=== PATIENT | female | born 1935 | race Caucasian/White ===

== ENCOUNTER 2020-07-11 11:30 | Observation (INO) ==
[2020-07-11] MEDS ORDERED: hydrALAZINE HCL 20 MG/ML VIAL IV STA (13:12)
[2020-07-11 13:16] LABS: Basophils # (auto) 0.03 K/uL (0-0.2); Basophils % (auto) 0.3 %; Eosinophils # (auto) 0.43 K/uL (0-0.5); Eosinophils % (auto) 3.9 %; Hematocrit (blood only) 41.2 % (37-47); Hemoglobin 13.5 g/dL (12.0-16.0); Immature Granulocytes # (auto) 0.02 K/uL (0.00-0.02); Immature Granulocytes % (auto) 0.2 %; Lymphocytes # (auto) 2.22 K/uL (1.2-3.4); Lymphocytes % (auto) 20.3 %; Mean Corpuscular Hemoglobin 29.2 pg (25-34); Mean Corpuscular Hgb Conc 32.8 g/dL (32-36); Mean Platelet Volume 10.5 fL (7.4-10.4); Monocytes # (auto) 0.49 K/uL (0.11-0.59); Monocytes % (auto) 4.5 %; Neutrophils # (auto) 7.72 K/uL (1.4-6.5); Neutrophils % (auto) 70.8 %; Platelet Count 250 K/uL (130-400); RDW Standard Deviation 48.7 fL (36.4-46.3); Red Blood Count 4.63 M/uL (4.2-5.4); White Blood Count 10.91 K/uL (4.8-10.8)
--- NOTE | 2020-07-11 13:28 | XRay Report ---
XR chest 1V portable CLINICAL HISTORY: Chest Pain COMPARISON STUDY: No previous studies for comparison. FINDINGS: No pneumothorax. No pleural effusion. Bilateral lungs are slightly hyperinflated with flattening in the right the left hemidiaphragm. Small atelectasis is seen at the right base. Cardiomediastinal silhouette is within normal limits in size. No significant pulmonary vascular congestion.. Aorta is calcified. Osseous structures: Degenerative changes of the spine. IMPRESSION: 1. Hyperinflated bilateral lungs. 2. Minimal atelectasis at the right base. ACT 112: Negative or not required by law. The above report was generated using voice recognition software. It may contain grammatical, syntax o r spelling errors. Electronically signed by: Cherly Mabry DO 07/11/2020 1:26 PM
[2020-07-11 13:30] LABS: Alanine Aminotransferase 16 U/L (12-78); Albumin Level 3.7 gm/dl (3.4-5.0); BUN Creatinine Ratio 16.5 (10-20); Blood Urea Nitrogen 32 mg/dl (7-18); Calcium 9.4 mg/dl (8.5-10.1); Carbon Dioxide 24 mmol/L (21-32); Chloride 110 mmol/L (98-107); Creatinine Clr Calc Pharmacy 21.4 ml/min; Est GFR (African American) 27.8 ml/min; Glucose 127 mg/dl (70-99); Lipase 87 U/L (73-393); Potassium 4.1 mmol/L (3.5-5.1); Sodium 141 mmol/L (136-145)
[2020-07-11 13:35] LABS: Albumin Globulin Ratio 0.9 (0.9-2); Alkaline Phosphatase 70 U/L (45-117); Aspartate Aminotransferase 12 U/L (15-37); Bilirubin,Total 0.7 mg/dl (0.2-1); Globulin 4.1 gm/dl (2.5-4.0); Total Protein 7.8 gm/dl (6.4-8.2); Troponin I < 0.015 ng/ml (0-0.045)
--- NOTE | 2020-07-11 14:17 | CT Scan Report ---
CT SCAN OF THE BRAIN WITHOUT IV CONTRAST CLINICAL HISTORY: Hypertension. Headache. COMPARISON STUDY: No priors. TECHNIQUE: Unenhanced axial CT scan of the brain is performed from the vertex to the skull base. A do se lowering technique was utilized adhering to the principles of ALARA. CT DOSE: 525.26 mGycm FINDINGS: Brain parenchyma: There are age-related involutional changes noting mild subcortical and periventric ular microangiopathic change. There is no hemorrhage, mass effect, or evidence of acute territorial i schemia by CT criteria. Mineralization is noted in the basal ganglia. 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 Gallegos-white matter differentiation is preserved. No extra-axial fluid collection i s seen. Ventricles, sulci, cisterns: Prominent secondary to involutional change. Intracranial vasculature: There is atherosclerotic calcification of the cavernous carotid and vertebr al arteries. Calvarium: Unremarkable. Sinuses and mastoids: The visualized paranasal sinuses are clear. There is a moderate right mastoid e ffusion. The left mastoid air cells are well pneumatized. Orbits: The bony orbits are grossly intact. There are bilateral ocular lens implants. IMPRESSION: There is no hemorrhage, mass effect, or evidence of acute territorial ischemia by CT crit nat. ACT 112: Negative or not required by law. Electronically signed by: Dalton Vasquez M.D. 07/11/2020 2:16 PM
[2020-07-11] MEDS ORDERED: amLODIPine BESYLATE 5 MG TAB PO ONE ×2 (14:44→19:15)
[2020-07-11] MEDS ORDERED: hydrALAZINE HCL 20 MG/ML VIAL IV ONE (15:27)
--- NOTE | 2020-07-11 15:52 | Electrocardiogram Report ---
Test Reason : Blood Pressure : / mmHG Vent. Rate : 070 BPM Atrial Rate : 070 BPM P-R Int : 174 ms QRS Dur : 074 ms QT Int : 416 ms P-R-T Axes : 037 -15 037 degrees QTc Int : 449 ms Sinus rhythm with Premature atrial complexes Septal infarct , age undetermined Abnormal ECG No previous ECGs available Confirmed by Leif Peters ([id number]) on 07/11/2020 3:51:25 PM Referred By: REFERRED SELF Confirmed By:Leif Peters
--- NOTE | 2020-07-11 15:58 | Emergency Department Note ---
History of Present Illness General Chief complaint: Hypertension Source: patient, family (Daughter via phone), EMS and RN notes reviewed Mode of arrival: EMS Limitations: no limitations and other (?memory impairment) History of Present Illness Provider complaint: Hypertension, mild headache, blurry vision, sent by cardiology This patient is an 85-year-old female who presents to the emergency department with complaints of high blood pressure. Patient presented to her [employer], Dr. Rondon's office today for routine appointment. Patient was noted to have markedly elevated blood pressure. She states she drove herself here from [place] and got lost. She called her daughter who was able to get her to the office however the patient states her vision was blurry and she was not able to see the signs. Patient states she developed a headache behind the eyes. Staff at the [employer] office called EMS to direct the patient to the emergency department for treatment of the hypertension. According to the patient's daughter patient's blood pressure is either "in the dangerous level or too low." She attributes this to the stress of driving to the appointment. Home Medications Medication Instructions Recorded Confirmed Type aspirin 81 mg PO DAILY 07/11/20 07/11/20 History bupropion HCl 100 mg PO BID 07/11/20 07/11/20 History carvedilol 12.5 mg PO BID 07/11/20 07/11/20 History olopatadine 1 drp OPB DAILY 07/11/20 07/11/20 History rosuvastatin 20 mg PO HS 07/11/20 07/11/20 History amlodipine 5 mg PO QAM #0 tab 07/12/20 07/11/20 Rx amlodipine [Norvasc] 2.5 mg PO HS #0 tab 07/12/20 07/11/20 Rx hydralazine 10 mg PO TID #90 tab 07/12/20 Rx losartan 50 mg PO BID #0 tab 07/12/20 07/11/20 Rx Allergies Allergy/AdvReac Type Severity Reaction Status Date / Time codeine AdvReac Unknown Unknown Unverified 07/11/20 13:57 latex AdvReac Unknown Unknown Unverified 07/11/20 13:57 Penicillins AdvReac Unknown Unknown Unverified 07/11/20 13:57 Tetanus Vaccines and Toxoid AdvReac Unknown Unknown Unverified 07/11/20 13:57 Past Med/Surg History Medical History Asymptomatic carotid artery stenosis Atrial fibrillation Chronic interstitial lung disease Depression Hyperlipidemia Hypertension Lupus (systemic lupus erythematosus) Memory impairment Sacroiliac dysfunction TIA (transient ischemic attack) Tobacco smoker, 20 cigarettes or fewer per day Surgical History H/O excision of lamina of cervical vertebra for decompression of spinal cord H/O sinus surgery Social History Smoking Status: Current every day smoker Tobacco Type: Cigarettes Cigarettes Per Day: 5-8; Do You Dip or Chew Tobacco: No; Hx Alcohol Use: Yes Hx Substance Use: No Preferred Language: Setswana Communication Ability: Effective Transmission Builder Required: No Beliefs That Will Affect Care: Baptist Baptist Beliefs: [employer]ar[employer] marital status: / Current Living Situation: Alone Current Living Situation Comment: elderly apartment complex current occupational status: retired Other Information That Helps Us Care for You: No Feels Safe at Home: Yes Safety Concerns: Feels Safe At This Time Assistive Devices: None Review of Systems See HPI for pertinent positives & negatives. and A total of 10 systems reviewed and were otherwise negative Physical Exam Vital Signs Vital Signs - 24 hr 07/11/20 11:37 07/11/20 11:38 07/11/20 12:09 Temperature 36.5 C Temperature Source Oral Pulse Rate 69 90 69 Pulse Rate [Left Finger] 90 Pulse Rate from SpO2 Sensor 68 73 Pulse Rhythm Irregular Pulse Rhythm [Left Finger] Regular Pulse Strength Normal Pulse Strength [Left Finger] Normal Respiratory Rate 18 16 19 Respiratory Effort / Characteristics Non-Labored Respiratory Depth Normal Respiratory Pattern Regular Blood Pressure 255/151 H 255/151 H Blood Pressure [Right Arm] 255/151 H Blood Pressure Mean 185 185 Blood Pressure Mean [Right Arm] 185 Blood Pressure Position Sitting Pulse Oximetry 96 99 97 Oxygen Delivery Method Room Air Sepsis Recent Fever Within 48 Hours No Sepsis New/Unexplained Change in Mental Status N/A Sepsis Action Taken by Nursing No Action Required 07/11/20 12:10 07/11/20 12:20 07/11/20 12:30 Temperature Temperature Source Pulse Rate 72 70 73 Pulse Rate [Left Finger] Pulse Rate from SpO2 Sensor 73 66 72 Pulse Rhythm Pulse Rhythm [Left Finger] Pulse Strength Pulse Strength [Left Finger] Respiratory Rate 19 22 17 Respiratory Effort / Characteristics Respiratory Depth Respiratory Pattern Blood Pressure Blood Pressure [Right Arm] Blood Pressure Mean Blood Pressure Mean [Right Arm] Blood Pressure Position Pulse Oximetry 96 95 97 Oxygen Delivery Method Sepsis Recent Fever Within 48 Hours Sepsis New/Unexplained Change in Mental Status Sepsis Action Taken by Nursing 07/11/20 12:40 07/11/20 12:50 07/11/20 12:57 Temperature Temperature Source Pulse Rate 65 68 Pulse Rate [Left Finger] 70 Pulse Rate from SpO2 Sensor 65 Pulse Rhythm Pulse Rhythm [Left Finger] Regular Pulse Strength Pulse Strength [Left Finger] Respiratory Rate 20 20 16 Respiratory Effort / Characteristics Respiratory Depth Normal Respiratory Pattern Blood Pressure Blood Pressure [Right Arm] 228/146 H Blood Pressure Mean Blood Pressure Mean [Right Arm] 173 Blood Pressure Position Pulse Oximetry 98 Oxygen Delivery Method Sepsis Recent Fever Within 48 Hours Sepsis New/Unexplained Change in Mental Status Sepsis Action Taken by Nursing 07/11/20 13:00 07/11/20 13:05 07/11/20 13:10 Temperature Temperature Source Pulse Rate 69 70 70 Pulse Rate [Left Finger] Pulse Rate from SpO2 Sensor Pulse Rhythm Pulse Rhythm [Left Finger] Pulse Strength Pulse Strength [Left Finger] Respiratory Rate 19 16 19 Respiratory Effort / Characteristics Respiratory Depth Respiratory Pattern Blood Pressure Blood Pressure [Right Arm] Blood Pressure Mean Blood Pressure Mean [Right Arm] Blood Pressure Position Pulse Oximetry 98 Oxygen Delivery Method Room Air Sepsis Recent Fever Within 48 Hours Sepsis New/Unexplained Change in Mental Status Sepsis Action Taken by Nursing 07/11/20 13:12 07/11/20 13:25 07/11/20 13:28 Temperature Temperature Source Pulse Rate 67 82 78 Pulse Rate [Left Finger] Pulse Rate from SpO2 Sensor 65 82 79 Pulse Rhythm Pulse Rhythm [Left Finger] Pulse Strength Pulse Strength [Left Finger] Respiratory Rate 20 21 21 Respiratory Effort / Characteristics Respiratory Depth Respiratory Pattern Blood Pressure 221/90 H 226/91 H Blood Pressure [Right Arm] Blood Pressure Mean 133 136 Blood Pressure Mean [Right Arm] Blood Pressure Position Pulse Oximetry 99 97 99 Oxygen Delivery Method Sepsis Recent Fever Within 48 Hours Sepsis New/Unexplained Change in Mental Status Sepsis Action Taken by Nursing 07/11/20 13:30 07/11/20 13:32 07/11/20 13:40 Temperature Temperature Source Pulse Rate 74 77 Pulse Rate [Left Finger] Pulse Rate from SpO2 Sensor 74 77 Pulse Rhythm Pulse Rhythm [Left Finger] Pulse Strength Pulse Strength [Left Finger] Respiratory Rate 19 24 Respiratory Effort / Characteristics Respiratory Depth Respiratory Pattern Blood Pressure 223/79 H Blood Pressure [Right Arm] Blood Pressure Mean 127 Blood Pressure Mean [Right Arm] Blood Pressure Position Pulse Oximetry 99 98 Oxygen Delivery Method Room Air Sepsis Recent Fever Within 48 Hours Sepsis New/Unexplained Change in Mental Status Sepsis Action Taken by Nursing 07/11/20 13:41 07/11/20 13:50 07/11/20 13:51 Temperature Temperature Source Pulse Rate 93 H 72 72 Pulse Rate [Left Finger] Pulse Rate from SpO2 Sensor 79 72 73 Pulse Rhythm Pulse Rhythm [Left Finger] Pulse Strength Pulse Strength [Left Finger] Respiratory Rate 22 20 24 Respiratory Effort / Characteristics Respiratory Depth Respiratory Pattern Blood Pressure 199/82 H 214/76 H Blood Pressure [Right Arm] Blood Pressure Mean 121 122 Blood Pressure Mean [Right Arm] Blood Pressure Position Pulse Oximetry 98 98 98 Oxygen Delivery Method Sepsis Recent Fever Within 48 Hours Sepsis New/Unexplained Change in Mental Status Sepsis Action Taken by Nursing 07/11/20 14:06 07/11/20 14:10 07/11/20 14:11 Temperature Temperature Source Pulse Rate 83 75 77 Pulse Rate [Left Finger] Pulse Rate from SpO2 Sensor 82 75 76 Pulse Rhythm Pulse Rhythm [Left Finger] Pulse Strength Pulse Strength [Left Finger] Respiratory Rate 15 20 20 Respiratory Effort / Characteristics Respiratory Depth Respiratory Pattern Blood Pressure 196/81 H Blood Pressure [Right Arm] Blood Pressure Mean 119 Blood Pressure Mean [Right Arm] Blood Pressure Position Pulse Oximetry 100 100 100 Oxygen Delivery Method Sepsis Recent Fever Within 48 Hours Sepsis New/Unexplained Change in Mental Status Sepsis Action Taken by Nursing 07/11/20 14:20 07/11/20 14:21 07/11/20 14:30 Temperature Temperature Source Pulse Rate 71 71 72 Pulse Rate [Left Finger] Pulse Rate from SpO2 Sensor 71 71 72 Pulse Rhythm Pulse Rhythm [Left Finger] Pulse Strength Pulse Strength [Left Finger] Respiratory Rate 19 20 21 Respiratory Effort / Characteristics Respiratory Depth Respiratory Pattern Blood Pressure 190/73 H 209/72 H Blood Pressure [Right Arm] Blood Pressure Mean 112 117 Blood Pressure Mean [Right Arm] Blood Pressure Position Pulse Oximetry 100 100 98 Oxygen Delivery Method Sepsis Recent Fever Within 48 Hours Sepsis New/Unexplained Change in Mental Status Sepsis Action Taken by Nursing 07/11/20 14:31 07/11/20 14:40 07/11/20 14:41 Temperature Temperature Source Pulse Rate 76 72 71 Pulse Rate [Left Finger] Pulse Rate from SpO2 Sensor 75 71 71 Pulse Rhythm Pulse Rhythm [Left Finger] Pulse Strength Pulse Strength [Left Finger] Respiratory Rate 20 18 18 Respiratory Effort / Characteristics Respiratory Depth Respiratory Pattern Blood Pressure 208/72 H Blood Pressure [Right Arm] Blood Pressure Mean 117 Blood Pressure Mean [Right Arm] Blood Pressure Position Pulse Oximetry 98 98 99 Oxygen Delivery Method Sepsis Recent Fever Within 48 Hours Sepsis New/Unexplained Change in Mental Status Sepsis Action Taken by Nursing 07/11/20 14:50 07/11/20 14:51 07/11/20 15:00 Temperature Temperature Source Pulse Rate 73 90 72 Pulse Rate [Left Finger] Pulse Rate from SpO2 Sensor 70 77 71 Pulse Rhythm Pulse Rhythm [Left Finger] Pulse Strength Pulse Strength [Left Finger] Respiratory Rate 23 20 18 Respiratory Effort / Characteristics Respiratory Depth Respiratory Pattern Blood Pressure 200/75 H 216/75 H Blood Pressure [Right Arm] Blood Pressure Mean 116 122 Blood Pressure Mean [Right Arm] Blood Pressure Position Pulse Oximetry 97 99 98 Oxygen Delivery Method Sepsis Recent Fever Within 48 Hours Sepsis New/Unexplained Change in Mental Status Sepsis Action Taken by Nursing 07/11/20 15:01 Temperature Temperature Source Pulse Rate 76 Pulse Rate [Left Finger] Pulse Rate from SpO2 Sensor 75 Pulse Rhythm Pulse Rhythm [Left Finger] Pulse Strength Pulse Strength [Left Finger] Respiratory Rate 18 Respiratory Effort / Characteristics Respiratory Depth Respiratory Pattern Blood Pressure Blood Pressure [Right Arm] Blood Pressure Mean Blood Pressure Mean [Right Arm] Blood Pressure Position Pulse Oximetry 98 Oxygen Delivery Method Sepsis Recent Fever Within 48 Hours Sepsis New/Unexplained Change in Mental Status Sepsis Action Taken by Nursing Vital signs reviewed. General: Well-appearing 85-year-old female, in no significant distress. HEENT: No scleral icterus/conjunctival injection, PERRLA, neck supple. Atraumatic. No meningeal signs Cardiovascular: Regular rate and rhythm, occasional ectopy, no extra sounds. Pulmonary: Clear to auscultation bilaterally, normal work of breathing. Abdomen: Soft, nontender, nondistended, positive bowel sounds. Musculoskeletal: Atraumatic, no peripheral edema. Neurologic: Patient awake alert and oriented. Answers most questions ap propriately, full strength in all 4 extremities. Cranial nerves 2 through 12 grossly intact. Skin: Warm, dry, no rash Course Administered Medications Discontinued Medications Amlodipine Besylate (Amlodipine Besylate 5 Mg Tab) 5 mg PO NOW ONE Stop: 07/11/20 14:45 Last Admin: 07/11/20 15:07 Dose: 5 mg Documented by: [id number] Amlodipine Besylate (Amlodipine Besylate 5 Mg Tab) 7.5 mg PO DAILY MAR[place]UY Stop: 08/11/20 08:59 Last Admin: 07/12/20 08:08 Dose: 7.5 mg Documented by: [id number] Amlodipine Besylate (Amlodipine Besylate 5 Mg Tab) 2.5 mg PO NOW ONE Stop: 07/11/20 19:16 Last Admin: 07/11/20 20:21 Dose: 2.5 mg Documented by: [id number] Aspirin (Aspirin 81 Mg Ectab) 81 mg PO DAILY [place]UY Stop: 08/11/20 08:59 Last Admin: 07/12/20 08:08 Dose: 81 mg Documented by: [id number] Bupropion HCl (Bupropion Sr 100 Mg Tabcr) 100 mg PO BID [place] Stop: 08/10/20 20:59 Last Admin: 07/12/20 08:08 Dose: 100 mg Documented by: [id number] Admin: 07/11/20 20:23 Dose: 100 mg Documented by: [id number] Carvedilol (Carvedilol 12.5 Mg Tab) 12.5 mg PO BID [place]Y Stop: 08/10/20 20:59 Last Admin: 07/12/20 08:07 Dose: 12.5 mg Documented by: [id number] Admin: 07/11/20 20:23 Dose: 12.5 mg Documented by: [id number] Hydralazine HCl (Hydralazine Hcl 20 Mg/Ml Vial) 10 mg IV NOW STA Stop: 07/11/20 13:13 Last Admin: 07/11/20 13:27 Dose: 10 mg Documented by: [id number] Hydralazine HCl (Hydralazine Hcl 20 Mg/Ml Vial) 5 mg IV NOW ONE Stop: 07/11/20 15:28 Last Admin: 07/11/20 15:38 Dose: 5 mg Documented by: [id number] Hydralazine HCl (Hydralazine 10 Mg Tab) 10 mg PO TID [place]Y Stop: 08/10/20 22:14 Last Admin: 07/12/20 08:07 Dose: 10 mg Documented by: [id number] Admin: 07/11/20 23:29 Dose: 10 mg Documented by: [id number] Hydralazine HCl (Hydralazine 10 Mg Tab) 10 mg PO TID [place]Y Stop: 08/11/20 13:59 Last Admin: 07/12/20 14:13 Dose: 10 mg Documented by: [id number] Losartan Potassium (Losartan Potassium 50 Mg Tab) 100 mg PO DAILY [place]Y Stop: 08/11/20 08:59 Last Admin: 07/12/20 08:08 Dose: 100 mg Documented by: [id number] Miscellaneous (Order Awaiting Action) 1 ea N/A QS [place] Stop: 08/11/20 00:00 Last Admin: 07/12/20 14:15 Dose: Not Given Documented by: [id number] Admin: 07/12/20 09:05 Dose: Not Given Documented by: [id number] Admin: 07/11/20 23:53 Dose: Not Given Documented by: [id number] Rosuvastatin Calcium (Rosuvastatin Calcium 20 Mg Tab) 20 mg PO HS [place] Stop: 08/10/20 20:59 Last Admin: 07/11/20 20:24 Dose: 20 mg Documented by: [id number] Medical Decision Making Differential Diagnosis Hypertensive urgency, medication noncompliance, intracranial hemorrhage, migraine headache, intracranial mass, TIA, renal artery stenosis, renal failure, anxiety. Medical Records Attestation: I reviewed the patient's medical records. Home Medications Current Medication List: was personally reviewed by me Laboratory Data Attestation: I reviewed the patient's lab results. Result diagrams: 07/12/20 06:57 07/12/20 06:57 Lab Results 07/11/20 07/11/20 07/11/20 Range/Units 11:57 11:57 11:57 WBC 10.91 H (4.8-10.8) K/uL RBC 4.63 (4.2-5.4) M/uL Hgb 13.5 (12.0-16.0) g/dL Hct 41.2 (37-47) % MCV 89.0 (80-100) fL MCH 29.2 (25-34) pg MCHC 32.8 (32-36) g/dL RDW Std Deviation 48.7 H (36.4-46.3) fL RDW Coeff of Gabriela 15.0 H (11.5-14.5) % Plt Count 250 (130-400) K/uL MPV 10.5 H (7.4-10.4) fL Immature Gran % (Auto) 0.2 % Neut % (Auto) 70.8 % Lymph % (Auto) 20.3 % [place] % (Auto) 4.5 % Eos % (Auto) 3.9 % Baso % (Auto) 0.3 % Neut # (Auto) 7.72 H (1.4-6.5) K/uL Lymph # (Auto) 2.22 (1.2-3.4) K/uL [place] # (Auto) 0.49 (0.11-0.59) K/uL Eos # (Auto) 0.43 (0-0.5) K/uL Baso # (Auto) 0.03 (0-0.2) K/uL Immature Gran # (Auto) 0.02 (0.00-0.02) K/uL APTT 27.0 (21.0-31.0) Seconds PTT Ratio 1.0 Sodium 141 (136-145) mmol/L Potassium 4.1 (3.5-5.1) mmol/L Chloride 110 H (98-107) mmol/L Carbon Dioxide 24 (21-32) mmol/L Anion Gap 7.0 (3-11) BUN 32 H (7-18) mg/dl Creatinine 1.91 H (0.6-1.2) mg/dl Est Cr Clr Drug Dosing 21.4 ml/min Est GFR ( Amer) 27.8 ml/min Est GFR (Non-Af Amer) 24.0 ml/min BUN/Creatinine Ratio 16.5 (10-20) Glucose 127 H (70-99) mg/dl Calcium 9.4 (8.5-10.1) mg/dl Total Bilirubin 0.7 (0.2-1) mg/dl AST 12 L (15-37) U/L ALT 16 (12-78) U/L Alkaline Phosphatase 70 (45-117) U/L Troponin I < 0.015 (0-0.045) ng/ml Total Protein 7.8 (6.4-8.2) gm/dl Albumin 3.7 (3.4-5.0) gm/dl Globulin 4.1 H (2.5-4.0) gm/dl Albumin/Globulin Ratio 0.9 (0.9-2) Lipase 87 (73-393) U/L Urine Color Urine Appearance (Clear) Urine pH (4.5-7.5) Ur Specific [place] (1.000-1.030) Urine Protein (Negative) Urine Glucose (UA) (Negative) Urine Ketones (Negative) Urine Blood (Negative) Urine Nitrite (Negative) Urine Bilirubin (Negative) Urine Urobilinogen (Negative) Ur Leukocyte Esterase (Negative) Urine WBC (Auto) (0-5) /hpf Urine RBC (Auto) (0-4) /hpf U Hyaline Cast (Auto) (0-5) /lpf U Epithel Cells (Auto) (0-5) /lpf Urine Bacteria (Auto) (Negative) COVID-19 Eval Order SARS-CoV-2 (PCR) (Negative) 07/11/20 07/11/20 07/11/20 Range/Units 15:25 15:25 15:30 WBC (4.8-10.8) K/uL RBC (4.2-5.4) M/uL Hgb (12.0-16.0) g/dL Hct (37-47) % MCV (80-100) fL MCH (25-34) pg MCHC (32-36) g/dL RDW Std Deviation (36.4-46.3) fL RDW Coeff of Gabriela (11.5-14.5) % Plt Count (130-400) K/uL MPV (7.4-10.4) fL Immature Gran % (Auto) % Neut % (Auto) % Lymph % (Auto) % [place] % (Auto) % Eos % (Auto) % Baso % (Auto) % Neut # (Auto) (1.4-6.5) K/uL Lymph # (Auto) (1.2-3.4) K/uL [place] # (Auto) (0.11-0.59) K/uL Eos # (Auto) (0-0.5) K/uL Baso # (Auto) (0-0.2) K/uL Immature Gran # (Auto) (0.00-0.02) K/uL APTT (21.0-31.0) Seconds PTT Ratio Sodium (136-145) mmol/L Potassium (3.5-5.1) mmol/L Chloride (98-107) mmol/L Carbon Dioxide (21-32) mmol/L Anion Gap (3-11) BUN (7-18) mg/dl Creatinine (0.6-1.2) mg/dl Est Cr Clr Drug Dosing ml/min Est GFR ( Amer) ml/min Est GFR (Non-Af Amer) ml/min BUN/Creatinine Ratio (10-20) Glucose (70-99) mg/dl Calcium (8.5-10.1) mg/dl Total Bilirubin (0.2-1) mg/dl AST (15-37) U/L ALT (12-78) U/L Alkaline Phosphatase (45-117) U/L Troponin I (0-0.045) ng/ml Total Protein (6.4-8.2) gm/dl Albumin (3.4-5.0) gm/dl Globulin (2.5-4.0) gm/dl Albumin/Globulin Ratio (0.9-2) Lipase (73-393) U/L Urine Color Yellow Urine Appearance Clear (Clear) Urine pH 5.0 (4.5-7.5) Ur Specific [place] 1.008 (1.000-1.030) Urine Protein 1+ H (Negative) Urine Glucose (UA) Negative (Negative) Urine Ketones Negative (Negative) Urine Blood Trace H (Negative) Urine Nitrite Negative (Negative) Urine Bilirubin Negative (Negative) Urine Urobilinogen Negative (Negative) Ur Leukocyte Esterase Negative (Negative) Urine WBC (Auto) 1-5 (0-5) /hpf Urine RBC (Auto) 0-4 (0-4) /hpf U Hyaline Cast (Auto) 0 (0-5) /lpf U Epithel Cells (Auto) 10-20 H (0-5) /lpf Urine Bacteria (Auto) Negative (Negative) COVID-19 Eval Order Covid19 at [facility] SARS-CoV-2 (PCR) NEGATIVE (Negative) Imaging Data Radiologist's Impression: Chest X-Ray 07/11/20 13:01 XR chest 1V portable CLINICAL HISTORY: Chest Pain COMPARISON STUDY: No previous studies for comparison. FINDINGS: No pneumothorax. No pleural effusion. Bilateral lungs are slightly hyperinflated with flattening in the right the left hemidiaphragm. Small atelectasis is seen at the right base. Cardiomediastinal silhouette is within normal limits in size. No significant pulmonary vascular congestion.. Aorta is calcified. Osseous structures: Degenerative changes of the spine. IMPRESSION: 1. Hyperinflated bilateral lungs. 2. Minimal atelectasis at the right base. ACT 112: Negative or not required by law. The above report was generated using voice recognition software. It may contain grammatical, syntax or spelling errors. Electronically signed by: Cheryl Mabry DO 07/11/2020 1:[address] 07/11/20 13:37 CT SCAN OF THE BRAIN WITHOUT IV CONTRAST CLINICAL HISTORY: Hypertension. Headache. COMPARISON STUDY: No priors. TECHNIQUE: Unenhanced axial CT scan of the brain is performed from the vertex to the skull base. A dose lowering technique was utilized adhering to the principles of ALARA. CT DOSE: 525.26 mGycm FINDINGS: Brain parenchyma: There are age-related involutional changes noting mild subcortical and periventricular microangiopathic change. There is no hemorrhage, mass effect, or evidence of acute territorial ischemia by CT criteria. Mineralization is noted in the basal ganglia. 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 Gallegos-white matter differentiation is preserved. No extra-axial fluid collection is seen. Ventricles, sulci, cisterns: Prominent secondary to involutional change. Intracranial vasculature: There is atherosclerotic calcification of the cavernous carotid and vertebral arteries. Calvarium: Unremarkable. Sinuses and mastoids: The visualized paranasal sinuses are clear. There is a moderate right mastoid effusion. The left mastoid air cells are well pneumatized. Orbits: The bony orbits are grossly intact. There are bilateral ocular lens implants. IMPRESSION: There is no hemorrhage, mass effect, or evidence of acute territorial ischemia by CT criteria. ACT 112: Negative or not required by law. Electronically signed by: Dalton Vasquez M.D. 07/11/2020 2:16 PM ECG Data Attestation: I personally reviewed and interpreted this ECG as follows: Indication: + other (Headache/hypertension) Rate (beats per minute): 70 Rhythm: + sinus rhythm ECG Intervals/blocks: + Normal QT-c ECG ST segments: + Normal ST segments ECG Findings: + Q waves (Septal) and + PACs Comparison ECG Date: no prior available Blood Pressure Blood Pressure Findings: Elevated blood pressure Blood Pressure Disposition: further management by hospitalist MDM Narrative This patient was evaluated and appeared to be in no significant distress. Physical examination is fairly reassuring. Patient has no focal neurologic deficit although the marked hypertension, headache and visual changes certainly concerning. CT scan of the head was performed and revealed no acute ischemic change. Patient was medicated with IV hydralazine 10 mg with minimal improvement. She was then given a second dose of 5 mg. Laboratory work reveals renal insufficiency. I did speak with the patient's daughter who states most of her laboratory work is done through [facility] in [place]. Those records were requested and it appears that the patient's renal insufficiency is chronic. Patient also has a history of smoking, lupus and atrial fibrillation. Her blood pressure has been labile. Given the above, the patient's case was discussed with the hospitalist service will evaluate the patient for further management. Patient was made aware of the plans and agrees. Impression & Plan Hypertension, Memory impairment, Tobacco smoker, 20 cigarettes or fewer per day, Headache, Visual changes Discharge Plan Visit Data Chief Complaint: Hypertension ED Provider: Pari Hernández Discharge Problem: Hypertension, Memory impairment, Tobacco smoker, 20 cigarettes or fewer per day, Headache, Visual changes Patient Disposition: Admitted As Inpatient Discharge Instructions Interventions: ED Discharge Assessment Last Done: 07/11/20 18:11 Discharge Problem: Hypertension Qualifiers: Hypertension type: unspecified Qualified Code(s): I10 - Essential (primary) hypertension Headache Qualifiers: Headache type: unspecified Headache chronicity pattern: acute headache Intractability: not intractable Qualified Code(s): R51.9 - Headache, unspecified
[2020-07-11 16:30] LABS: Appearance Urine Clear (Clear); Bacteria Urine Automated Negative (Negative); Bilirubin Urine Negative (Negative); Blood Urine Trace (Negative); Cast Urine Automated 0 /lpf (0-5); Color Urine Yellow; Glucose Urine UA Negative (Negative); Ketones Urine Negative (Negative); Leukocyte Esterase Urine Negative (Negative); Nitrite Urine Negative (Negative); Protein Urine 1+ (Negative); RBC Urine Automated 0-4 /hpf (0-4); Specific Gravity Urine 1.008 (1.000-1.030); Urobilinogen Urine Negative (Negative)
--- NOTE | 2020-07-11 17:31 | History & Physical Report ---
Date of Service July 11, 2020 Assessment & Plan (1) Hypertension: Patient has accelerated hypertension, essential asymptomatic For now, will give patient her usual nighttime medications which consist of the following: Amlodipine 7.5 mg nightly Carvedilol 12.5 mg p.o. twice daily Losartan 100 mg daily Patient received 5 mg of hydralazine IV along with 5 mg of Norvasc tonight. Patient relates previous history where her blood pressure was too low and her blood pressure medications were decreased. Consider addition of hydrochlorothiazide, patient has chronic kidney dysfunction which is at baseline We will asked Dr. Caicedo to consult for further recommendations regarding management. (2) CKD (chronic kidney disease) stage 4, GFR 15-29 ml/min: Compared to laboratory work from February of this year from [facility], creatinine is 2 Continue medications as noted including losartan 100 mg Consider routine inpatient versus outpatient nephrology consultation if not already obtained (3) Hyperlipidemia: Continue Crestor 20 mg daily (4) Depression: Continue bupropion 100 mg twice a day History of Present Illness Chief Complaint: Hypertension Primary Care Provider: Eden Cummins MD This is an 84-year-old female with past medical history of hypertension with labile blood pressures, hyperlipidemia, and depression that presents today with hypertension. Patient is pleasant and good historian. Patient tells me she has been essentially asymptomatic today. She woke up earlier this morning. She lives in [place] and drove to [place] to see Dr. Clarke for a routine appointment. When she checked in, her blood pressure was taken multiple times by several of the staff there including Dr. Clarke himself. Her blood pressure was extremely elevated and she was told to present to the emergency room for further evaluation. On presentation here, her blood pressure was documented as high as 221/90 although staff tells me systolic had averaged over 250. Patient denies any symptoms such as chest pain, shortness of breath, palpitation, abdominal pain, vertigo, fever or chills. When questioned further, she did note a very mild headache focused over her right eye. She did also note she was having some mild trouble seeing distances usually not an issue for her. In the emergency room, patient was given hydralazine 5 mg IV as well as 5 mg of Norvasc which is one of her regular medications. At time my evaluation her blood pressure was down to 181 systolic. Patient is now being placed in observation for further management of her blood pressure. Allergies Allergy/AdvReac Type Severity Reaction Status Date / Time codeine AdvReac Unknown Unknown Unverified 07/11/20 13:57 latex AdvReac Unknown Unknown Unverified 07/11/20 13:57 Penicillins AdvReac Unknown Unknown Unverified 07/11/20 13:57 Tetanus Vaccines and Toxoid AdvReac Unknown Unknown Unverified 07/11/20 13:57 Home Medications Medication Instructions Recorded Confirmed Type amlodipine 5 mg PO DAILY 07/11/20 07/11/20 History amlodipine [Norvasc] 2.5 mg PO DAILY 07/11/20 07/11/20 History aspirin [Aspir-81] 81 mg PO DAILY 07/11/20 07/11/20 History bupropion HCl 100 mg PO BID 07/11/20 07/11/20 History carvedilol 12.5 mg PO BID 07/11/20 07/11/20 History losartan 100 mg PO DAILY 07/11/20 07/11/20 History olopatadine 1 drp OPB DAILY 07/11/20 07/11/20 History rosuvastatin 20 mg PO HS 07/11/20 07/11/20 History Past Med/Surg History Medical History (Updated 07/11/20 @ 17:28 by Tiago Dial DO) Asymptomatic carotid artery stenosis Atrial fibrillation Chronic interstitial lung disease Depression Hyperlipidemia Hypertension Lupus (systemic lupus erythematosus) Memory impairment Sacroiliac dysfunction TIA (transient ischemic attack) Tobacco smoker, 20 cigarettes or fewer per day Surgical History (Updated 07/11/20 @ 15:55 by Pari Hernández MD) H/O excision of lamina of cervical vertebra for decompression of spinal cord H/O sinus surgery Social History (Updated 07/11/20 @ 15:58 by Pari Hernández MD) Smoking Status: Current every day smoker Tobacco Type: Cigarettes Preferred Language: Maori marital status: / Current Living Situation: Alone Current Living Situation Comment: elderly apartment complex current occupational status: retired Feels Safe at Home: Yes Review of Systems Constitutional: no fever, no chills, no weakness, no weight loss and no weight gain Eyes: as per Subjective / HPI; no blind spots, no diplopia, no eye pain and no photophobia Mild blurry vision Respiratory: no cough, no chest congestion, no dyspnea and no dyspnea on exertion Cardiovascular: no chest pain, no orthopnea, no palpitations, no lightheadedness and no edema Gastrointestinal: no abdominal pain, no nausea, no vomiting, no constipation and no diarrhea/loose stools Genitourinary: no dysuria, no difficulty urinating, no urinary frequency, no urinary hesitancy, no urinary urgency and no flank pain Musculoskeletal: no back pain, no neck pain, no joint pain, no stiffness and no myalgia Integumentary: no rash Neurologic: + headache(s); no gait abnormality, no unsteadiness, no falls and no generalized weakness Physical Exam Constitutional: cooperative; no acute distress Eyes: PERRL, conjunctivae normal, anicteric sclerae Neck: trachea midline, no thyromegaly Respiratory: normal respiratory effort Auscultation: + crackles (Right base); no rales, no rhonchi and no wheezes Cardiovascular: Rate/Rhythm: regular rate and regular rhythm Heart Sounds: normal S1 and normal S2 Gastrointestinal (Abdomen): Inspection/Auscultation: abdomen normal to inspection Percussion/Palpation: abdomen soft; abdomen nontender, no guarding, abdomen not rigid and no hepatosplenomegaly Skin: no rashes, warm and dry Results & Data Results & Data ([facility]) Vital Signs (Past 12 Hours) Vital Signs Temp Pulse Pulse Resp BP BP Pulse Ox 07/11/20 16:51 87 27 H 166/83 H 97 07/11/20 16:50 80 21 96 07/11/20 16:41 72 19 97 07/11/20 16:40 72 18 192/74 H 97 07/11/20 16:31 75 18 98 07/11/20 16:30 77 17 192/84 H 97 07/11/20 16:21 77 32 H 98 07/11/20 16:20 76 18 187/73 H 97 07/11/20 16:11 74 18 98 07/11/20 16:10 74 19 185/71 H 98 07/11/20 16:00 75 20 184/73 H 98 07/11/20 15:50 73 22 177/69 H 98 07/11/20 15:40 75 21 196/71 H 98 07/11/20 15:30 214/100 H 07/11/20 15:21 212/80 H 07/11/20 15:01 76 18 98 07/11/20 15:00 72 18 216/75 H 98 07/11/20 14:51 90 20 99 07/11/20 14:50 73 23 200/75 H 97 07/11/20 14:41 71 18 99 07/11/20 14:40 72 18 208/72 H 98 07/11/20 14:31 76 20 98 07/11/20 14:30 72 21 209/72 H 98 07/11/20 14:21 71 20 100 07/11/20 14:20 71 19 190/73 H 100 07/11/20 14:11 77 20 100 07/11/20 14:10 75 20 196/81 H 100 07/11/20 14:06 83 15 100 07/11/20 13:51 72 24 98 07/11/20 13:50 72 20 214/76 H 98 07/11/20 13:41 93 H 22 199/82 H 98 07/11/20 13:40 77 24 98 07/11/20 13:30 74 19 223/79 H 99 07/11/20 13:28 78 21 226/91 H 99 07/11/20 13:25 82 21 97 07/11/20 13:12 67 20 221/90 H 99 07/11/20 13:10 70 19 07/11/20 13:05 70 16 98 07/11/20 13:00 69 19 07/11/20 12:57 70 16 228/146 H 07/11/20 12:50 68 20 07/11/20 12:40 65 20 98 07/11/20 12:30 73 17 97 07/11/20 12:20 70 22 95 07/11/20 12:10 72 19 96 07/11/20 12:09 69 19 97 07/11/20 11:38 36.5 C 90 90 16 255/151 H 255/151 H 99 07/11/20 11:37 69 18 255/[address] SCAN OF THE BRAIN WITHOUT IV CONTRAST CLINICAL HISTORY: Hypertension. Headache. COMPARISON STUDY: No priors. TECHNIQUE: Unenhanced axial CT scan of the brain is performed from the vertex to the skull base. A dose lowering technique was utilized adhering to the principles of ALARA. CT DOSE: 525.26 mGycm FINDINGS: Brain parenchyma: There are age-related involutional changes noting mild subcortical and periventricular microangiopathic change. There is no hemorrhage, mass effect, or evidence of acute territorial ischemia by CT criteria. Mineralization is noted in the basal ganglia. 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 Gallegos-white matter differentiation is preserved. No extra-axial fluid collection is seen. Ventricles, sulci, cisterns: Prominent secondary to involutional change. Intracranial vasculature: There is atherosclerotic calcification of the cavernous carotid and vertebral arteries. Calvarium: Unremarkable. Sinuses and mastoids: The visualized paranasal sinuses are clear. There is a moderate right mastoid effusion. The left mastoid air cells are well pneumatized. Orbits: The bony orbits are grossly intact. There are bilateral ocular lens implants. IMPRESSION: There is no hemorrhage, mass effect, or evidence of acute territorial ischemia by CT criteria. ---- XR chest 1V portable CLINICAL HISTORY: Chest Pain COMPARISON STUDY: No previous studies for comparison. FINDINGS: No pneumothorax. No pleural effusion. Bilateral lungs are slightly hyperinflated with flattening in the right the left hemidiaphragm. Small atelectasis is seen at the right base. Cardiomediastinal silhouette is within normal limits in size. No significant pulmonary vascular congestion.. Aorta is calcified. Osseous structures: Degenerative changes of the spine. IMPRESSION: 1. Hyperinflated bilateral lungs. 2. Minimal atelectasis at the right base. PG Care Time/CCT Total # of Minutes Spent Total Time Spent with Patient: Total time spent is greater than 50% in coordination of care (as documented) at patient's floor/unit and/or counseling patient: Coding Level of Care Code 80800 OBS Care - Level 3 Diagnoses Hypertension I10 CKD (chronic kidney disease) stage 4, GFR 15-29 ml/min N18.4 Hyperlipidemia E78.5 Depression F32.9
[2020-07-11] MEDS ORDERED: ONDANSETRON INJ 2 MG/ML 2 ML VIAL IV PRN (18:51)
[2020-07-11] MEDS ORDERED: amLODIPine BESYLATE 5 MG TAB PO SCH (18:51)
[2020-07-11] MEDS ORDERED: ACETAMINOPHEN 325 MG TAB PO PRN (18:51)
[2020-07-11] MEDS: carvediloL 12.5 MG TAB PO SCH (20:23)
[2020-07-11] MEDS: buPROPion SR 100 MG TABCR PO SCH (20:23)
[2020-07-11] MEDS ORDERED: ROSUVASTATIN CALCIUM 20 MG TAB PO SCH (21:00)
[2020-07-11] MEDS: hydrALAZINE 10 MG TAB PO SCH (23:29)
[2020-07-12 07:16] LABS: Basophils # (auto) 0.02 K/uL (0-0.2); Basophils % (auto) 0.2 %; Eosinophils # (auto) 0.45 K/uL (0-0.5); Eosinophils % (auto) 4.9 %; Hematocrit (blood only) 36.9 % (37-47); Hemoglobin 12.2 g/dL (12.0-16.0); Immature Granulocytes # (auto) 0.01 K/uL (0.00-0.02); Immature Granulocytes % (auto) 0.1 %; Lymphocytes # (auto) 2.68 K/uL (1.2-3.4); Lymphocytes % (auto) 29.4 %; Mean Corpuscular Hemoglobin 29.1 pg (25-34); Mean Corpuscular Hgb Conc 33.1 g/dL (32-36); Mean Corpuscular Volume 88.1 fL (80-100); Mean Platelet Volume 10.1 fL (7.4-10.4); Monocytes # (auto) 0.54 K/uL (0.11-0.59); Monocytes % (auto) 5.9 %; Neutrophils # (auto) 5.41 K/uL (1.4-6.5); Neutrophils % (auto) 59.5 %; Platelet Count 235 K/uL (130-400); RDW Coefficient of Variation 14.9 % (11.5-14.5); RDW Standard Deviation 48.3 fL (36.4-46.3); Red Blood Count 4.19 M/uL (4.2-5.4); White Blood Count 9.11 K/uL (4.8-10.8)
[2020-07-12 07:32] LABS: BUN Creatinine Ratio 16.8 (10-20); Calcium 9.2 mg/dl (8.5-10.1); Creatinine Clr Calc Pharmacy 16.8 ml/min; Est GFR (African American) 24.4 ml/min; Magnesium 2.4 mg/dl (1.8-2.4); Potassium 4.4 mmol/L (3.5-5.1)
[2020-07-12] MEDS: hydrALAZINE 10 MG TAB PO SCH (08:07)
[2020-07-12] MEDS: carvediloL 12.5 MG TAB PO SCH (08:07)
[2020-07-12] MEDS: buPROPion SR 100 MG TABCR PO SCH (08:08)
[2020-07-12] MEDS ORDERED: amLODIPine BESYLATE 5 MG TAB PO SCH (09:00)
[2020-07-12] MEDS ORDERED: ASPIRIN 81 MG ECTAB PO SCH (09:00)
[2020-07-12] MEDS ORDERED: LOSARTAN POTASSIUM 50 MG TAB PO SCH (09:00)
--- NOTE | 2020-07-12 11:17 | Cardiology Consultation ---
Date of Consultation Vero is feeling much better this morning. She denies any the visual changes she was having yesterday when her blood pressure was greater than 220 mmHg systolic. She denies any chest pain just pressure chest heaviness. She has any shortness of breath. She has any lightheadedness going to the bathroom. She notes in retrospect her blood pressure probably was high for an extended period of time. She denies any headaches double vision or blurry vision this morning. Overall she feels like she is better and in fact she looks a lot better this mo rning. July 12, 2020 History of Present Illness Attending Physician: Benjamin Contreras Allergies Allergy/AdvReac Type Severity Reaction Status Date / Time codeine AdvReac Unknown Unknown Unverified 07/11/20 13:57 latex AdvReac Unknown Unknown Unverified 07/11/20 13:57 Penicillins AdvReac Unknown Unknown Unverified 07/11/20 13:57 Tetanus Vaccines and Toxoid AdvReac Unknown Unknown Unverified 07/11/20 13:57 Home Medications Medication Instructions Recorded Confirmed Type amlodipine 5 mg PO DAILY 07/11/20 07/11/20 History amlodipine [Norvasc] 2.5 mg PO DAILY 07/11/20 07/11/20 History aspirin [Aspir-81] 81 mg PO DAILY 07/11/20 07/11/20 History bupropion HCl 100 mg PO BID 07/11/20 07/11/20 History carvedilol 12.5 mg PO BID 07/11/20 07/11/20 History losartan 100 mg PO DAILY 07/11/20 07/11/20 History olopatadine 1 drp OPB DAILY 07/11/20 07/11/20 History rosuvastatin 20 mg PO HS 07/11/20 07/11/20 History Patient History Medical History Asymptomatic carotid artery stenosis Atrial fibrillation Chronic interstitial lung disease Depression Hyperlipidemia Hypertension Lupus (systemic lupus erythematosus) Memory impairment Sacroiliac dysfunction TIA (transient ischemic attack) Tobacco smoker, 20 cigarettes or fewer per day Surgical History H/O excision of lamina of cervical vertebra for decompression of spinal cord H/O sinus surgery Social History Smoking Status: Current every day smoker Tobacco Type: Cigarettes Cigarettes Per Day: 5-8; Do You Dip or Chew Tobacco: No; Hx Alcohol Use: Yes Hx Substance Use: No Preferred Language: Austrian Communication Ability: Effective Dust Collector Treater Required: No Beliefs That Will Affect Care: Buddhism Buddhism Beliefs: Scientologist marital status: / Current Living Situation: Alone Current Living Situation Comment: elderly apartment complex current occupational status: retired Other Information That Helps Us Care for You: No Feels Safe at Home: Yes Safety Concerns: Feels Safe At This Time Assistive Devices: None Results & Data ([facility]) Vital Signs (Past 12 Hours) Vital Signs Temp Pulse Pulse Resp BP Pulse Ox 07/12/20 09:46 81 07/12/20 07:20 36.6 C 76 18 178/52 H 95 07/12/20 03:39 37.2 C 66 18 138/64 95 She is awake alert and oriented x3. She is in no acute distress HEENT 2+ carotid upstrokes no evidence of carotid bruits lungs: Globally decreased breath sounds no rales rhonchi or wheezing Abdomen: Soft nontender senna positive bowel sounds Heart: Regular rate and rhythm no appreciable murmurs or rubs Extremities: No clubbing cyanosis or edema 1. Accelerated hypertension 2. Normal biventricular size and function by echo 11/03/2018 with an EF in the range of 55 to 60% 3. Longstanding tobacco abuse 4. History of TIAs 5. Chronic kidney disease with baseline creatinine of 2 6. Paroxysmal atrial fibrillation 7. Negative nuclear stress test May 2016 8. Less than 50% right carotid stenosis and a 50 to 69% left carotid stenosis I reviewed all of her laboratory studies and inpatient records. Her blood pressure has improved slightly with hydralazine added to her medical regimen. Her visual changes have resolved completely at this point. I would increase her hydralazine to 25 mg 3 times daily. She can be discharged home on the rest of her medical regimen I will arrange for follow-up in the office in approximately 2 weeks time. I did discuss if she has any orthostatic symptoms to let us know. She may need higher doses of hydralazine in the future. There is no room to change her losartan to a higher dose of valsartan given her renal dysfunction. Clinically she is not having any heart failure symptoms anginal symptoms TIA or strokelike symptoms.
[2020-07-12] MEDS ORDERED: hydrALAZINE 10 MG TAB PO SCH (14:00)
[2020-07-12] MEDS ORDERED: hydrALAZINE HCL 25 MG TAB PO SCH (14:00)
--- NOTE | 2020-07-12 14:00 | Ultrasound Report ---
RIGHT LOWER EXTREMITY VENOUS DOPPLER CLINICAL HISTORY: RLE > size than LLE; eval DVT COMPARISON STUDY: No previous studies for comparison. TECHNIQUE: Sonography of the deep venous system of the right lower extremity was performed. Compress ion and augmentation were evaluated. FINDINGS: The right common femoral, superficial femoral and popliteal veins were compressible. Augme ntation was normal. Flow was shown within the deep calf vessels. IMPRESSION: No evidence of deep venous thrombus within the right lower extremity. ACT 112: Negative or not required by law. Electronically signed by: Donn Santiago M.D. 07/12/2020 1:59 PM
--- NOTE | 2020-07-12 14:01 | Ultrasound Report ---
LEFT UPPER EXTREMITY VENOUS DOPPLER ULTRASOUND CLINICAL HISTORY: intermittent swelling of LUE; eval DVT COMPARISON STUDY: No previous studies for comparison. FINDINGS: The left internal jugular, subclavian, axillary, brachial, basilic, radial and ulnar veins are patent. No deep venous thrombus is identified within the left upper extremity. IMPRESSION: No deep venous thrombus within the left upper extremity. ACT 112: Negative or not required by law. Electronically signed by: Donn Santiago M.D. 07/12/2020 2:00 PM
--- NOTE | 2020-07-12 15:00 | Discharge Summary ---
Date of Service date of admission - July 11, 2020 date of discharge - July 12, 2020 Admission HPI Per Admitting Provider This is an 84-year-old female with past medical history of hypertension with labile blood pressures, hyperlipidemia, and depression that presents today with hypertension. Patient is pleasant and good historian. Patient tells me she has been essentially asymptomatic today. She woke up earlier this morning. She lives in [place] and drove to [place] to see Dr. Rondon for a routine appointment. When she checked in, her blood pressure was taken multiple times by several of the staff there including Dr. Rondon himself. Her blood pressure was extremely elevated and she was told to present to the emergency room for further evaluation. On presentation here, her blood pressure was documented as high as 221/90 although staff tells me systolic had averaged over 250. Patient denies any symptoms such as chest pain, shortness of breath, palpitation, abdominal pain, vertigo, fever or chills. When questioned further, she did note a very mild headache focused over her right eye. She did also note she was having some mild trouble seeing distances usually not an issue for her. In the emergency room, patient was given hydralazine 5 mg IV as well as 5 mg of Norvasc which is one of her regular medications. At time my evaluation her blood pressure was down to 181 systolic. Patient is now being placed in observation for further management of her blood pressure. Principal Diagnosis Hypertensive Urgency/Accelerated Hypertension Discharge Exam Constitutional + thin; no acute distress and no altered mental status ENMT external ear and nose normal, oropharynx normal Respiratory normal respiratory effort, lungs clear to auscultation Cardiovascular Rate/Rhythm: regular rate and regular rhythm Heart Sounds: normal S1 and normal S2; no murmur Vessels: posterior tibial pulses present and dorsalis pedis pulses present; no JVD Extremities: no edema Gastrointestinal (Abdomen) normal bowel sounds, soft, nontender, no hepatosplenomegaly Musculoskeletal right leg - especially the right calf - is larger than the left leg; patient reports it is chronic. left arm - minimal left hand edema. Psychiatric A+Ox3, euthymic affect Discharge Data Allergies Allergy/AdvReac Type Severity Reaction Status Date / Time codeine AdvReac Unknown Unknown Unverified 07/11/20 13:57 latex AdvReac Unknown Unknown Unverified 07/11/20 13:57 Penicillins AdvReac Unknown Unknown Unverified 07/11/20 13:57 Tetanus Vaccines and Toxoid AdvReac Unknown Unknown Unverified 07/11/20 13:57 Consultations [facility] - Andre Rondon DO Ordered Studies Chest X-Ray 07/11/20 13:01 XR chest 1V portable CLINICAL HISTORY: Chest Pain COMPARISON STUDY: No previous studies for comparison. FINDINGS: No pneumothorax. No pleural effusion. Bilateral lungs are slightly hyperinflated with flattening in the right the left hemidiaphragm. Small atelectasis is seen at the right base. Cardiomediastinal silhouette is within normal limits in size. No significant pulmonary vascular congestion.. Aorta is calcified. Osseous structures: Degenerative changes of the spine. IMPRESSION: 1. Hyperinflated bilateral lungs. 2. Minimal atelectasis at the right base. ACT 112: Negative or not required by law. The above report was generated using voice recognition software. It may contain grammatical, syntax or spelling errors. Electronically signed by: Cheryl Mabry DO 07/11/2020 1:[address] 07/11/20 13:37 CT SCAN OF THE BRAIN WITHOUT IV CONTRAST CLINICAL HISTORY: Hypertension. Headache. COMPARISON STUDY: No priors. TECHNIQUE: Unenhanced axial CT scan of the brain is performed from the vertex to the skull base. A dose lowering technique was utilized adhering to the principles of ALARA. CT DOSE: 525.26 mGycm FINDINGS: Brain parenchyma: There are age-related involutional changes noting mild subcortical and periventricular microangiopathic change. There is no hemorrhage, mass effect, or evidence of acute territorial ischemia by CT criteria. Mineralization is noted in the basal ganglia. 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 Gallegos-white matter differentiation is preserved. No extra-axial fluid collection is seen. Ventricles, sulci, cisterns: Prominent secondary to involutional change. Intracranial vasculature: There is atherosclerotic calcification of the cavernous carotid and vertebral arteries. Calvarium: Unremarkable. Sinuses and mastoids: The visualized paranasal sinuses are clear. There is a moderate right mastoid effusion. The left mastoid air cells are well pneumatized. Orbits: The bony orbits are grossly intact. There are bilateral ocular lens implants. IMPRESSION: There is no hemorrhage, mass effect, or evidence of acute territorial ischemia by CT criteria. ACT 112: Negative or not required by law. Electronically signed by: Dalton Vasquez M.D. 07/11/2020 2:16 PM Extremity Venous Study 07/12/20 12:55 LEFT UPPER EXTREMITY VENOUS DOPPLER ULTRASOUND CLINICAL HISTORY: intermittent swelling of LUE; eval DVT COMPARISON STUDY: No previous studies for comparison. FINDINGS: The left internal jugular, subclavian, axillary, brachial, basilic, radial and ulnar veins are patent. No deep venous thrombus is identified within the left upper extremity. IMPRESSION: No deep venous thrombus within the left upper extremity. ACT 112: Negative or not required by law. Electronically signed by: Donn Santiago M.D. 07/12/2020 2:00 PM Venous Doppler Study 07/12/20 12:55 RIGHT LOWER EXTREMITY VENOUS DOPPLER CLINICAL HISTORY: RLE > size than LLE; eval DVT COMPARISON STUDY: No previous studies for comparison. TECHNIQUE: Sonography of the deep venous system of the right lower extremity was performed. Compression and augmentation were evaluated. FINDINGS: The right common femoral, superficial femoral and popliteal veins were compressible. Augmentation was normal. Flow was shown within the deep calf vessels. IMPRESSION: No evidence of deep venous thrombus within the right lower extremity. ACT 112: Negative or not required by law. Electronically signed by: Donn Santiago M.D. 07/12/2020 1:59 PM Hospital Course (1) Hypertensive urgency: Patient's presenting systolic BP was about 250. She had a minimal amount of visual change and headache at the time of ER presentation. She received several doses of IV hydralazine in the ER with gradual improvement in her blood pressure. Following such she was admitted by the hospitalist team. At time of admission her outpatient regimen of BP medications was simply resumed, and hydralazine 10mg TID was added. By the morning of 07/12/20 her BPs were markedly improved -- readings were nearly all <150. Headache and visual changes resolved. She never had acute CHF. She never had chest pain. She was seen in consult by Dr Andre Rondon, [facility]. He advised ongoing use of the hydralazine in addition to her usual medications. He will see her in the cardiology clinic in [place] in about 2 weeks post- discharge. She was asked to check her BPs twice daily at home and keep a log of these for her PCP & adoption agent. If she continues with [id number] blood pressure consider renal artery dopplers to rule out renal artery stenosis, renin & aldosterone levels, etc. (2) Accelerated hypertension: See above (3) Hypertension: At discharge I recommended split-dosing of her BP medications to try to attain smoother 24-hour control of her blood pressures. She will take her medications as follows -- * Amlodipine 5mg every morning, and 2.5mg nightly * Carvedilol 12.5mg twice daily * Losartan 50mg twice daily * Hydralazine 10mg TID She will f/u with her PCP within 1 week of discharge, and Dr Rondon in about 2 weeks post-discharge. (4) CKD (chronic kidney disease) stage 4, GFR 15-29 ml/min: Baseline creatinine is about 2. Creatinine ranged 1.9 to 2.1 while here. (5) Hyperlipidemia: Continue Crestor 20 mg daily (6) Depression: Continue bupropion 100 mg twice a day (7) Asymptomatic carotid artery stenosis: 50-69% left ICA stenosis Needs ongoing surveillance of this Continue statin Continue asa 81mg daily Needs better BP control Smoking cessation if at all possible (8) Tobacco smoker, 20 cigarettes or fewer per day: Smoking cessation encouraged (9) Chronic interstitial lung disease: (10) Paroxysmal A-fib: No PAF during her hospitalization was seen on telemetry. She does NOT take chronic anticoagulation. Total Time Total Time Spent Total Time Spent (In Minutes): 30 Total Time Includes: Examination of the Patient, Discharge Planning, Medication Reconciliation and Communication With Other Providers Discharge Plan Discharge Items Patient Disposition: Home - Self-Care Reason For Visit: ACCELERATED HYPERTENSION Discharge Diagnosis: Severely elevated blood pressure / hypertension -- improved Activity: As commented below Activity Comment: light activities today, then resume normal activities tomorrow Driving/Machine Use: Resume 1 day after discharge Non-emergency contact: Primary Care Provider Call non-emergency contact if: you have any medication questions and your symptoms worsen Follow-up/Referrals: Eden Cummins MD [Primary Care Provider] - (see Dr Cummins within 5 days for your blood pressure ) Diet: Heart Healthy Addtl Attending Provider Instructions: Ms Ptaterson, You were treated for severely elevated blood pressure during your short stay at [facility]. The blood pressures improved with simply restarting your normal home medications and adding a low-dose of a medication called hydralazine. The hydralazine dose is 10mg three times daily. Most of your blood pressures today have been normal and well-controlled. You were seen by Dr Andre Rondon from [facility] who also agreed with the hydralazine. Finally, your ultrasounds of your right leg and left arm did NOT show a DVT blood clot. Recommendations - 1. start hydralazine 10mg three times daily for your blood pressure, first dose tonight. 2. starting Tuesday, 07/13, please take your other blood pressure medications as below -- * losartan 100mg tablet -- take 1/2 tablet (50mg) twice daily * amlodipine 5mg every morning * amlodipine 2.5mg every evening * carvedilol 12.5mg twice a day 3. check your blood pressure at home twice daily and write those numbers down in a notebook for your family doctor. 4. if the swelling of your left arm continues please speak to your family doctor about this. You may need a CAT scan of the lungs and perhaps other tests. 5. see your family doctor within 5 days. Return to [facility] or any other hospital if - * you have chest pains * you are short of breath * you have severely elevated blood pressures (top number consistently greater than 190) * any other concerns Take good care! -Dr Contreras Pending Studies at Discharge: No Stand-Alone Forms: [facility], Smoking Cessation Medications and DC Order Prescriptions: New hydralazine 10 mg Tablet 10 mg PO TID Qty: 90 RF: 2 Continued carvedilol 12.5 mg tablet 12.5 mg PO BID RF: 0 aspirin 81 mg Tablet,Delayed Release (Dr/Ec) 81 mg PO DAILY RF: 0 bupropion HCl 100 mg tablet sustained-release 12 hr 100 mg PO BID RF: 0 rosuvastatin 20 mg tablet 20 mg PO HS RF: 0 olopatadine 0.2 % drops 1 drp OPB DAILY RF: 0 Changed amlodipine [Norvasc] 2.5 mg tablet 2.5 mg PO HS Qty: 0 RF: 0 amlodipine 5 mg tablet 5 mg PO QAM Qty: 0 RF: 0 losartan 100 mg tablet 50 mg PO BID Qty: 0 RF: 0 Discharge Orders: Discharge Order (Routine); Ordered 07/12/20 Ordered By: Benjamin Contreras Admission Data Admit Date/Time: 07/11/20 17:32 Attending Provider: Benjamin Contreras Admit Provider: Tiago Dial Primary Care Provider: Eden Cummins Other Providers: Tiago Dial ; Andre Rondon Other Interventions: Discharge Summary Assessment (RN) Last Done: 07/12/20 15:23 Coding Level of Care Code 05814 OBS Care - Discharge Diagnoses Hypertensive urgency I16.0 Accelerated hypertension I10 Hypertension I10 CKD (chronic kidney disease) stage 4, GFR 15-29 ml/min N18.4 Hyperlipidemia E78.5 Depression F32.9 Asymptomatic carotid artery stenosis I65.29 Tobacco smoker, 20 cigarettes or fewer per day F17.200 Chronic interstitial lung disease J84.9 Paroxysmal A-fib I48.0
== END 2020-07-12 17:57 | disposition home or self-care (01) ==
LOC: 2S 11:30 → ED 11:30 → SUATTDRO 17:32 → 2S 18:11

== ENCOUNTER 2024-03-16 13:21 | Inpatient (IN) ==
[2024-03-16 15:17] LABS: Basophils # (auto) 0.03 K/uL (0.00-0.20); Basophils % (auto) 0.4 %; Eosinophils # (auto) 0.18 K/uL (0.00-0.50); Eosinophils % (auto) 2.2 %; Hematocrit (blood only) 43.8 % (37.0-47.0); Hemoglobin 14.3 g/dl (12.0-16.0); Immature Granulocytes # (auto) 0.03 K/uL (0.01-0.20); Immature Granulocytes % (auto) 0.4 %; Lymphocytes # (auto) 1.67 K/uL (1.20-3.40); Lymphocytes % (auto) 20.1 %; Mean Corpuscular Hemoglobin 28.8 pg (25.0-34.0); Mean Corpuscular Hgb Conc 32.6 g/dL (32.0-36.0); Mean Corpuscular Volume 88.1 fL (80.0-100.0); Mean Platelet Volume 10.1 fL (9.4-12.4); Monocytes # (auto) 0.41 K/uL (0.11-0.59); Monocytes % (auto) 4.9 %; Neutrophils # (auto) 5.99 K/uL (1.40-6.50); Platelet Count 305 K/uL (130-400); RDW Coefficient of Variation 14.9 % (11.5-14.5); RDW Standard Deviation 48.3 fL (36.4-46.3); Red Blood Count 4.97 M/uL (4.20-5.40); White Blood Count 8.31 K/ul (4.8-10.8)
[2024-03-16 15:26] LABS: Alanine Aminotransferase 16 U/L (7-52); Albumin Globulin Ratio 1.1 (0.9-2); Albumin Level 3.7 gm/dl (3.4-5.0); Alkaline Phosphatase 56 U/L (34-104); Anion Gap 6 (3-11); Aspartate Aminotransferase 19 U/L (13-39); BUN Creatinine Ratio 11.7 (10-20); Bilirubin,Total 0.7 mg/dl (0.2-1.0); Blood Urea Nitrogen 28 mg/dl (6-23); Calcium 9.4 mg/dl (8.6-10.3); Carbon Dioxide 27 mmol/L (21-32); Chloride 105 mmol/L (98-107); Globulin 3.3 gm/dl (2.5-4.0); Glucose 150 mg/dl (70-99(Fasting)); Potassium 4.6 mmol/L (3.5-5.1); Sodium 138 mmol/L (136-145)
[2024-03-16 15:32] LABS: Troponin I High Sensitivity 6.3 pg/ml (0-14)
[2024-03-16 15:39] LABS: INR 1.1 (0.9-1.1); Partial Thromboplastin Time 26 Seconds (21-31); Prothrombin Time 11.4 Seconds (9.0-12.0)
[2024-03-16 16:01] LABS: Adenovirus PCR Not Detected (NotDetected); Bordetella parapertussis PCR Not Detected (NotDetected); Bordetella pertussis PCR Not Detected (NotDetected); Chlamydia pneumoniae PCR Not Detected (NotDetected); Coronavirus 229E PCR Not Detected (NotDetected); Coronavirus CoV-2 (COVID19)PCR Not Detected (NotDetected); Coronavirus HKU1 PCR Not Detected (NotDetected); Coronavirus NL63 PCR Not Detected (NotDetected); Coronavirus OC43PCR Not Detected (NotDetected); Human Metapneumovirus PCR Not Detected (NotDetected); Influenza A PCR Not Detected (NotDetected); Influenza B PCR Not Detected (NotDetected); Mycoplasma pneumoniae PCR Not Detected (NotDetected); Parainfluenza Virus 1 PCR Not Detected (NotDetected); Parainfluenza Virus 2 PCR Not Detected (NotDetected); Parainfluenza Virus 3 PCR Not Detected (NotDetected); Parainfluenza Virus 4 PCR Not Detected (NotDetected); Respiratory Syncytial VirusPCR Not Detected (NotDetected); Rhinovirus/Enterovirus PCR Not Detected (NotDetected)
--- NOTE | 2024-03-16 16:05 | Emergency Department Note ---
Impression & Plan Hypoxia, Acute exacerbation of chronic obstructive pulmonary disease, JAVED (dyspnea on exertion), Bilateral pleural effusion, Paige's cyst ED Provider Note NAME: DIEGO DE LEÓN AGE: 88 SEX: F : 1935 ARRIVES VIA: Walk-In INFORMANT: Patient, son ED PROVIDER(S): Skip Arora MD CHIEF COMPLAINT: Shortness of breath, outpatient referral MEDICAL DECISION MAKING: Patient presents to concern for shortness of breath. IV was established and blood work is obtained. Patient with a normal white count hemoglobin and platelet count patient's kidney function with creatinine 2.39. Function is chronic and baseline. BNP is not elevated troponin not elevated. BioFire negative. Patient's chest x-ray does show right-sided pleural effusion. Patient was ordered DuoNeb treatment methylprednisolone as well as IV Lasix 20 mg. As the patient did have exertional hypoxia I did speak with the on-call hospital service Dr. Navarro and the patient was admitted to the medicine service. DVT ultrasound did not show any evidence of DVT. Likely Paige's cyst noted. After discussion with the hospitalist they had requested CT of the chest noncontrast which is ordered and pending at the time of admission Discussion w/ other healthcare providers: Dr. Navarro inpatient medicine service Prior /Outside records reviewed: I reviewed part of a nephrology visit from Dr. Carpenter from February 17 known history of CKD stage IV hypertension PVD. Also history of longstanding continued tobacco use Differential diagnosis: Reactive airway disease, pneumonia, pneumothorax, COPD, CHF, ACS, pulmonary embolism, musculoskeletal, GERD as well as other pathologies were considered. Diagnostics, as interpreted by me: ECG: Likely sinus, rate of 75, normal intervals, normal axis no obvious ST elevations. Cardiac monitoring: An order was placed for continuous cardiac monitoring. The monitor shows a rate of 77 with sinus rhythm. Patient was placed on pulse oximetry Medical decision rules: None Imaging studies: I informally interpreted the patient's chest x-ray does show right-sided pleural effusion which appears worse from comparison chest x-ray from last month with formal report to follow. HPI: Patient presents as a referral from her outpatient providers office due to concerns for possible CHF or blood clots as the patient has had worsening shortness of breath and was noted to be hypoxic in the clinic with exertional hypoxia to 87%. The patient is a former smoker last moving October. The patient states that she does have a chronic cough with some occasional productive sputum but states that is primarily clear. Patient states that she does have some postnasal drainage and feels as though it is in her chest. Patient states that the shortness of breath is gotten worse over the last month. Patient denies any chest pains. The patient denies any nausea or vomiting. The patient reports that she does have a remote history of a pericardial effusion. Patient also states that she has had some worsening right greater than left lower extremity swelling which seem to be more apparent today but thought it was secondary to having her legs hanging down. Patient denies any prior history of DVT or PE. No known sick contacts or recent travel. Patient denies any falls or trauma. Patient does have significant shortness of breath with exertion which is gotten progressively worse. Mild orthopnea. PAST MEDICAL HISTORY: See Below PAST SURGICAL HISTORY: See Below SOCIAL HISTORY: See Below HOME MEDICATIONS: See Below ALLERGIES: See Below VITALS: See Below PHYSICAL EXAMINATION: GENERAL: NAD, non-toxic. EYE EXAM: Normal conjunctiva. PERRL, no anisocoria and EOM's grossly intact w/o pain. OROPHARYNX: Moist mucus membranes, grossly normal dentition. NECK: Trachea midline, no stridor. LUNGS: Decreased breath sounds right base with associated bibasilar crackles. Normal chest wall mechanics. HEART: NSR, no MRG. ABDOMEN: Abdomen soft, non-tender, no masses, no rebound or guarding. BACK: No CVA TTP. SKIN: No rashes and no bruising. UPPER EXTREMITIES: Upper extremities are grossly normal. LOWER EXTREMITIES: Grossly normal, right greater than left lower extremity edema without calf pain. No significant erythema or calor. NEURO EXAM: A&O x3, cranial nerves II-XII grossly intact, normal speech, moves all 4 extremities. Past Med/Surg History Problem List (Updated 03/17/24 @ 00:04 by Skip Arora MD) Paige's cyst (Acute) Bilateral pleural effusion (Acute) JAVED (dyspnea on exertion) (Acute) Acute exacerbation of chronic obstructive pulmonary disease (Acute) Hypoxia (Acute) Edema of right lower extremity Pleural effusion Vitamin D deficiency Chronic kidney disease, stage 4 (severe) Peripheral vascular disease Accelerated hypertension Hypertensive urgency Paroxysmal A-fib Hypertension (Acute) Headache (Acute) Visual changes (Acute) Asymptomatic carotid artery stenosis Sacroiliac dysfunction Tobacco smoker, 20 cigarettes or fewer per day (Acute) Chronic interstitial lung disease Atrial fibrillation Microscopic hematuria Memory impairment (Acute) Lupus (systemic lupus erythematosus) Medical History CKD (chronic kidney disease) stage 4, GFR 15-29 ml/min Depression TIA (transient ischemic attack) Hyperlipidemia Hypertension Surgical History H/O sinus surgery H/O excision of lamina of cervical vertebra for decompression of spinal cord Social History Smoking Status: Former smoker Tobacco Type: Cigarettes Cigarettes Per Day: 5-8; Do You Dip or Chew Tobacco: No; Hx Alcohol Use: No Hx Substance Use: No Preferred Language: Turkmen Communication Ability: Effective Founder President And Ceo Required: No Beliefs That Will Affect Care: None marital status: / Current Living Situation: Alone Current Living Situation Comment: elderly apartment complex current occupational status: retired Other Information That Helps Us Care for You: No Feels Safe at Home: Yes Safety Concerns: Feels Safe At This Time Assistive Devices: Glasses Allergies Allergies Allergy/AdvReac Type Severity Reaction Status Date / Time hydralazine Allergy Verified 03/16/24 17:53 codeine AdvReac Unknown Unknown Unverified 03/16/24 17:53 latex AdvReac Unknown Unknown Unverified 03/16/24 17:53 Penicillins AdvReac Unknown Unknown Unverified 03/16/24 17:53 Tetanus Vaccines and Toxoid AdvReac Unknown Unknown Unverified 03/16/24 17:53 Home Meds Home Medications Medication Instructions Recorded Confirmed bupropion HCl 100 mg tablet,12 hr 100 mg PO BID 07/11/20 03/16/24 sustained-release rosuvastatin 20 mg tablet 20 mg PO HS 07/11/20 03/16/24 losartan 50 mg tablet 50 mg PO BID 11/20/20 03/16/24 psyllium [Metamucil (sugar)] PO DAILY 11/20/20 08/22/23 tramadol 50 mg tablet 50 mg PO DAILY PRN Pain 07/21/21 03/16/24 carvedilol 12.5 mg tablet 25 mg PO BID 01/25/22 03/16/24 aflibercept [Eylea HD] intravitreal Q5W 02/09/23 08/22/23 aspirin 81 mg tablet,delayed 81 mg PO BID 08/22/23 03/16/24 release famotidine 20 mg tablet 20 mg PO DAILY 08/22/23 03/16/24 Results & Data (ED) Vital Signs Vital Signs - 24 hr 03/16/24 13:35 03/16/24 13:40 03/16/24 15:52 Temperature 36.1 C L Temperature Source Temporal Artery Scan Pulse Rate 83 Pulse Rate [Apical] 74 Respiratory Rate 18 19 Respiratory Effort / Characteristics Non-Labored Spontaneous Non-Labored Spontaneous Respiratory Depth Normal Normal Respiratory Pattern Regular Blood Pressure 117/77 Blood Pressure [Right Arm] 186/77 H Blood Pressure Mean 90 Blood Pressure Mean [Right Arm] 113 Blood Pressure Position [Right Arm] Semi-fowlers Pulse Oximetry 96 96 98 Oxygen Delivery Method Room Air Room Air Room Air Oxygen Flow Rate 0 Sepsis Recent Fever Within 48 Hours No Sepsis New/Unexplained Change in Mental Status N/A Sepsis Action Taken by Nursing No Action Required 03/16/24 15:52 03/16/24 15:52 03/16/24 17:00 Temperature Temperature Source Pulse Rate 74 Pulse Rate [Apical] 68 Respiratory Rate 19 20 Respiratory Effort / Characteristics Non-Labored Spontaneous Respiratory Depth Normal Respiratory Pattern Blood Pressure Blood Pressure [Right Arm] 172/70 H Blood Pressure Mean Blood Pressure Mean [Right Arm] 104 Blood Pressure Position [Right Arm] Semi-fowlers Pulse Oximetry 98 98 100 Oxygen Delivery Method Room Air Room Air Room Air Oxygen Flow Rate Sepsis Recent Fever Within 48 Hours Sepsis New/Unexplained Change in Mental Status Sepsis Action Taken by Shelter Medications Current Medication List: was personally reviewed by me Laboratory Data Attestation: I reviewed the patient's lab results. 03/16/24 14:53 03/16/24 14:53 Lab Results 03/16/24 Range/Units 14:53 WBC 8.31 (4.8-10.8) K/ul RBC 4.97 (4.20-5.40) M/uL Hgb 14.3 (12.0-16.0) g/dl Hct 43.8 (37.0-47.0) % MCV 88.1 (80.0-100.0) fL MCH 28.8 (25.0-34.0) pg MCHC 32.6 (32.0-36.0) g/dL RDW Std Deviation 48.3 H (36.4-46.3) fL RDW Coeff of Gabriela 14.9 H (11.5-14.5) % Plt Count 305 (130-400) K/uL MPV 10.1 (9.4-12.4) fL Immature Gran % (Auto) 0.4 % Neut % (Auto) 72.0 % Lymph % (Auto) 20.1 % Rooks % (Auto) 4.9 % Eos % (Auto) 2.2 % Baso % (Auto) 0.4 % Neut # (Auto) 5.99 (1.40-6.50) K/uL Lymph # (Auto) 1.67 (1.20-3.40) K/uL Rooks # (Auto) 0.41 (0.11-0.59) K/uL Eos # (Auto) 0.18 (0.00-0.50) K/uL Baso # (Auto) 0.03 (0.00-0.20) K/uL Immature Gran # (Auto) 0.03 (0.01-0.20) K/uL PT 11.4 (9.0-12.0) Seconds INR 1.1 (0.9-1.1) APTT 26 (21-31) Seconds PTT Ratio 1.0 Sodium 138 (136-145) mmol/L Potassium 4.6 (3.5-5.1) mmol/L Chloride 105 (98-107) mmol/L Carbon Dioxide 27 (21-32) mmol/L Anion Gap 6 (3-11) BUN 28 H (6-23) mg/dl Creatinine 2.39 H (0.6-1.2) mg/dl Est Cr Clr Drug Dosing Not Reportable eGFR 19.29 BUN/Creatinine Ratio 11.7 (10-20) Glucose 150 H (70-99(Fasting)) mg/dl Calcium 9.4 (8.6-10.3) mg/dl Total Bilirubin 0.7 (0.2-1.0) mg/dl AST 19 (13-39) U/L ALT 16 (7-52) U/L Alkaline Phosphatase 56 (34-104) U/L Troponin I High Sens 6.3 (0-14) pg/ml B-Natriuretic Peptide 90 (0-100) pg/ml Total Protein 7.0 (6.0-8.3) gm/dl Albumin 3.7 (3.4-5.0) gm/dl Globulin 3.3 (2.5-4.0) gm/dl Albumin/Globulin Ratio 1.1 (0.9-2) Adenovirus (PCR) Not Detected (NotDetected) B. pertussis DNA (PCR) Not Detected (NotDetected) B.parapertussis DNA PCR Not Detected (NotDetected) C. pneumoniae DNA (PCR) Not Detected (NotDetected) Coronavirus OC43 (PCR) Not Detected (NotDetected) Coronavirus HKU1 (PCR) Not Detected (NotDetected) Coronavirus 229E (PCR) Not Detected (NotDetected) SARS-CoV-2 (PCR) Not Detected (NotDetected) Coronavirus NL63 (PCR) Not Detected (NotDetected) Human Metapneumovir PCR Not Detected (NotDetected) Influenza Type A (PCR) Not Detected (NotDetected) Influenza Type B (PCR) Not Detected (NotDetected) M. pneumoniae (PCR) Not Detected (NotDetected) Parainfluenza 1 (PCR) Not Detected (NotDetected) Parainfluenza 2 (PCR) Not Detected (NotDetected) Parainfluenza 3 (PCR) Not Detected (NotDetected) Parainfluenza 4 (PCR) Not Detected (NotDetected) RSV (PCR) Not Detected (NotDetected) Entero/Rhino (PCR) Not Detected (NotDetected) Administered Medications Aspirin (Aspirin 81 Mg Ectab) 81 mg PO BID [facility] Stop: 04/15/24 21:20 Last Admin: 03/16/24 21:59 Dose: 81 mg Documented By: CINTIA Bupropion HCl (Bupropion Sr 100 Mg Tabcr) 100 mg PO BID [facility] Stop: 04/15/24 21:20 Last Admin: 03/16/24 21:59 Dose: 100 mg Documented By: CINTIA Carvedilol (Carvedilol 25 Mg Tab) 25 mg PO BID [facility] Stop: 04/15/24 21:20 Last Admin: 03/16/24 21:59 Dose: 25 mg Documented By: CINTIA Losartan Potassium (Losartan Potassium 50 Mg Tab) 50 mg PO BID [facility] Stop: 04/15/24 21:20 Last Admin: 03/16/24 21:59 Dose: 50 mg Documented By: CINTIA Rosuvastatin Calcium (Rosuvastatin Calcium 20 Mg Tab) 20 mg PO HS [facility] Stop: 04/15/24 21:20 Last Admin: 03/16/24 21:59 Dose: 20 mg Documented By: CINTIA Discontinued Medications Albuterol (Albut/Ipratrop 3mg/0.5mg Neb 3 Ml Vial) 3 ml NEB NOW STA; Protocol Stop: 03/16/24 16:23 Last Admin: 03/16/24 16:50 Dose: 3 ml Documented By: MMF Furosemide (Furosemide Inj 20 Mg/2 Ml Vial) 20 mg IV ONE ONE Stop: 03/16/24 16:23 Last Admin: 03/16/24 16:50 Dose: 20 mg Documented By: MMF Methylprednisolone (Methylprednisolone 125 Mg/2 Ml Vial) 125 mg IV NOW STA Stop: 03/16/24 16:23 Last Admin: 03/16/24 16:50 Dose: 125 mg Documented By: MMF Imaging Data Radiologist's Impression: Chest X-Ray 03/16/24 13:40 XR chest 1V not portable CLINICAL HISTORY: Chest pain, nonspecific COMPARISON STUDY: 02/10/2024 FINDINGS: There is stable cardiomegaly without pulmonary vascular congestion. There are stable bilateral pleural effusions and associated lung base consolidation, right greater than left. No pneumothorax. IMPRESSION: Stable bilateral pleural effusions and associated lung base consolidation. ACT 112: Negative or not required by law. Electronically signed by: Ward Ellison M.D. 03/16/2024 4:06 PM Venous Doppler Study 03/16/24 16:22 Examination: Doppler venous ultrasound of the lower extremity Comparison: None Technique: Grayscale evaluation with compression, spectral flow, and color Doppler assessment of the deep venous system of the leg, from the groin to the knee, as well as the lower leg Findings: The external iliac, common femoral, femoral, popliteal, peroneal, anterior and posterior tibial veins demonstrate normal compressibility and blood flow. Impression: No evidence for DVT of the right lower extremity. Anechoic fluid collection at the popliteal fossa measuring 5.4 x 1.0 x 2.7 cm compatible with a Bakers cyst. Electronically signed by Vincent Amaro 03-16-2024 6:[address] 03/16/24 16:55 CT chest without contrast History: Shortness of breath Comparison: None Technique: Helical CT imaging of the chest performed without IV contrast Dose reduction techniques were achieved by using automatic exposure control and/or adjustment of mA and/or kV according to patient size and/or use of iterative reconstruction technique. Findings: No focal consolidation. Bibasilar compressive atelectasis. Moderate to large bilateral pleural effusion. No pneumothorax. Heart size is normal. The thoracic aorta is normal in size. Heavy calcifications of the thoracic aortic arch and descending aorta. Heavy coronary calcifications. The pulmonary artery is normal in size. No significant pericardial effusion. No suspicious lymphadenopathy in the chest. The central airway is clear. Limited visualized upper abdomen. No acute bony abnormalities. Impression: Moderate to large bilateral pleural effusions, associated with subjacent compressive atelectasis. Electronically signed by Vincent Amaro 03-16-2024 6:28 PM Discharge Plan Visit Data Chief Complaint: Shortness of Breath/Dyspnea Stated Complaint: SOB ED Provider: Skip Arora Discharge Problem: Hypoxia, Acute exacerbation of chronic obstructive pulmonary disease, JAVED (dyspnea on exertion), Bilateral pleural effusion, Paige's cyst Patient Disposition: Admitted As Inpatient Discharge Instructions Interventions: ED Discharge Assessment Last Done: 03/16/24 20:42 Discharge Problem: Paige's cyst Qualifiers: Laterality: right Qualified Code(s): M71.21 - Synovial cyst of popliteal space [Grecia], right knee
--- NOTE | 2024-03-16 16:07 | XRay Report ---
XR chest 1V not portable CLINICAL HISTORY: Chest pain, nonspecific COMPARISON STUDY: 02/10/2024 FINDINGS: There is stable cardiomegaly without pulmonary vascular congestion. There are stable bilate ral pleural effusions and associated lung base consolidation, right greater than left. No pneumothora x. IMPRESSION: Stable bilateral pleural effusions and associated lung base consolidation. ACT 112: Negative or not required by law. Electronically signed by: Ward Ellison M.D. 03/16/2024 4:06 PM
[2024-03-16] MEDS: ALBUT/IPRATROP 3MG/0.5MG NEB 3 ML VIAL NEB STA (16:50)
[2024-03-16] MEDS: FUROSEMIDE INJ 20 MG/2 ML VIAL IV ONE (16:50)
[2024-03-16] MEDS: methylPREDNISolone 125 MG/2 ML VIAL IV STA (16:50)
--- NOTE | 2024-03-16 17:06 | History & Physical Report ---
Date of Service March 16, 2024 Assessment & Plan (1) Pleural effusion: (2) Edema of right lower extremity: Plan Vero is an 88-year-old female with PMH of lupus, tobacco use, TIAs, paroxysmal atrial fibrillation, HTN, and CKD stage IV. She presented on 03/16 at the behest of her PCP for progressive worsening of SOB/dyspnea. Patient believes that her symptoms originally started in December. She came to the ED on February 09, and had a workup done, but it was unremarkable. Since that time, her SOB with exertion has worsened, and she does occasionally feel SOB at rest. She also endorses wheezing, productive cough (clear sputum production), and orthopnea. #Pleural effusions BioFire negative No leukocytosis; afebrile CXR revealed bilateral pleural effusions and associated lung base consolidation Chest CT Noncon ordered, pending Patient does have extensive tobacco use history; former tobacco cigarette smoker but quit in October 2023 If concern for malignancy/exudative effusion, will consult pulmonology #RLE edema Edema in the lower extremities bilaterally, but R>L RLE Doppler without evidence of acute DVT While BNP is WNL on arrival, CHF remains within the differential Pending chest CT Noncon results, would consider echocardiogram/Lasix as next step Strict I&O monitoring for now Daily weights Chronic stable conditions: #HTN-carvedilol, losartan #HLDrosuvastatin #GERDfamotidine Disposition: Admit to MedSurg telemetry Full code Heart healthy diet VTE PPx: Teds; continue aspirin BID History of Present Illness Chief Complaint: SOB/dyspnea Primary Care Provider: Eden Cummins MD Vero is an 88-year-old female with PMH of lupus, tobacco use, TIAs, paroxysmal atrial fibrillation, HTN, and CKD stage IV. She presented on 03/16 at the behest of her PCP for progressive worsening of SOB/dyspnea. Patient believes that her symptoms originally started in December. She came to the ED on February 09, and had a workup done, but it was unremarkable. Since that time, her SOB with exertion has worsened, and she does occasionally feel SOB at rest. She also endorses wheezing, productive cough (clear sputum production), and orthopnea. Patient sleeps in the recliner. Patient lives by herself, and ambulates with a walker at baseline. No sick contacts. She manages her own medicine at home. She reports she took her regular morning medicine today, and her only recent change is that she was taken off of amlodipine recently. No recent change in diet. She reports that she watches her salt intake at home. Additionally, her right leg is increasingly swollen today, but she thinks it might have been from the way she was sitting. No prior history of DVT/PE. She does not have a prior history of heart failure, and is not currently on diuretics. Patient reports that her SpO2 has been dropping to 87% with activity. Patient is a former tobacco cigarette smoker, but quit in October 2023. She denies any recent alcohol use. Patient is hypertensive at 172/70 at time of admission; vitals otherwise stable. ED course: DuoNeb 3 mL Solu-Medrol 125 mg IV Furosemide 20 mg IV ROS: Patient endorses lightheadedness when walking, progressive SOB at rest and with exertion, productive cough (clear sputum production), orthopnea, intermittent wheezing, conversational dyspnea, BELTRAN, "stitch" under the right breast, Patient denies fever, chills, night-sweats, syncope, recent falls, chest pain, chest palpitations, pleuritic CP, hemoptysis, or abdominal pain. Allergies Allergy/AdvReac Type Severity Reaction Status Date / Time hydralazine Allergy Verified 03/16/24 17:53 codeine AdvReac Unknown Unknown Unverified 03/16/24 17:53 latex AdvReac Unknown Unknown Unverified 03/16/24 17:53 Penicillins AdvReac Unknown Unknown Unverified 03/16/24 17:53 Tetanus Vaccines and Toxoid AdvReac Unknown Unknown Unverified 03/16/24 17:53 Home Medications Medication Instructions Recorded Confirmed Type bupropion HCl 100 mg tablet,12 hr 100 mg PO BID 07/11/20 03/16/24 History sustained-release rosuvastatin 20 mg tablet 20 mg PO HS 07/11/20 03/16/24 History losartan 50 mg tablet 50 mg PO BID 11/20/20 03/16/24 History psyllium [Metamucil (sugar)] PO DAILY 11/20/20 08/22/23 History tramadol 50 mg tablet 50 mg PO DAILY PRN Pain 07/21/21 03/16/24 History carvedilol 12.5 mg tablet 25 mg PO BID 01/25/22 03/16/24 History aflibercept [Eylea HD] intravitreal Q5W 02/09/23 08/22/23 History aspirin 81 mg tablet,delayed 81 mg PO BID 08/22/23 03/16/24 History release famotidine 20 mg tablet 20 mg PO DAILY 08/22/23 03/16/24 History Past Med/Surg History Problem List (Updated 03/16/24 @ 19:21 by Armani Kaye PA-C) Edema of right lower extremity Pleural effusion Vitamin D deficiency Chronic kidney disease, stage 4 (severe) Peripheral vascular disease Accelerated hypertension Hypertensive urgency Paroxysmal A-fib Hypertension (Acute) Headache (Acute) Visual changes (Acute) Asymptomatic carotid artery stenosis Sacroiliac dysfunction Tobacco smoker, 20 cigarettes or fewer per day (Acute) Chronic interstitial lung disease Atrial fibrillation Microscopic hematuria Memory impairment (Acute) Lupus (systemic lupus erythematosus) Medical History CKD (chronic kidney disease) stage 4, GFR 15-29 ml/min Depression TIA (transient ischemic attack) Hyperlipidemia Hypertension Surgical History H/O sinus surgery H/O excision of lamina of cervical vertebra for decompression of spinal cord Social History Smoking Status: Former smoker Tobacco Type: Cigarettes Cigarettes Per Day: 5-8; Do You Dip or Chew Tobacco: No; Hx Alcohol Use: Yes Hx Substance Use: No Preferred Language: Slovenian Communication Ability: Effective Automatic Buffer Required: No Beliefs That Will Affect Care: Protestant Protestant Beliefs: Amish marital status: / Current Living Situation: Alone Current Living Situation Comment: elderly apartment complex current occupational status: retired Feels Safe at Home: Yes Assistive Devices: None Review of Systems Review of Systems: See HPI above Physical Exam Physical Exam: General: no acute distress; pleasant affect; purple hair; son-in-law (Johnny) at bedside; non-toxic; frail appearing; cooperative; SpO2 100% on RA HEENT: normocephalic, atraumatic; no scleral icterus; PERRLA; vision and hearing grossly intact Neck: supple; negative JVD; trachea midline Skin: warm, dry without signs of tenting; no cyanosis; no rashes, bruising, lesions, or erythema noted CV: chest wall NTP; RRR; S1/S2 normal; no murmurs/rubs/gallops; pulses intact and symmetric at radial, DP, and PT Lungs: no acute respiratory distress, but patient may exhibit mild co nversational dyspnea; occasional wet/hacking cough with deep breaths; symmetrical chest wall expansion; mild expiratory wheeze auscultated in lower lung borden bilaterally ABD: Soft, NTP; BS present; no rebound/guarding; no distention MSK: no tics or fasciculations; +1 pitting edema in the lower EXTR bilaterally, and patient's right lower extremity is much swollen around the ankle when compared to the left Neuro: A&Ox3; normal mood and affect; fluent speech; no focal deficits; sensation grossly intact and symmetric in the LEs b/l Results & Data Results & Data Vital Signs (Past 12 Hours) Vital Signs Temp Pulse Pulse Resp BP BP Pulse Ox 03/16/24 17:00 68 20 172/70 H 100 03/16/24 15:52 74 19 98 03/16/24 15:52 98 03/16/24 15:52 74 19 186/77 H 98 03/16/24 13:40 96 03/16/24 13:35 36.1 C L 83 18 117/77 96 O2 Del Method O2 Flow Rate 03/16/24 17:00 Room Air 03/16/24 15:52 Room Air 03/16/24 15:52 Room Air 03/16/24 15:52 Room Air 03/16/24 13:40 Room Air 0 03/16/24 13:35 Room Air Laboratory Results Abnormal lab results 03/16/24 Range/Units 14:53 RDW Std Deviation 48.3 H (36.4-46.3) fL RDW Coeff of Gabriela 14.9 H (11.5-14.5) % BUN 28 H (6-23) mg/dl Creatinine 2.39 H (0.6-1.2) mg/dl Glucose 150 H (70-99(Fasting)) mg/dl Diagnostic Findings Chest X-Ray 03/16/24 13:40 XR chest 1V not portable CLINICAL HISTORY: Chest pain, nonspecific COMPARISON STUDY: 02/10/2024 FINDINGS: There is stable cardiomegaly without pulmonary vascular congestion. There are stable bilateral pleural effusions and associated lung base consolidation, right greater than left. No pneumothorax. IMPRESSION: Stable bilateral pleural effusions and associated lung base consolidation. ACT 112: Negative or not required by law. Electronically signed by: Ward Ellison M.D. 03/16/2024 4:06 PM Code Status & VTE Plan Code Status Full code VTE Prophylaxis Plan VTE Prophylaxis will be ordered: Yes Supervising Physician Co-Signing Physician Notes Patient seen and examined, chart reviewed, case discussed with Armani Kaye PA-C and I agree with the assessment and plan as above except as otherwise noted Labs and images reviewed 88-year-old female presents to the ER with progressive dyspnea on exertion. She has a prior history of ILD and tobacco use. Patient was a former smoker for many decades between quarter pack and a pack per day. Does have some R>L leg swelling. CTA is limited by renal dysfunction. She is not tachycardic or hypoxic. Chest x-ray does show evidence of bilateral right greater than left effusion. There is not associated pulmonary vascular congestion or pulmonary edema and BNP is not elevated. BioFire is negative and there is no leukocytosis. Patient is afebrile. Right greater than left pleural effusions ? Malignant. Extensive tobacco history, significant effusion without pulmonary edema/vascular congestion or elevated BNP. CT Noncon pending Will follow with pulmonary for possible diagnostic/therapeutic right thoracentesis DDx includes CHF although she does not have a history of this, does not have JVD, worsening pulmonary edema. No significant left-sided edema but does have new right sided leg edema that just began today/yesterday. Her shortness of breath has preceded this by 2 months. If when she was present tribute increased risk of VTE, venous Doppler pending Will defer diuresis at this time Until above assessment is complete, and then if further evaluation is suggestive more of a diastolic CHF picture will resume Lasix at that time. Agree with above PG Care Time/CCT Total # of Minutes Spent Total Time Spent with Patient: Total time spent is greater than 50% in coordination of care (as documented) at patient's floor/unit and/or counseling patient: Coding [place] [address] INT INP/OBS CARE 3/75MIN Patient Type Established History Comprehensive Exam Comprehensive Medical Decision Making High Complexity Diagnoses Pleural effusion J90 Edema of right lower extremity R60.0
--- NOTE | 2024-03-16 18:28 | CT Scan Report ---
CT chest without contrast History: Shortness of breath Comparison: None Technique: Helical CT imaging of the chest performed without IV contrast Dose reduction techniques were achieved by using automatic exposure control and/or adjustment of mA and/or kV according to patient size and/or use of iterative reconstruction technique. Findings: No focal consolidation. Bibasilar compressive atelectasis. Moderate to large bilateral pleural effusion. No pneumothorax. Heart size is normal. The thoracic aorta is normal in size. Heavy calcifications of the thoracic aortic arch and descending aorta. Heavy coronary calcifications. The pulmonary artery is normal in size. No significant pericardial effusion. No suspicious lymphadenopathy in the chest. The central airway is clear. Limited visualized upper abdomen. No acute bony abnormalities. Impression: Moderate to large bilateral pleural effusions, associated with subjacent compressive atelectasis. Electronically signed by Vincent Amaro 03-16-2024 6:28 PM
--- NOTE | 2024-03-16 18:50 | Ultrasound Report ---
Examination: Doppler venous ultrasound of the lower extremity Comparison: None Technique: Grayscale evaluation with compression, spectral flow, and color Doppler assessment of the deep venous system of the leg, from the groin to the knee, as well as the lower leg Findings: The external iliac, common femoral, femoral, popliteal, peroneal, anterior and posterior tibial veins demonstrate normal compressibility and blood flow. Impression: No evidence for DVT of the right lower extremity. Anechoic fluid collection at the popliteal fossa measuring 5.4 x 1.0 x 2.7 cm compatible with a Bakers cyst. Electronically signed by Vincent Amaro 03-16-2024 6:50 PM
[2024-03-16] MEDS ORDERED: ONDANSETRON INJ 2 MG/ML 2 ML VIAL IV PRN (21:21)
[2024-03-16] MEDS ORDERED: traMADol HCL 50 MG TABLET PO PRN (21:21)
[2024-03-16] MEDS: ASPIRIN 81 MG ECTAB PO SCH (21:59)
[2024-03-16] MEDS: ROSUVASTATIN CALCIUM 20 MG TAB PO SCH (21:59)
[2024-03-16] MEDS: LOSARTAN POTASSIUM 50 MG TAB PO SCH (21:59)
[2024-03-16] MEDS: carvediloL 25 MG TAB PO SCH (21:59)
[2024-03-16] MEDS: buPROPion SR 100 MG TABCR PO SCH (21:59)
--- OUTSIDE RECORDS SUMMARY | 2024-03-16 23:15 | External Medical Summary | Continuity of Care Document ---
Author Name Unknown Organization [facility] [address] [facility] Address [address] [place], [place] [id number] Care Team Providers Care Malt Loader Name Role Phone Talita Cummins Pacheco Primary Care Physician [phone] Encounter [facility] DMITRYPEARLR [id number] Date(s): 03/08/24 - 03/08/24 [facility] [address] [place] [address] [phone] Encounter Diagnosis Bilateral carotid artery stenosis(Discharge Diagnosis) - 03/08/24 Renal artery stenosis(Discharge Diagnosis) - 03/08/24 Discharge Disposition: Home or Self Care Attending Physician: MD Koch Eugene J Allergies, Adverse Reactions, Alerts Substance Criticality Severity Reaction Reaction Severity Status codeine Active hydrALAZINE lupus like syndrome Active tetanus toxoid unknown Activ e Latex Active PCN (penicillin) Act meghana Assessment and Plan Extracted from: Title:Clinical Document Author:KIA Jewell Lynn Date:03/08/24 [facility] OUTPATIENT NOTE Name: DIEGO PATTERSON Patient Number: [id number] : 1935 Date of Service: 03/08/2024 Chief Complaint: _Follow-up for carotid stenosis HPI: _Mrs. Patterson is an elderly female who presents to Dr. Koch's vascular surgery clinic today for a 6-month follow-up visit regarding her history of carotid stenosis. As you may remember, patient is followed regularly for her carotid stenosis as well as renal artery stenosis. Patient states that she has been lightheaded recently having some low blood pressures at home. She denies any symptoms of cerebrovascular insufficiency otherwise, including amaurosis, unilateral extremity weakness numbness or tingling, difficulty speaking or swallowing, facial droop, sudden onset confusion. She states that her renal function has worsened slightly over the last year or so, but she has not been advised that she will require dialysis anytime soon. Her carotid ultrasound performed prior to today's appointment continues to demonstrate 70% stenosis of the left ICA, and no significant stenosis in the right ICA. She also has no significant stenosis in her subclavian arteries and antegrade flow in her vertebrals. Current Home Meds: (Last Updated 03/08 10:53) acetaminophen (Tylenol Arthritis Extended Release) 650 mg PO bid amLODIPine (amLODIPine 2.5 mg oral tablet) 1 tab PO Daily aspirin (aspirin 81 mg oral delayed release tablet) 81 mg PO Daily buPROPion (buPROPion 100 mg oral tablet) 150 mg PO bid carvedilol (carvedilol 25 mg oral tablet) 25 mg PO bid famotidine (Pepcid 20 mg oral tablet) 20 mg PO bid losartan (losartan 50 mg oral tablet) 50 mg PO bid psyllium (Metamucil 3.4 g/5.2 g oral powder for reconstitution) rosuvastatin (rosuvastatin 20 mg oral tablet) TAKE ONE TABLET BY MOUTH AT BEDTIME traMADol 50 mg PO q4h Allergies and Sensitivities: hydrALAZINE(lupus like syndrome) tetanus toxoid(unknown) Latex codeine PCN (penicillin) Past Medical History: Problems: Bilateral carotid artery stenosis Carotid artery stenosis GERD with apnea Renal artery occlusion CKD (chronic kidney disease), stage IV HTN (hypertension) Renal artery stenosis Tobacco user OBJECTIVE Vitals: Last Updated 03/08/24 10:58 Date Temp BP Location Pulse RR SpO2 Pain 03/08/24 86/48 Right Arm 03/08/24 90/50 Left Arm 70 96 0 08/24/23 150/62 Right Arm Vital Signs are the last 3 documented. No Orthostatic Data Available Height and Weight: Last Updated 08/24/23 08:40 Date BMI Wt(kg) Wt(lb) Method Ht(cm) (ft-in) Method 08/24/23 52 114 Standing Scale 01/19/23 52 114 Standing Scale 05/28/22 54.1 119 Standing Scale Heights and Weights are the last 3 documented. Physical Exam Constitutional: In general patient is a frail elderly female in no distress. She is alert and oriented for deficits. Her carotids do not demonstrate a bruit. Her heart is regular, lungs are decreased throughout but clear. Radial and brachial pulses are +3. The remainder of her exam was deferred by the patient she did not wish to move to the examining table. ASSESSMENT: _ PLAN: _ 1 ) _carotid stenosis Patient is followed regularly for carotid stenosis, and remains asymptomatic. We will have her return here in another 6 months for reevaluation with a new carotid ultrasound prior to that office visit. 2 ) _renal artery stenosis Patient does have a known right renal artery occlusion and left renal artery stenosis, with a mild decline of her renal function, but also with well- controlled blood pressures. At this point we have no plans for renal artery intervention, we will continue to monitor this with a renal artery ultrasound when she returns here in 6 months. Patient is agreeable this plan. She will call any other questions. She will also follow-up with her primary care physician regarding her blood pressure medications. Thank you for letting us participate in the care of this patient. I have personally spent_24__ minutes performing [id number] and lso-[id number]-xp-face activities on this date of service.Time does not include separately reported services. Activities Include: _x_ review of the medical record _x_ obtaining a history _x_ physical exam/evaluation __ review labs _x_ review radiology reports _x_ counseling/educating patient/family/caregiver __ discussion/referral to other healthcare professional _x_ documenting care in the medical record __ independent interpretation of results _x_ communication of results to patient/family/caregiver _x_ coordination of care Medications amLODIPine 2.5 mg oral tablet Start: 03/06/24 2:40:00 PM EST, 1 tab, PO, Daily, Disp# 90 tab, Refills: 3, [facility]: [id number] Start Date: 03/06/24 Status: Ordered aspirin 81 mg oral delayed release tablet Start: 03/07/19 5:07:00 PM EST, 1 tab, PO, Daily, Disp# 90 tab, Refills: 3, other Start Date: 03/07/19 Status: Ordered buPROPion 100 mg oral tablet Start: 12/28/18 10:31:00 AM EST, 150 mg =, PO, bid Start Date: 12/28/18 Status: Ordered carvedilol 25 mg oral tablet Start: 02/12/22 5:05:00 PM EST, 1 tab, PO, bid, Disp# 180 tab, Refills: 3, [id number] Start Date: 02/12/22 Status: Ordered losartan 50 mg oral tablet Start: 02/27/24 10:23:00 AM EST, 1 tab, PO, bid, Disp# 180 tab, Refills: 3, [id number] Start Date: 02/27/24 Status: Ordered Metamucil 3.4 g/5.2 g oral powder for reconstitution Start: 07/16/21 12:53:00 PM EDT Start Date: 07/16/21 Status: Ordered Pepcid 20 mg oral tablet Start: 04/14/23 9:52:00 AM EST, 1 tab, PO, bid, Disp# 180 tab, Refills: 3, [id number] Start Date: 04/14/23 Status: Ordered rosuvastatin 20 mg oral tablet Start: 10/27/23 8:56:00 AM EDT, See Instructions, Disp# 90 tab, Refills: 3, TAKE ONE TABLET BY MOUTHAT BEDTIME, [facility]: [id number] Start Date: 10/27/23 Status: Ordered traMADol Start: 07/16/21 12:54:00 PM EDT, 50 mg =, PO, q4h Start Date: 07/16/21 Status: Ordered Tylenol Arthritis Extended Release Start: 01/19/23 3:22:00 PM EST, 650 mg =, PO, bid Start Date: 01/19/23 Status: Ordered Mental Status 03/08/24 Barriers to Learning one year None evide nt Mandatory Health Literacy Documentation Yes Health Literacy Communication Barriers N ever Primary Language Syriac Problem List Condition Confirmation Course Effective Dates Status Health St atus Informant Bilateral carotid artery stenosis Confirmed Active Carotid artery stenosis Confirmed Active CKD (chronic kidney disease), stage IV Confirmed Active GERD with apnea Confirmed Active HTN (hypertension) Confirmed Active Renal artery occlusion Confirmed Active Renal artery stenosis Confirmed Active Tobacco user Confirmed Active Diagnosis Diagnosis Type Effective Dates Health Status Cl inical Service Informant Renal artery stenosis Discharge Diagnosis 03/08/24 Bilateral carotid artery stenosis Discharge Diagnosis 03/08/24 Procedures Procedure Date Related Diagnosis Body Site Status CE - Cataract extraction Completed D&C - Dilatation and curettage 1 Completed FESS - Functional endoscopic sinus surgery Completed Fusion of lumbar spine Co mpleted Left inguinal hernia Comp leted Tonsillectomy Completed 1multiple Vital Signs Most recent to oldest [Reference Range]: 1 2 Heart Rate 70 bpm (03/08/24 10:57 AM) Blood Pressure 86/48mmHg (03/08/24 10:58 AM) 90/50mmHg (03/08/24 10:57 AM) Cuff Pulse Pressure 38 mmHg (03/08/24 10:58 AM) 40 mmHg (03/08/24 10:57 AM) BP Location # 1 Right Arm (03/08/24 10:58 AM) Left Arm (03/08/24 10:57 AM) Social History Social History Type Response Tobacco Current every day sm oker, Cigarettes Smoking Status Never smoked cigaret poornima Sex Female Sex Representation Female (finding) [facility] Outpt Note * KIA Jewell, Mague: PERFORM Event Display: [facility] Outpt Note Authored Date: [id number] [facility] OUTPATIENT NOTE Name: DIEGO PATTERSON Patient Number: [id number] : 1935 Date of Service: 03/08/2024 Chief Complaint: _Follow-up for carotid stenosis HPI: _Mrs. Patterson is an elderly female who presents to Dr. Koch's vascular surgery clinic today fora 6-month follow-up visit regarding her history of carotid stenosis. As you may remember, patient is followed regularly for her carotid stenosis as well as renal artery stenosis. Patient states that she has been lightheaded recently having some low blood pressures at home. She denies any symptoms of cerebrovascular insufficiency otherwise, including amaurosis, unilateral extremity weakness numbness or tingling, difficulty speaking or swallowing, facial droop, sudden onset confusion. She states that her renal function has worsened slightly over the last year or so, but she has not been advisedthat she will require dialysis anytime soon. Her carotid ultrasound performed prior to today's appointment continues to demonstrate 70% stenosisof the left ICA, and no significant stenosis in the right ICA. She also has no significant stenosisin her subclavian arteries and antegrade flow in her vertebrals. Current Home Meds: (Last Updated 03/08 10:53) acetaminophen (Tylenol Arthritis Extended Release) 650 mg PO bid amLODIPine (amLODIPine 2.5 mg oral tablet) 1 tab PO Daily aspirin (aspirin 81 mg oral delayed release tablet) 81 mg PO Daily buPROPion (buPROPion 100 mg oral tablet) 150 mg PO bid carvedilol (carvedilol 25 mg oral tablet) 25 mg PO bid famotidine (Pepcid 20 mg oral tablet) 20 mg PO bid losartan (losartan 50 mg oral tablet) 50 mg PO bid psyllium (Metamucil 3.4 g/5.2 g oral powder for reconstitution) rosuvastatin (rosuvastatin 20 mg oral tablet) TAKE ONE TABLET BY MOUTH AT BEDTIME traMADol 50 mg PO q4h Allergies and Sensitivities: hydrALAZINE(lupus like syndrome) tetanus toxoid(unknown) Latex codeine PCN (penicillin) Past Medical History: Problems: Bilateral carotid artery stenosis Carotid artery stenosis GERD with apnea Renal artery occlusion CKD (chronic kidney disease), stage IV HTN (hypertension) Renal artery stenosis Tobacco user OBJECTIVE Vitals: Last Updated 03/08/24 10:58 Date Temp BP Location Pulse RR SpO2 Pain 03/08/24 86/48 Right Arm 03/08/24 90/50 Left Arm 70 96 0 08/24/23 150/62 Right Arm Vital Signs are the last 3 documented. No Orthostatic Data Available Height and Weight: Last Updated 08/24/23 08:40 Date BMI Wt(kg) Wt(lb) Method Ht(cm) (ft-in) Method 08/24/23 52 114 Standing Scale 01/19/23 52 114 Standing Scale 05/28/22 54.1 119 Standing Scale Heights and Weights are the last 3 documented. Physical Exam Constitutional: In general patient is a frail elderly female in no distress. She is alert and oriented for deficits. Her carotids do not demonstrate a bruit. Her heart is regular, lungs are decreasedthroughout but clear. Radial and brachial pulses are +3. The remainder of her exam was deferred by the patient she did not wish to move to the examining table. ASSESSMENT: _ PLAN: _ 1 ) _carotid stenosis Patient is followed regularly for carotid stenosis, and remains asymptomatic. We will have her return here in another 6 months for reevaluation with a new carotid ultrasound prior to that office visit. 2 ) _renal artery stenosis Patient does have a known right renal artery occlusion and left renal artery stenosis, with a mild decline of her renal function, but also with well- controlled blood pressures. At this point we have no plans for renal artery intervention, we will continue to monitor this with a renal artery ultrasound when she returns here in 6 months. Patient is agreeable this plan. She will call any other questions. She will also follow-up with her primary care physician regarding her blood pressure medications. Thank you for letting us participate in the care of this patient. I have personally spent_24__ minutes performing [id number] and fbz-kueo-ac-face activities on this date of service.Time does not include separately reported services. Activities Include: _x_ review of the medical record _x_ obtaining a history _x_ physical exam/evaluation __ review labs _x_ review radiology reports _x_ counseling/educating patient/family/caregiver __ discussion/referral to other healthcare professional _x_ documenting care in the medical record __ independent interpretation of results _x_ communication of results to patient/family/caregiver _x_ coordination of care Electronic Signature on File CC: Talita Cummins MD [address] [place] [address] * CC: Johnny Carpenter MD [facility] [address] [place] [id number] * CC: Andre Rondon DO [address] [place] [id number] Electronically Reviewed/Signed by: Mague Jewell PA-C Author Signature Dt/Tm:03/08/2024 11:36 AM [facility] [place] [address] [place] Patient Care team information Care Team Personnel Name: MD Cummins Tracy A Position: Referring Member Role: Primary Care Provider [address]: [address] [place] [address] [place] Name: KIA Jewell Lynn Position: Physician Choke Reamer Exempt - Vasc Surg Member Role: Lifetime Relationship Address: [address] [place] [id number] [place] Care Team Related Persons Name: TALITA CROWDER Name: ADALID CUEVAS
--- OUTSIDE RECORDS SUMMARY | 2024-03-16 23:15 | External Medical Summary | Continuity of Care Document ---
Author Name Unknown Organization [place] [address] [facility] Address [address] [place], [place] [id number] Care Team Providers Care Notch Grinder Name Role Phone Eden Cummins Primary Care Physician [phone] [id number] Date[facility]s): 03/08/24 - 03/08/[address], [address] [place] [address] [phone] Discharge Disposition: Home or Self Care Attending Physician: KIA Jewell Lynn Referring Physician: KIA Jewell Lynn Allergies, Adverse Reactions, Alerts Substance Criticality Severity Reaction Reaction Severity Status codeine Active hydrALAZINE lupus like syndrome Active PCN (penicillin) Act meghana tetanus toxoid unknown Activ e Latex Active Medications amLODIPine 2.5 mg oral tablet Start: [...] bid, Disp# 180 tab, Refills: 3, Pharmacy: [id number] Start Date: 02/12/22 Status: Ordered losartan 50 [...] 3, [id number] Start Date: 04/14/23 Status: Ordered rosuvastatin [...] PO, bid Start Date: 01/19/23 Status: Ordered Problem List Condition Confirmation Course Effective Dates Status Health St atus Informant Bilateral carotid artery stenosis Confirmed Active Carotid artery stenosis Confirmed Active CKD (chronic kidney disease), stage IV Confirmed Active GERD with apnea Confirmed Active HTN (hypertension) Confirmed Active Renal artery occlusion Confirmed Active Renal artery stenosis Confirmed Active Tobacco user Confirmed Active Procedures Procedure Date Related Diagnosis Body Site Status CE - Cataract extraction Completed D&C - Dilatation and curettage 1 Completed FESS - Functional endoscopic sinus surgery Completed Fusion of lumbar spine Co mpleted Left inguinal hernia Comp leted Tonsillectomy Completed 1multiple Results Radiology Reports * Exam Date Time Procedure Performing Provider Status 03/08/24 10:39 AM VL Carotid Duplex Bilateral Alfredo Gonsalves; Final Notes: (VL Carotid Duplex Bilateral) Reason For Exam: ryan VL Carotid Duplex Bilateral [facility] FINAL REPORT Name: DIEGO DE LEÓN : 1935 Visit: [id number] Date: 08 Mar 2024 TYPE OF TEST: Cerebrovascular Duplex REASON FOR TEST Known carotid stenosis INTERPRETATION/FINDINGS Duplex imaging performed of the bilateral extracranial arteries: 1. No hemodynamically significant stenosis in the right internal carotid artery. 2. 70-79% stenosis in the left internal carotid artery. 3. >50% stenosis of the proximal right external carotid artery. 4. No significant stenosis in the left external carotid artery. 5. Antegrade flow in the bilateral vertebral arteries. 6. No significant stenosis in the bilateral proximal subclavian arteries. Plaque Morphology: 1. Complex, calcified plaque in the bilateral carotid bulb/proximal internal carotid arteries. Compared to the previous study performed 08/24/2023, there is no change. IMPRESSION/COMMENTS I have personally reviewed the data relevant to the interpretation of this study. TECHNOLOGIST: Doris AVILA, [facility], [facility] PHYSICIAN: Lon Koch M.D. Signed: 03/08/2024 11:05 AM Final Dictated by:MD Koch Eugene J Dictated DT/TM:03/08/2024 11:06 Signed by:MD Koch Eugene J Signed (Electronic Signature):03/08/2024 11:05 Transcribed by:EJS Social History Social History Type Response Tobacco Current every day sm oker, Cigarettes Smoking Status Never smoked cigaret poornima Sex Female Sex Representation Female (finding) Patient Care team information Care Team Personnel Name: MD Cummins Tracy A Position: Referring Member Role: Primary Care Provider [address]: [address] [place] [id number] [place] Name: KIA Jewell Lynn Position: Physician Internet Ecommerce Specialist Exempt - Vasc Surg Member Role: Lifetime Relationship Address: [address] [place] [id number] Care Team Related Persons Name: EDEN CROWDER Name: ADALID CUEVAS
[2024-03-17 06:46] LABS: Hematocrit (blood only) 37.5 % (37.0-47.0); Hemoglobin 12.5 g/dl (12.0-16.0); Immature Granulocytes # (auto) 0.02 K/uL (0.01-0.20); Immature Granulocytes % (auto) 0.3 %; Lymphocytes # (auto) 1.06 K/uL (1.20-3.40); Lymphocytes % (auto) 16.9 %; Mean Corpuscular Hemoglobin 28.5 pg (25.0-34.0); Mean Corpuscular Hgb Conc 33.3 g/dL (32.0-36.0); Mean Corpuscular Volume 85.4 fL (80.0-100.0); Mean Platelet Volume 10.1 fL (9.4-12.4); Monocytes # (auto) 0.03 K/uL (0.11-0.59); Monocytes % (auto) 0.5 %; Neutrophils # (auto) 5.17 K/uL (1.40-6.50); Neutrophils % (auto) 82.3 %; Platelet Count 252 K/uL (130-400); RDW Coefficient of Variation 14.7 % (11.5-14.5); RDW Standard Deviation 45.9 fL (36.4-46.3); Red Blood Count 4.39 M/uL (4.20-5.40); White Blood Count 6.28 K/ul (4.8-10.8)
[2024-03-17 07:00] LABS: BUN Creatinine Ratio 13.7 (10-20); Calcium 9.5 mg/dl (8.6-10.3); Creatinine Clr Calc Pharmacy 13.5 ml/min; Potassium 4.7 mmol/L (3.5-5.1)
[2024-03-17] MEDS: FAMOTIDINE 20 MG TAB PO SCH (07:52)
--- NOTE | 2024-03-17 08:24 | Pulmonary Consultation ---
Date of Consultation March 17, 2024 Assessment & Plan (1) Bilateral pleural effusion: (2) JAVED (dyspnea on exertion): (3) Atrial fibrillation: (4) Lupus (systemic lupus erythematosus): (5) Tobacco smoker, 20 cigarettes or fewer per day: Plan CT chest 03/16/2024 personally reviewed: Bilateral apical pleural scarring Paraseptal emphysema appreciated bilaterally Large right and moderate left-sided pleural effusion Compressive atelectasis of the right middle as well as right lower lobe No significant mediastinal lymphadenopathy -- Shortness of breath Likely secondary to bilateral pleural effusion Patient also with underlying CKD BNP 90 Respiratory BioFire negative for everything on 03/16/2024 -- Ex-smoker Approximately [id number] smoking history Quit October 2023 --Paroxysmal A-fib Not on any anticoagulation --History of melanoma and daughter Plan: For thoracentesis later today Please note the above document was generated using voice recognition software. It may contain grammatical, syntax or spelling errors.Any formal questions or concerns about the content, text or information contained within the body of this dictation should be directly addressed to the provider for clarification. History of Present Illness Attending Physician: Joel Navarro MD History of Present Illness 88-year-old female admitted to the hospital for shortness of breath Past medical history: Lupus, A-fib, hypertension, CKD stage IV Pulmonary consulted for pleural effusion At the time of examination patient was resting comfortably on the bed. She was not in any respiratory distress She was saturating 96 to 97% on room air. She stated that she had been diagnosed with pneumonia on the right side in November. On asking whether she got antibiotics she denied getting any antibiotics. It would be unusual if she was diagnosed with pneumonia and not getting antibiotics. Has been complaining of worsening shortness of breath which has been going on for a while. It is usually bad when she is exerting or laying down flat No cough, no hemoptysis Denies any nausea vomiting No headache, no blurry vision No fever or chills Has gained weight in the recent past No dysuria or diarrhea Social history: Approximately 40 pack smoking history quit in October 2023. Used to work as a rn case mgr Used to have parakeet as well as cockatiel for approximately 6 years long time ago. No history of lung cancer in the family Allergies Allergy/AdvReac Type Severity Reaction Status Date / Time hydralazine Allergy Verified 03/16/24 17:53 codeine AdvReac Unknown Unknown Unverified 03/16/24 17:53 latex AdvReac Unknown Unknown Unverified 03/16/24 17:53 Penicillins AdvReac Unknown Unknown Unverified 03/16/24 17:53 Tetanus Vaccines and Toxoid AdvReac Unknown Unknown Unverified 03/16/24 17:53 Home Medications Medication Instructions Recorded Confirmed Type bupropion HCl 100 mg tablet,12 hr 100 mg PO BID 07/11/20 03/16/24 History sustained-release rosuvastatin 20 mg tablet 20 mg PO HS 07/11/20 03/16/24 History losartan 50 mg tablet 50 mg PO BID 11/20/20 03/16/24 History psyllium [Metamucil (sugar)] PO DAILY 11/20/20 08/22/23 History tramadol 50 mg tablet 50 mg PO DAILY PRN Pain 07/21/21 03/16/24 History carvedilol 12.5 mg tablet 25 mg PO BID 01/25/22 03/16/24 History aflibercept [Eylea HD] intravitreal Q5W 02/09/23 08/22/23 History aspirin 81 mg tablet,delayed 81 mg PO BID 08/22/23 03/16/24 History release famotidine 20 mg tablet 20 mg PO DAILY 08/22/23 03/16/24 History Patient History Medical History CKD (chronic kidney disease) stage 4, GFR 15-29 ml/min Depression TIA (transient ischemic attack) Hyperlipidemia Hypertension Surgical History H/O sinus surgery H/O excision of lamina of cervical vertebra for decompression of spinal cord Social History Smoking Status: Former smoker Tobacco Type: Cigarettes Cigarettes Per Day: 5-8; Do You Dip or Chew Tobacco: No; Hx Alcohol Use: No Hx Substance Use: No Preferred Language: Urdu Communication Ability: Effective Pony Rougher Required: No Beliefs That Will Affect Care: None marital status: / Current Living Situation: Alone Current Living Situation Comment: elderly apartment complex current occupational status: retired Other Information That Helps Us Care for You: No Feels Safe at Home: Yes Safety Concerns: Feels Safe At This Time Assistive Devices: Glasses Review of Systems 2 Review of Systems: All systems reviewed & are unremarkable except as noted in HPI & below Physical Exam 2 Physical Exam: Constitutional: No acute distress HEENT: EOMI, PERRLA Respiratory system: Decreased air entry bilaterally, more decreased on the right, no wheeze, no rhonchi, positive crackles bilateral lower lobe CVS: S1-S2 positive, no murmurs or gallops Abdomen: Soft, nontender, nondistended, positive bowel sounds x4 Extremities: +2 pulses bilaterally radialis/ dorsalis pedis, no cyanosis, +1 pitting edema bilateral lower extremity, anasarca Neuro: Awake alert oriented x3 Psych: Normal mood and affect G/U: No Weathers Skin: no rashes, warm and dry Lymphatic: no cervical or axillary lymphadenopathy Results & Data Results & Data Vital Signs (Past 12 Hours) Vital Signs Temp Pulse Pulse Pulse Resp BP BP 03/17/24 07:50 36.7 C 78 18 151/75 H 03/17/24 07:16 77 03/17/24 03:23 36.5 C 80 18 131/69 03/16/24 23:30 36.5 C 82 18 157/73 H 03/16/24 21:57 85 03/16/24 21:24 03/16/24 21:24 36.5 C 80 18 175/68 H 03/16/24 20:35 36.6 C 78 20 173/94 H Pulse Ox O2 Del Method 03/17/24 07:50 93 Room Air 03/17/24 07:16 03/17/24 03:23 93 Room Air 03/16/24 23:30 95 Room Air 03/16/24 21:57 03/16/24 21:24 Room Air 03/16/24 21:24 95 Room Air 03/16/24 20:35 94 Room Air Laboratory Results 03/17/24 06:20 03/17/24 06:20 PG Care Time/CCT Total # of Minutes Spent Total Time Spent with Patient: Total time spent is greater than 50% in coordination of care (as documented) at patient's floor/unit and/or counseling patient: C[place] [address] INT INP/OBS CARE 75MIN Patient Type Established Diagnoses Bilateral pleural effusion J90 JAVED (dyspnea on exertion) R06.09 Atrial fibrillation I48.91 Lupus (systemic lupus erythematosus) M32.9 Tobacco smoker, 20 cigarettes or fewer per day F17.200
[2024-03-17 12:42] LABS: Albumin Level 3.2 gm/dl (3.4-5.0); Bilirubin,Total 0.6 mg/dl (0.2-1.0); Total Protein 5.9 gm/dl (6.0-8.3)
--- NOTE | 2024-03-17 12:46 | Procedure Note ---
Procedure Note Date of Service March 17, 2024 Procedure: Diagnostic therapeutic ultrasound-guided catheter thoracentesis Trouble Locator Test Desk: Dr. Emma Levi Indication: Right pleural effusion Consent: Signed by patient and verified with timeout prior to procedure Anesthesia: 1% lidocaine without epinephrine local. Procedure: Consent was verified and timeout performed. Appropriate imaging studies were reviewed prior to the procedure. Patient was placed in a seated position and limited thoracic ultrasound was performed of the right chest. See separate imaging. Appropriate site above the diaphragm for thoracentesis was selected. The skin was prepped and draped in normal sterile fashion. Lidocaine was used for local analgesia. Fluid was aspirated via the finder needle. A small skin poli was made with the scalpel and the catheter over the needle apparatus was advanced over the rib into the pleural space. Using the syringe one-way valve system, a total of 1400 mL's of milky fluid was removed. Procedure was terminated due to chest tightness. The catheter was removed and observed to be intact. A sterile dressing was applied. Post procedure chest x-ray was ordered. Fluid was sent for labs, culture and cytology. Complications: None Blood loss: None [facility] Procedure Codes (Charges) Pulmonary/Thoracic Procedure 1: Pulmonary and Thoracic: 55444 Thoracentesis w imaging Coding CPT Codes Pulmonary/Thoracic - Pulmonary and Thoracic: 63932 Thoracentesis w imaging ([id number]) Additional Codes Date of Service ([facility].SURGERY)
--- NOTE | 2024-03-17 12:47 | XCELERA ---
[id number] \\[id number]___[id number].pdf
--- NOTE | 2024-03-17 12:47 | Procedure Note ---
Procedure Note Date of Service March 17, 2024 Bedside Ultrasound: Lung: Right:-Clear hypoechoic moderate to large right-sided pleural effusion with atelectasis of the lung Left:-Clear hypoechoic small left-sided pleural effusion with atelectasis of the lung Heart: Good EF, mild pericardial effusion Please note the above document was generated using voice recognition software. It may contain grammatical, syntax or spelling errors.Any formal questions or concerns about the content, text or information contained within the body of this dictation should be directly addressed to the provider for clarification. [facility] [place] Procedure Codes (Charges) Pulmonary/Thoracic Procedure 1: Pulmonary and Thoracic: 81573 US, Chest, real time with imaging documentation Coding CPT Codes Pulmonary/Thoracic - Pulmonary and Thoracic: 71373 US, Chest, real time with imaging documentation ([id number]) Additional Codes Date of Service ([facility].SURGERY)
--- NOTE | 2024-03-17 13:28 | XRay Report ---
EXAM: Radiograph of the Chest 1 View INDICATION: Postthoracentesis. TECHNIQUE: Frontal view of the chest. COMPARISON: 03/16/2024 FINDINGS: Lungs and pleural spaces: Significant decreased right pleural effusion with small basilar component. Stable small left pleural effusion. No pneumothorax. Improved aeration right lung base. Stable left basilar airspace consolidation and pulmonary edema. Heart: Shape and configuration within normal limits allowing for technique. Mediastinum: Normal contour. Bones/joints: No fracture, erosion or dislocation. Soft tissues: No abnormality noted. No radiopaque foreign body noted. Upper abdomen: No abnormality noted. IMPRESSION: 1. Significant decreased right pleural effusion with small basilar component. Stable small left pleural effusion. No pneumothorax. 2. Improved aeration right lung base. Stable left basilar airspace consolidation and pulmonary edema. ACT 112: Negative or not required by law. Electronically signed by Letitia Collins 03-17-2024 13:28 PM
[2024-03-17 14:07] LABS: Appearance Pleural Fluid Cloudy; Color Pleural Fluid Pale Yellow; RBC Pleural Fluid Auto < 2000 /uL; Source Pleural Fluid Right Lung; WBC Pleural Fluid Auto 150 /uL
[2024-03-17 14:08] LABS: Total Protein Pleural Fluid 3.3 gm/dl
[2024-03-17 14:23] LABS: Lymphocytes, Fluid 48 %; Mono,Macrophage,Mesothelial 46 %; Neutrophils, Fluid 6 %
--- NOTE | 2024-03-17 16:34 | Hospitalist Progress Note ---
Date of Service March 17, 2024 Assessment & Plan (1) Pleural effusion: (2) Edema of right lower extremity: Plan Vero is an 88-year-old female with PMH of lupus, tobacco use, TIAs, paroxysmal atrial fibrillation, HTN, and CKD stage IV. She presented on 03/16 at the behest of her PCP for progressive worsening of SOB/dyspnea. Patient believes that her symptoms originally started in December. She came to the ED on February 09, and had a workup done, but it was unremarkable. Since that time, her SOB with exertion has worsened, and she does occasionally feel SOB at rest. She also endorses wheezing, productive cough (clear sputum production), and orthopnea. Exertional Dyspnea, R>L Pleural Effusions. - BIofire negative Has had some right greater than left leg swelling, orthopnea, shortness of breath all consistent with CHF however BNP is normal and is relatively minimal pulmonary edema component. Chronic effusions for which pulm has been consulted for diagnostic/therapeutic thoracentesis - CXR R>L pleural effusions, relatively minimal 1+ bilateral DEDRA CTchest: No focal consolidation. Compressive atelectasis. Moderate to large bilateral pleural effusion. No pneumothorax. No suspicious lymphadenopathy. No focal lesions are seen. - S/p thoracentesis with lung reexpansion and clinical improvement in breathing. Cloudy/yellow fluid. Pleural fluid protein/serum protein ratio borderline. LDH serum 139 pleural LDH 61 suggestive of transudative effusion. - Right lower extremity edema, Relatively minimal left-sided edema. Doppler without evidence of DVT - TTE 03/17/2024: Hyperdynamic. EF 70%. Grade 1 diastolic dysfunction. Small noncircumferential pericardial effusion without hemodynamic compromise. - Suspect some chronic diastolic CHF, although currently compensated and without pulm edema. ECHO hyperdynamic, acute diuresis deferred. Will observe overnight for stability, renal monitoring, and following lung reexpansion. PT/OT is pending. Clinically greatly improved following thoro. Pleural fluid path pending Prior PNA - Treated w/ z pack in November - No ongoing infectious symptoms. Afebrile. No leukocytosis. Pericardial effusion Anterior, small, without hemodynamic compromise Lyme pending No chest pain, no evidence of pericarditis/myocarditis Chronic stable conditions: #HTN-carvedilol. Losartan held for slightly above normal renal function #HLDrosuvastatin #GERDfamotidine Disposition:M/T Full code Heart healthy diet VTE PPx: Teds; continue aspirin BID Admission and Anticipated Discharge Date Admission Date: March 16, 2024 Subjective Seen at the bedside Feels similar to yesterday maybe a little better. Anxious about her thoracentesis. No other concerns today No fevers, chills, sweats. Occasional dry cough Addendum: - Seen post thoracentesis. Feels greatly improved. Some cough initially, no wimproved. Was able to walk to the bathroom and back with good exercise tolerance and much less/no dyspnea. Physical Exam Physical Exam: General: A&Ox3. NAD. Cooperative. HEENT: Atraumatic, normocephalic. Vision/hearing intact Pulm: Diminished, R>L, coarse in the bases. Symmetrical chest rise. No increased work of breathing. No respiratory distress. Cardiac: RRR, -mrg. Radial pulses intact and symmetrical. Abdominal: Nontender, nondistended, soft. BS present. Ext: Moving all extremities equally. RLE 1+ edema, minimal L ankle edema Results & Data Results & Data Vital Signs (Past 12 Hours) Vital Signs Temp Pulse Pulse Resp BP Pulse Ox Pulse Ox 03/17/24 16:16 36.6 C 74 18 127/67 95 03/17/24 14:11 81 03/17/24 12:05 97 03/17/24 11:32 37 C 84 18 132/66 94 03/17/24 10:25 03/17/24 07:50 36.7 C 78 18 151/75 H 93 03/17/24 07:16 77 O2 Del Method O2 Del Method 03/17/24 16:16 Room Air 03/17/24 14:11 03/17/24 12:05 Room Air 03/17/24 11:32 Room Air 03/17/24 10:25 Room Air 03/17/24 07:50 Room Air 03/17/24 07:16 PG Care Time/CCT Total # of Minutes Spent Total Time Spent with Patient: Total time spent is greater than 50% in coordination of care (as documented) at patient's floor/unit and/or counseling patient: Coding Level of Care Code 81861 SUB INP/OBS CARE 3/50MIN Diagnoses Pleural effusion J90 Edema of right lower extremity R60.0
[2024-03-17] MEDS: POLYETHYLENE (MIRALAX) 17 GM PACK PO PRN (20:42)
[2024-03-18 06:29] LABS: Basophils # (auto) 0.01 K/uL (0.00-0.20); Basophils % (auto) 0.1 %; Hematocrit (blood only) 33.8 % (37.0-47.0); Hemoglobin 11.4 g/dl (12.0-16.0); Immature Granulocytes # (auto) 0.05 K/uL (0.01-0.20); Immature Granulocytes % (auto) 0.4 %; Lymphocytes # (auto) 0.95 K/uL (1.20-3.40); Lymphocytes % (auto) 6.9 %; Mean Corpuscular Hemoglobin 28.6 pg (25.0-34.0); Mean Corpuscular Hgb Conc 33.7 g/dL (32.0-36.0); Mean Corpuscular Volume 84.9 fL (80.0-100.0); Mean Platelet Volume 10.2 fL (9.4-12.4); Monocytes # (auto) 0.45 K/uL (0.11-0.59); Monocytes % (auto) 3.3 %; Neutrophils # (auto) 12.32 K/uL (1.40-6.50); Neutrophils % (auto) 89.3 %; Platelet Count 250 K/uL (130-400); RDW Coefficient of Variation 14.8 % (11.5-14.5); RDW Standard Deviation 46.4 fL (36.4-46.3); Red Blood Count 3.98 M/uL (4.20-5.40); White Blood Count 13.78 K/ul (4.8-10.8)
[2024-03-18 06:49] LABS: Creatinine Clr Calc Pharmacy 12.9 ml/min; Potassium 4.5 mmol/L (3.5-5.1)
[2024-03-18] MEDS: CHOLECALCIFEROL 125 MCG (5,000 UNITS) TAB PO SCH (08:49)
--- NOTE | 2024-03-18 12:01 | Pulmonology Progress Note ---
Date of Service March 18, 2024 Assessment & Plan (1) Bilateral pleural effusion: (2) JAVED (dyspnea on exertion): (3) Atrial fibrillation: (4) Lupus (systemic lupus erythematosus): (5) Tobacco smoker, 20 cigarettes or fewer per day: Plan CT chest 03/16/2024 personally reviewed: Bilateral apical pleural scarring Paraseptal emphysema appreciated bilaterally Large right and moderate left-sided pleural effusion Compressive atelectasis of the right middle as well as right lower lobe No significant mediastinal lymphadenopathy 2D echo 03/17/2024: EF greater than 70%, grade 1 diastolic dysfunction, RVSP 30-40 mmHg, circumferential pericardial effusion -- Shortness of breath Likely secondary to bilateral pleural effusion Patient also with underlying CKD BNP 90 Respiratory BioFire negative for everything on 03/16/2024 S/p right-sided thoracentesis 03/17/2024, 1400 mL of cloudy/milky fluid removed, exudative looking at the protein, lymphocytic with 48% lymphocytes Follow-up cholesterol Pleural fluid: LDH 61, protein 3.3, pH 7.5 Serum: LDH 179, protein 5.9 -- Ex-smoker Approximately 42-[id number]-[id number] smoking history Quit October 2023 --Paroxysmal A-fib Not on any anticoagulation --History of melanoma and daughter Plan: Chylothorax is a possibility in patient although patient denies any history of trauma or surgery to the chest. Given the pH of 7.5, probability of infectious etiology/empyema is very low. Follow-up cholesterol and cytology Patient does have CKD but given that she still has left-sided pleural effusion, judicious diuresis as tolerated would be recommended Case was discussed with primary team Please note the above document was generated using voice recognition software. It may contain grammatical, syntax or spelling errors.Any formal questions or concerns about the content, text or information contained within the body of this dictation should be directly addressed to the provider for clarification. Admission and Anticipated Discharge Date Admission Date: March 16, 2024 Subjective Patient seen and examined at bedside. No acute distress, no adverse events overnight She was saturating 96-97% on room air Still complains of mild chest discomfort when she takes deep breath then. No nausea vomiting Breathing is significantly improved after thoracentesis Has been afebrile Review of Systems 2 Review of Systems: All systems reviewed & are unremarkable except as noted in Subjective Physical Exam 2 Physical Exam: Constitutional: No acute distress HEENT: EOMI, PERRLA Respiratory system: Decreased air entry on the left lower side, no wheeze, no rhonchi, positive crackles bilateral lower lobe CVS: S1-S2 positive, no murmurs or gallops Abdomen: Soft, nontender, nondistended, positive bowel sounds x4 Extremities: +2 pulses bilaterally radialis/ dorsalis pedis, no cyanosis, +1 pitting edema bilateral lower extremity, anasarca Neuro: Awake alert oriented x3 Psych: Normal mood and affect G/U: No Weathers Skin: no rashes, warm and dry Lymphatic: no cervical or axillary lymphadenopathy Results & Data Results & Data Vital Signs (Past 12 Hours) Vital Signs Temp Pulse Pulse Resp BP Pulse Ox O2 Del Method 03/18/24 07:55 Room Air 03/18/24 07:33 37.0 C 64 16 132/65 93 Room Air 03/18/24 07:21 70 03/18/24 03:56 37 C 67 16 123/63 94 Room Air Laboratory Results 03/18/24 05:57 03/18/24 05:57 PG Care Time/CCT Total # of Minutes Spent Total Time Spent with Patient: Total time spent is greater than 50% in coordination of care (as documented) at patient's floor/unit and/or counseling patient: Coding Level of Care Code 79276 SUB INP/OBS CARE 2/35MIN Diagnoses Bilateral pleural effusion J90 JAVED (dyspnea on exertion) R06.09 Atrial fibrillation I48.91 Lupus (systemic lupus erythematosus) M32.9 Tobacco smoker, 20 cigarettes or fewer per day F17.200
--- NOTE | 2024-03-18 12:51 | XRay Report ---
EXAM: Radiograph of the Chest 1 View INDICATION: Reassess pulmonary disease. TECHNIQUE: Frontal view of the chest. COMPARISON: 03/17/2024 FINDINGS: Lungs and pleural spaces: There is increased airspace consolidation in the right lung base and small right pleural effusion. There is stable confluent consolidation in the left lung base and small left pleural effusion. No pneumothorax. Heart: Stable cardiac shadow. Mediastinum: Normal contour. Bones/joints: No fracture, erosion or dislocation. Soft tissues: No abnormality noted. No radiopaque foreign body noted. Vasculature: Stable diffusely calcified aorta. Upper abdomen: No abnormality noted. IMPRESSION: 1. Increased right basilar pneumonia and small right pleural effusion. 2. Stable dense consolidation left base and small left pleural effusion. Consider mucous plugging. ACT 112: Negative or not required by law. Electronically signed by Letitia Collins 03-18-2024 12:51 PM
--- NOTE | 2024-03-18 14:07 | Electrocardiogram Report ---
Test Reason : Blood Pressure : */* mmHG Vent. Rate : 73 BPM Atrial Rate : 258 BPM P-R Int : * ms QRS Dur : 68 ms QT Int : 394 ms P-R-T Axes : * -30 42 degrees QTcB Int : 434 ms Poor data quality, interpretation may be adversely affected Probable Sinus rhythm Left anterior fascicular block Low voltage QRS Possible Old Septal infarct (cited on or before 11-Jul-2020) Abnormal ECG When compared with ECG of 10-Feb-2024 11:52, Criteria for Inferior infarct are no longer Present Borderline Criteria for Septal infarct now present Confirmed by Miguel Angel Britton ([id number]) on 03/18/2024 2:07:20 PM Referred By: REFERRED SELF Confirmed By: Miguel Angel Britton
--- NOTE | 2024-03-18 14:21 | Hospitalist Progress Note ---
Date of Service March 18, 2024 Assessment & Plan (1) Pleural effusion: (2) Edema of right lower extremity: Plan Vero is an 88-year-old female with PMH of lupus, tobacco use, TIAs, paroxysmal atrial fibrillation, HTN, and CKD stage IV. She presented on 03/16 at the behest of her PCP for progressive worsening of SOB/dyspnea. Patient believes that her symptoms originally started in December. She came to the ED on February 09, and had a workup done, but it was unremarkable. Since that time, her SOB with exertion has worsened, and she does occasionally feel SOB at rest. She also endorses wheezing, productive cough (clear sputum production), and orthopnea. Exertional Dyspnea, R>L Pleural Effusions. - BIofire negative Has had some right greater than left leg swelling, orthopnea, shortness of breath all consistent with CHF however BNP is normal and is relatively minimal pulmonary edema component. Chronic effusions for which pulm has been consulted for diagnostic/therapeutic thoracentesis - CXR R>L pleural effusions, relatively minimal 1+ bilateral DEDRA CTchest: No focal consolidation. Compressive atelectasis. Moderate to large bilateral pleural effusion. No pneumothorax. No suspicious lymphadenopathy. No focal lesions are seen. - S/p thoracentesis with lung reexpansion and clinical improvement in breathing. Cloudy/yellow fluid. Pleural fluid protein/serum protein ratio suggestive of exudative effusion. LDH does not meet Light's criteria. Analysis pending. ? Chylothorax versus malignant exudative - Right lower extremity edema, Relatively minimal left-sided edema. Doppler without evidence of DVT - TTE 03/17/2024: Hyperdynamic. EF 70%. Grade 1 diastolic dysfunction. Small noncircumferential pericardial effusion without hemodynamic compromise. - Remain w/ concern for maligancy, cytology pending. Suspect some chronic diastolic CHF, although currently compensated and without pulm edema. ECHO hyperdynamic.While she does have some total body fluid overload she was not with significant pulmonary edema or JVD and w/ concern for orthostasis. Defer lasix today, mcc --> PO lasix 20mg 3 times weekly p.o., hold this if orthostasis worsens or creatinine jumps. Pleural fluid path pending - Stable for d/c. PT/OT rec rehab. Placement pending. CM consulted. Prior PNA - Treated w/ z pack in November - No ongoing infectious symptoms. Afebrile. No leukocytosis. Pericardial effusion Anterior, small, without hemodynamic compromise Lyme negative No chest pain, no evidence of pericarditis/myocarditis Chronic stable conditions: #HTN-carvedilol. Losartan held for orthostasis and renal dysfunction #HLDrosuvastatin #GERDfamotidine Disposition:M/T Full code Heart healthy diet VTE PPx: Teds; continue aspirin BID Admission and Anticipated Discharge Date Admission Date: March 16, 2024 Subjective Seen at bedside. Feels better, coughing yesterday after her tach has somewhat i mproved although has occasionally bringing up a little bit of thick sputum. No chest pain chest pressure. She is able to ambulate to the bathroom back today with improved breathing and much better than prior, although she notes she still does have a little lingering cough and shortness of breath. Physical Exam Physical Exam: General: A&Ox3. NAD. Cooperative. HEENT: Atraumatic, normocephalic. Pulm: Diminished with basilar crackles but without wheezes Cardiac: RRR, -mrg. Radial pulses intact and symmetrical. Abdominal: Nontender, nondistended, soft. BS present. Extremities: Bilateral pitting edema Results & Data Results & Data Vital Signs (Past 12 Hours) Vital Signs Temp Pulse Pulse Resp BP Pulse Ox Pulse Ox 03/18/24 13:55 65 03/18/24 12:05 97 03/18/24 07:55 03/18/24 07:33 37.0 C 64 16 132/65 93 03/18/24 07:21 70 03/18/24 03:56 37 C 67 16 123/63 94 O2 Del Method O2 Del Method 03/18/24 13:55 03/18/24 12:05 Room Air 03/18/24 07:55 Room Air 03/18/24 07:33 Room Air 03/18/24 07:21 03/18/24 03:56 Room Air PG Care Time/CCT Total # of Minutes Spent Total Time Spent with Patient: Total time spent is greater than 50% in coordination of care (as documented) at patient's floor/unit and/or counseling patient: Coding Level of Care Code 11359 SUB INP/OBS CARE 3/50MIN Diagnoses Pleural effusion J90 Edema of right lower extremity R60.0
[2024-03-18] MEDS ORDERED: cefTRIAXone SODIUM 2,000 MG/50 ML BAG IV SCH (19:00)
[2024-03-18] MEDS: levoFLOXacin 750 MG TAB PO ONE (20:35)
[2024-03-18] MEDS: DOXYCYCLINE HYCLATE 100 MG in DEXTROSE 5% MINI-B 100 ML IV SCH (20:41)
[2024-03-18] MEDS: LOSARTAN POTASSIUM 25 MG TAB PO SCH (22:02)
[2024-03-19 07:42] LABS: Basophils # (auto) 0.01 K/uL (0.00-0.20); Basophils % (auto) 0.1 %; Eosinophils # (auto) 0.01 K/uL (0.00-0.50); Eosinophils % (auto) 0.1 %; Hematocrit (blood only) 36.8 % (37.0-47.0); Hemoglobin 11.8 g/dl (12.0-16.0); Immature Granulocytes # (auto) 0.07 K/uL (0.01-0.20); Immature Granulocytes % (auto) 0.6 %; Lymphocytes # (auto) 1.42 K/uL (1.20-3.40); Lymphocytes % (auto) 11.3 %; Mean Corpuscular Hemoglobin 27.8 pg (25.0-34.0); Mean Corpuscular Hgb Conc 32.1 g/dL (32.0-36.0); Mean Corpuscular Volume 86.6 fL (80.0-100.0); Mean Platelet Volume 9.7 fL (9.4-12.4); Monocytes # (auto) 0.79 K/uL (0.11-0.59); Monocytes % (auto) 6.3 %; Neutrophils # (auto) 10.29 K/uL (1.40-6.50); Neutrophils % (auto) 81.6 %; Platelet Count 254 K/uL (130-400); RDW Coefficient of Variation 15.1 % (11.5-14.5); Red Blood Count 4.25 M/uL (4.20-5.40); White Blood Count 12.59 K/ul (4.8-10.8)
[2024-03-19 08:05] LABS: Calcium 9.4 mg/dl (8.6-10.3); Creatinine Clr Calc Pharmacy 12.7 ml/min; Potassium 4.3 mmol/L (3.5-5.1)
--- NOTE | 2024-03-19 09:25 | Electrocardiogram Report ---
Test Reason : Blood Pressure : */* mmHG Vent. 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
--- NOTE | 2024-03-19 09:29 | Electrocardiogram Report ---
Test Reason : Blood Pressure : */* mmHG Vent. Rate : 59 BPM Atrial Rate : 59 BPM P-R Int : 154 ms QRS Dur : 84 ms QT Int : 420 ms P-R-T Axes : 35 -10 40 degrees QTcB Int : 415 ms Sinus bradycardia Low voltage QRS Old Anteroseptal infarct (cited on or before 11-Jul-2020) Abnormal ECG When compared with ECG of 17-Mar-2024 16:35, Borderline Criteria for Inferior infarct no longer present Otherwise no significant change Confirmed by Miguel Angel Britton ([id number]) on 03/19/2024 9:29:36 AM Referred By: REFERRED SELF Confirmed By: Miguel Angel Britton
--- NOTE | 2024-03-19 09:29 | Electrocardiogram Report ---
Test Reason : Blood Pressure : */* mmHG Vent. Rate : 73 BPM Atrial Rate : 258 BPM P-R Int : * ms QRS Dur : 68 ms QT Int : 394 ms P-R-T Axes : * -30 42 degrees QTcB Int : 434 ms Poor data quality, interpretation may be adversely affected Probable Sinus rhythm Left axis deviation Low voltage QRS Possible Old Inferior infarct Old Anteroseptal infarct (cited on or before 11-Jul-2020) Abnormal ECG When compared with ECG of 16-Mar-2024 14:51, No significant change Confirmed by Miguel Angel Britton ([id number]) on 03/19/2024 9:28:53 AM Referred By: REFERRED SELF Confirmed By: Miguel Angel Britton
--- NOTE | 2024-03-19 14:01 | Hospitalist Progress Note ---
Date of Service March 19, 2024 Assessment & Plan (1) Pleural effusion: (2) Edema of right lower extremity: Plan Vero is an 88-year-old female with PMH of lupus, tobacco use, TIAs, paroxysmal atrial fibrillation, HTN, and CKD stage IV. She presented on 03/16 at the behest of her PCP for progressive worsening of SOB/dyspnea. Patient believes that her symptoms originally started in December. She came to the ED on February 09, and had a workup done, but it was unremarkable. Since that time, her SOB with exertion has worsened, and she does occasionally feel SOB at rest. She also endorses wheezing, productive cough (clear sputum production), and orthopnea. Exertional Dyspnea, R>L Pleural Effusions. - BIofire negative Has had some right greater than left leg swelling, orthopnea, shortness of breath all consistent with CHF however BNP is normal and is relatively minimal pulmonary edema component. Chronic effusions for which pulm has been consulted for diagnostic/therapeutic thoracentesis - CXR R>L pleural effusions, relatively minimal 1+ bilateral DEDRA CTchest: No focal consolidation. Compressive atelectasis. Moderate to large bilateral pleural effusion. No pneumothorax. No suspicious lymphadenopathy. No focal lesions are seen. - S/p thoracentesis with lung reexpansion and clinical improvement in breathing. Cloudy/yellow fluid. Pleural fluid protein/serum protein ratio suggestive of exudative effusion. LDH does not meet Light's criteria. Analysis pending. ? Chylothorax versus malignant exudative - Right lower extremity edema, Relatively minimal left-sided edema. Doppler without evidence of DVT - TTE 03/17/2024: Hyperdynamic. EF 70%. Grade 1 diastolic dysfunction. Small noncircumferential pericardial effusion without hemodynamic compromise. - Remain w/ concern for maligancy, cytology pending. Suspect some chronic diastolic CHF, although currently compensated and without pulm edema. ECHO hyperdynamic.While she does have some total body fluid overload she was not with significant pulmonary edema or JVD and w/ concern for orthostasis. Defer lasix today, chcf --> PO lasix 20mg 3 times weekly p.o., hold this if orthostasis worsens or creatinine jumps. Pleural fluid path pending - Stable for d/c. PT/OT rec rehab. Placement pending. CM consulted. PNA - No hypoxia - Repeat XR with evidence of increasing R basilar PNA - +Leukocytosis on 03/18. No fevers. Cough post thora - Last treated with a Z pack for PNA in November - leukocytosis and XR findings --> started tx with Levo. She has an anaphylactic allergy to penicillin based abx including throat swelling. MRSA nare is negative. Pericardial effusion Anterior, small, without hemodynamic compromise Lyme negative No chest pain, no evidence of pericarditis/myocarditis Chronic stable conditions: #HTN-carvedilol. Losartan held for orthostasis and renal dysfunction #HLDrosuvastatin #GERDfamotidine Disposition:M/T Full code Heart healthy diet VTE PPx: Teds; continue aspirin BID Admission and Anticipated Discharge Date Admission Date: March 16, 2024 Subjective Seen at bedside. No acute complaints No fever Breathing remains improved. Some dry cough No events overnight, no complaints 99% on RA Physical Exam Physical Exam: General: A&Ox3. NAD. Cooperative. HEENT: Atraumatic, normocephalic. Pulm: Diminished with basilar crackles but without wheezes Cardiac: RRR, -mrg. Radial pulses intact and symmetrical. Abdominal: Nontender, nondistended, soft. BS present. Extremities: Bilateral pitting edema Results & Data Results & Data Vital Signs (Past 12 Hours) Vital Signs Temp Pulse Pulse Resp BP BP Pulse Ox 03/19/24 12:32 36.4 C L 66 16 144/71 H 99 03/19/24 11:24 36.3 C L 69 16 157/70 H 97 03/19/24 08:55 03/19/24 07:15 36.3 C L 68 14 170/79 H 96 03/19/24 05:50 62 03/19/24 03:05 36.4 C L 63 16 157/71 H 95 Pulse Ox O2 Del Method O2 Del Method 03/19/24 12:32 Room Air 03/19/24 11:24 Room Air 03/19/24 08:55 95 Room Air 03/19/24 07:15 Room Air 03/19/24 05:50 03/19/24 03:05 Room Air PG Care Time/CCT Total # of Minutes Spent Total Time Spent with Patient: Total time spent is greater than 50% in coordination of care (as documented) at patient's floor/unit and/or counseling patient: Coding Level of Care Code 61120 SUB INP/OBS CARE MIN Diagnoses Pleural effusion J90 Edema of right lower extremity R60.0
[2024-03-19] MEDS ORDERED: FUROSEMIDE 20 MG TAB PO SCH (16:21)
[2024-03-20 05:57] LABS: Basophils # (auto) 0.02 K/uL (0.00-0.20); Basophils % (auto) 0.2 %; Eosinophils # (auto) 0.13 K/uL (0.00-0.50); Eosinophils % (auto) 1.3 %; Hematocrit (blood only) 34.8 % (37.0-47.0); Hemoglobin 11.4 g/dl (12.0-16.0); Immature Granulocytes # (auto) 0.06 K/uL (0.01-0.20); Immature Granulocytes % (auto) 0.6 %; Lymphocytes % (auto) 20.3 %; Mean Corpuscular Hemoglobin 28.1 pg (25.0-34.0); Mean Corpuscular Hgb Conc 32.8 g/dL (32.0-36.0); Mean Corpuscular Volume 85.9 fL (80.0-100.0); Mean Platelet Volume 9.9 fL (9.4-12.4); Monocytes # (auto) 0.76 K/uL (0.11-0.59); Monocytes % (auto) 7.7 %; Neutrophils # (auto) 6.86 K/uL (1.40-6.50); Neutrophils % (auto) 69.9 %; Platelet Count 223 K/uL (130-400); RDW Coefficient of Variation 15.1 % (11.5-14.5); RDW Standard Deviation 48.4 fL (36.4-46.3); Red Blood Count 4.05 M/uL (4.20-5.40); White Blood Count 9.83 K/ul (4.8-10.8)
[2024-03-20 06:08] LABS: BUN Creatinine Ratio 15.5 (10-20); Calcium 8.2 mg/dl (8.6-10.3); Creatinine Clr Calc Pharmacy 11.5 ml/min; Potassium 4.2 mmol/L (3.5-5.1)
[2024-03-20] MEDS: levoFLOXacin 500 MG TAB PO SCH (18:32)
--- NOTE | 2024-03-20 20:35 | Hospitalist Progress Note ---
Date of Service March 20, 2024 Assessment & Plan (1) Pleural effusion: (2) Edema of right lower extremity: Plan Vero is an 88-year-old female with PMH of lupus, tobacco use, TIAs, paroxysmal atrial fibrillation, HTN, and CKD stage IV. She presented on 03/16 at the behest of her PCP for progressive worsening of SOB/dyspnea. Patient believes that her symptoms originally started in December. She came to the ED on February 09, and had a workup done, but it was unremarkable. Since that time, her SOB with exertion has worsened, and she does occasionally feel SOB at rest. She also endorses wheezing, productive cough (clear sputum production), and orthopnea. Exertional Dyspnea, R>L Pleural Effusions. - BIofire negative Has had some right greater than left leg swelling, orthopnea, shortness of breath all consistent with CHF however BNP is normal and is relatively minimal pulmonary edema component. Chronic effusions for which pulm has been consulted for diagnostic/therapeutic thoracentesis - CXR R>L pleural effusions, relatively minimal 1+ bilateral DEDRA CTchest: No focal consolidation. Compressive atelectasis. Moderate to large bilateral pleural effusion. No pneumothorax. No suspicious lymphadenopathy. No focal lesions are seen. - S/p thoracentesis with lung reexpansion and clinical improvement in breathing. Cloudy/yellow fluid. Pleural fluid protein/serum protein ratio suggestive of exudative effusion. LDH does not meet Light's criteria. Analysis pending. ? Chylothorax versus malignant exudative - Right lower extremity edema, Relatively minimal left-sided edema. Doppler without evidence of DVT - TTE 03/17/2024: Hyperdynamic. EF 70%. Grade 1 diastolic dysfunction. Small noncircumferential pericardial effusion without hemodynamic compromise. - Remain w/ concern for maligancy, cytology pending. Suspect some chronic diastolic CHF, although currently compensated and without pulm edema. ECHO hyperdynamic.While she does have some total body fluid overload she was not with significant pulmonary edema or JVD and w/ concern for orthostasis. Defer lasix today, usp --> PO lasix 20mg 3 times weekly p.o., hold this if orthostasis worsens or creatinine jumps. Pleural fluid path pending - Stable for d/c. PT/OT rec rehab. Placement pending. CM consulted. PNA - No hypoxia - Repeat XR with evidence of increasing R basilar PNA - +Leukocytosis on 03/18. No fevers. Cough post thora - Last treated with a Z pack for PNA in November - leukocytosis and XR findings --> started tx with Levo. She has an anaphylactic allergy to penicillin based abx including throat swelling. MRSA nare is negative. Pericardial effusion Anterior, small, without hemodynamic compromise Lyme negative No chest pain, no evidence of pericarditis/myocarditis Chronic stable conditions: #HTN-carvedilol. Losartan held for orthostasis and renal dysfunction #HLDrosuvastatin #GERDfamotidine Disposition:M/T Full code Heart healthy diet VTE PPx: Teds; continue aspirin BID Admission and Anticipated Discharge Date Admission Date: March 16, 2024 Subjective "I am ok now. I don't have any complaints." Review of Systems Review of Systems: Negative for antecedent/coincident fevers, chills, diaphoresis, cough, wheeze, sore throat, hemoptysis, chest pains, palpitations, pleurisy, nausea, vomiting, diarrhea, abdominal pain, pelvic pain, hematemesis, hematochezia, melena, hematuria, dysuria, frequency, urgency, headaches, dizziness, lightheadedness, visual changes, hearing changes, weakness, falls, syncope, trauma, travel history, sick contacts, or food/drug ingestions novel or new. All other review of systems are reported as negative by the patient on 03/20/2024. Physical Exam Constitutional: General: comfortable, coherent, cooperative. Wide awake and alert. Not confused, lethargic, or obtunded. Patient speaks in complete, fluent, and articulate sentences without pause, interruption, cough, or wheeze. HEENT: NC/AT. EOMI, PERRL. No nystagmus, gaze paresis, anisocoria, miosis, mydriasis, hyphema, chemosis, scleral icterus, conjunctivitis, or pterygium. No otorrhea, no rhinorrhea. No pharyngeal discharge or erythema. Neck: Supple, no stridor, bruit, goiter, or hepatojugular reflux. Jugular venous pressure is estimated to be 8 cm above the sternal angle of Eulogio, which is typically 5 cm above the level of the right atrium. Hence, there is no jugular venous distention noted on discharge exam 03/20/2024. Lymphatics: No pre-post auricular, anterior/posterior cervical, supraclavicula r/infraclavicular, axillary, epitrochlear, or inguinal adenopathy. Chest: Symmetric rise and fall with respirations. Non-tender to palpation. Heart: RRR, S1 and S2 noted. No S3 or S4 summation gallop noted. No tripartite friction rub. Grade II/ early systolic murmur @ LLSB without radiation to the carotids, axilla, or back, and which remains invariant in regards to the respiratory cycle. Lungs: Clear to auscultation and percussion. No audible expiratory wheeze, egophony, pectoriloquy, increase in tactile fremitus, or flatness/dullness to percussion at the bases. Abdomen: Soft, non-tender, non-distended. No rebound, guarding, Corrales's sign, or organomegaly. Bowel sounds auscultated in all 4 quadrants. Extremities: No clubbing, cyanosis, or edema. 2+ pedal pulses bilaterally. Skin: No decubitus ulcer, exanthem, or enanthem. Neurology: Alert and oriented in regards to person, place, time, and situation. DTR+ and symmetric. 5/5 motor strength in all 4 extremities, both proximally and distally. No myoclonus, tremors, or tics. Urology: No melissa catheter. No urethral discharge. Psychiatry: Appropriate affect. Smiles occasionally. No homicidal/suicidal ideation. Results & Data Results & Data Vital Signs (Past 12 Hours) Vital Signs Temp Pulse Pulse Resp BP Pulse Ox Pulse Ox 03/20/24 19:46 36.6 C 70 18 127/69 97 03/20/24 14:38 36.3 C L 65 18 138/68 96 03/20/24 13:34 58 L 03/20/24 12:42 97 03/20/24 11:10 36.0 C L 68 18 129/60 96 03/20/24 09:57 03/20/24 09:56 96 O2 Del Method O2 Del Method 03/20/24 19:46 Room Air 03/20/24 14:38 Room Air 03/20/24 13:34 03/20/24 12:42 03/20/24 11:10 Room Air 03/20/24 09:57 Room Air 03/20/24 09:56 Room Air PG Care Time/CCT Total # of Minutes Spent Total Time Spent with Patient: Total time spent is greater than 50% in coordination of care (as documented) at patient's floor/unit and/or counseling patient: Coding Level of Care Code 73104 SUB INP/OBS CARE 2/35MIN Diagnoses Pleural effusion J90 Edema of right lower extremity R60.0
--- NOTE | 2024-03-21 20:18 | Hospitalist Progress Note ---
Date of Service March 21, 2024 Assessment & Plan (1) Pleural effusion: (2) Edema of right lower extremity: Plan Vero is an 88-year-old female with PMH of lupus, tobacco use, TIAs, paroxysmal atrial fibrillation, HTN, and CKD stage IV. She presented on 03/16 at the behest of her PCP for progressive worsening of SOB/dyspnea. Patient believes that her symptoms originally started in December. She came to the ED on February 09, and had a workup done, but it was unremarkable. Since that time, her SOB with exertion has worsened, and she does occasionally feel SOB at rest. She also endorses wheezing, productive cough (clear sputum production), and orthopnea. Exertional Dyspnea, R>L Pleural Effusions. - BIofire negative Has had some right greater than left leg swelling, orthopnea, shortness of breath all consistent with CHF however BNP is normal and is relatively minimal pulmonary edema component. Chronic effusions for which pulm has been consulted for diagnostic/therapeutic thoracentesis - CXR R>L pleural effusions, relatively minimal 1+ bilateral DEDRA CTchest: No focal consolidation. Compressive atelectasis. Moderate to large bilateral pleural effusion. No pneumothorax. No suspicious lymphadenopathy. No focal lesions are seen. - S/p thoracentesis with lung reexpansion and clinical improvement in breathing. Cloudy/yellow fluid. Pleural fluid protein/serum protein ratio suggestive of exudative effusion. LDH does not meet Light's criteria. Analysis pending. ? Chylothorax versus malignant exudative - Right lower extremity edema, Relatively minimal left-sided edema. Doppler without evidence of DVT - TTE 03/17/2024: Hyperdynamic. EF 70%. Grade 1 diastolic dysfunction. Small noncircumferential pericardial effusion without hemodynamic compromise. - Remain w/ concern for maligancy, cytology pending. Suspect some chronic diastolic CHF, although currently compensated and without pulm edema. ECHO hyperdynamic.While she does have some total body fluid overload she was not with significant pulmonary edema or JVD and w/ concern for orthostasis. Defer lasix today, assisted --> PO lasix 20mg 3 times weekly p.o., hold this if orthostasis worsens or creatinine jumps. Pleural fluid path pending - Stable for d/c. PT/OT rec rehab. Placement pending. CM consulted. PNA - No hypoxia - Repeat XR with evidence of increasing R basilar PNA - +Leukocytosis on 03/18. No fevers. Cough post thora - Last treated with a Z pack for PNA in November - leukocytosis and XR findings --> started tx with Levo. She has an anaphylactic allergy to penicillin based abx including throat swelling. MRSA nare is negative. Pericardial effusion Anterior, small, without hemodynamic compromise Lyme negative No chest pain, no evidence of pericarditis/myocarditis Chronic stable conditions: #HTN-carvedilol. Losartan held for orthostasis and renal dysfunction #HLDrosuvastatin #GERDfamotidine Disposition:M/T Full code Heart healthy diet VTE PPx: Teds; continue aspirin BID Admission and Anticipated Discharge Date Admission Date: March 16, 2024 Subjective "I am ok now. I don't have any complaints." Review of Systems Constitutional: Negative for antecedent/coincident fevers, chills, diaphoresis, cough, wheeze, sore throat, hemoptysis, chest pains, palpitations, pleurisy, nausea, vomiting, diarrhea, abdominal pain, pelvic pain, hematemesis, hematochezia, melena, hematuria, dysuria, frequency, urgency, headaches, dizziness, lightheadedness, visual changes, hearing changes, weakness, falls, syncope, trauma, travel history, sick contacts, or food/drug ingestions novel or new. All other review of systems are reported as negative by the patient on 03/21/2024. Physical Exam Constitutional: General: comfortable, coherent, cooperative. Wide awake and alert. Not confused, lethargic, or obtunded. Patient speaks in complete, fluent, and articulate sentences without pause, interruption, cough, or wheeze. HEENT: NC/AT. EOMI, PERRL. No nystagmus, gaze paresis, anisocoria, miosis, mydriasis, hyphema, chemosis, scleral icterus, conjunctivitis, or pterygium. No otorrhea, no rhinorrhea. No pharyngeal discharge or erythema. Neck: Supple, no stridor, bruit, goiter, or hepatojugular reflux. Jugular venous pressure is estimated to be 8 cm above the sternal angle of Eulogio, which is typically 5 cm above the level of the right atrium. Hence, there is no jugular venous distention noted on discharge exam 03/21/2024. Lymphatics: No pre-post auricular, anterior/posterior cervical, supraclavicular/infraclavicular, axillary, epitrochlear, or inguinal adenopathy. Chest: Symmetric rise and fall with respirations. Non-tender to palpation. Heart: RRR, S1 and S2 noted. No S3 or S4 summation gallop noted. No tripartite friction rub. Grade II/ early systolic murmur @ LLSB without radiation to the carotids, axilla, or back, and which remains invariant in regards to the respiratory cycle. Lungs: Clear to auscultation and percussion. No audible expiratory wheeze, egophony, pectoriloquy, increase in tactile fremitus, or flatness/dullness to percussion at the bases. Abdomen: Soft, non-tender, non-distended. No rebound, guarding, Corrales's sign, or organomegaly. Bowel sounds auscultated in all 4 quadrants. Extremities: No clubbing, cyanosis, or edema. 2+ pedal pulses bilaterally. Skin: No decubitus ulcer, exanthem, or enanthem. Neurology: Alert and oriented in regards to person, place, time, and situation. DTR+ and symmetric. 5/5 motor strength in all 4 extremities, both proximally and distally. No myoclonus, tremors, or tics. Urology: No melissa catheter. No urethral discharge. Psychiatry: Appropriate affect. Smiles occasionally. No homicidal/suicidal ideation. Results & Data Results & Data Vital Signs (Past 12 Hours) Vital Signs Temp Pulse Pulse Resp BP Pulse Ox O2 Del Method 03/21/24 20:12 36.7 C 72 18 146/71 H 97 Room Air 03/21/24 15:35 36.3 C L 71 20 146/72 H 96 Room Air 03/21/24 14:45 69 03/21/24 11:38 36.5 C 76 20 105/58 L 97 Room Air 03/21/24 08:26 36.6 C 66 18 146/77 H 96 Room Air PG Care Time/CCT Total # of Minutes Spent Total Time Spent with Patient: Total time spent is greater than 50% in coordination of care (as documented) at patient's floor/unit and/or counseling patient: Coding Level of Care Code 24429 SUB INP/OBS CARE 235MIN Diagnoses Pleural effusion J90 Edema of right lower extremity R60.0
[2024-03-22 09:15] LABS: Basophils # (auto) 0.01 K/uL (0.00-0.20); Basophils % (auto) 0.1 %; Eosinophils # (auto) 0.31 K/uL (0.00-0.50); Eosinophils % (auto) 3.6 %; Hematocrit (blood only) 35.8 % (37.0-47.0); Hemoglobin 11.6 g/dl (12.0-16.0); Immature Granulocytes # (auto) 0.04 K/uL (0.01-0.20); Immature Granulocytes % (auto) 0.5 %; Lymphocytes # (auto) 2.05 K/uL (1.20-3.40); Lymphocytes % (auto) 23.7 %; Mean Corpuscular Hemoglobin 28.5 pg (25.0-34.0); Mean Corpuscular Hgb Conc 32.4 g/dL (32.0-36.0); Mean Platelet Volume 9.8 fL (9.4-12.4); Monocytes # (auto) 0.63 K/uL (0.11-0.59); Monocytes % (auto) 7.3 %; Neutrophils # (auto) 5.62 K/uL (1.40-6.50); Neutrophils % (auto) 64.8 %; Platelet Count 219 K/uL (130-400); RDW Coefficient of Variation 15.6 % (11.5-14.5); RDW Standard Deviation 51.1 fL (36.4-46.3); Red Blood Count 4.07 M/uL (4.20-5.40); White Blood Count 8.66 K/ul (4.8-10.8)
[2024-03-22 09:21] LABS: BUN Creatinine Ratio 16.4 (10-20); Calcium 8.6 mg/dl (8.6-10.3); Creatinine Clr Calc Pharmacy 12.2 ml/min; Potassium 4.3 mmol/L (3.5-5.1)
[2024-03-22 14:32] LABS: Appearance Urine Clear (Clear); Bilirubin Urine Negative (Negative); Blood Urine Negative (Negative); Color Urine Yellow; Glucose Urine UA Negative (Negative); Ketones Urine Negative (Negative); Leukocyte Esterase Urine Negative (Negative); Nitrite Urine Negative (Negative); Protein Urine Negative (Negative); Specific Gravity Urine 1.012 (1.000-1.030); Urobilinogen Urine Negative (Negative)
--- NOTE | 2024-03-22 20:30 | Hospitalist Progress Note ---
Date of Service March 22, 2024 Assessment & Plan (1) Pleural effusion: (2) Edema of right lower extremity: Plan 88-years old right-hand predominant female with PMH of FULL CODE @ home, lupus, former tobacco use with no subsequent diagnosis of COPD, not on home O2 or home steroids, CVD s/p TIA, paroxysmal AFIB, chronic diastolic CHF with preserved LV EF > 70% and grade I LV diastolic dysfunction (as noted on 03/17/2024, 7:28am TTE, CARDS Dr. Miguel Angel Britton), HTN, and CKD stage IV with baseline creatinine range, 1.91 - 2.45 (07/11/2020 - 02/10/2024), who presented to [facility] on 03/16/2024 at the behest of her PCP Dr. Eden Cummins ([place], [place]) for progressive worsening of SOB/dyspnea. Patient believes that her symptoms originally started in December 2023; subsequently, patient first came to [facility] on 02/10/2024, and had a workup done, but it was unremarkable. Since that time, patient's SOB with exertion has worsened, and occasionally, patient feels SOB at rest. Patient also endorsed wheezing, productive cough (clear sputum production), and orthopnea. Exertional Dyspnea, R>L Pleural Effusions. - BIofire negative Has had some right greater than left leg swelling, orthopnea, shortness of breath all consistent with CHF however BNP is normal and is relatively minimal pulmonary edema component. Chronic effusions for which pulm has been consulted for diagnostic/therapeutic thoracentesis - CXR R>L pleural effusions, relatively minimal 1+ bilateral DEDRA CTchest: No focal consolidation. Compressive atelectasis. Moderate to large bilateral pleural effusion. No pneumothorax. No suspicious lymphadenopathy. No focal lesions are seen. - S/p thoracentesis with lung reexpansion and clinical improvement in breathing. Cloudy/yellow fluid. Pleural fluid protein/serum protein ratio suggestive of exudative effusion. LDH does not meet Light's criteria. Analysis pending. ? Chylothorax versus malignant exudative - Right lower extremity edema, Relatively minimal left-sided edema. Doppler without evidence of DVT - TTE 03/17/2024: Hyperdynamic. EF 70%. Grade 1 diastolic dysfunction. Small noncircumferential pericardial effusion without hemodynamic compromise. - Remain w/ concern for maligancy, cytology pending. Suspect some chronic diastolic CHF, although currently compensated and without pulm edema. ECHO hyperdynamic.While she does have some total body fluid overload she was not with significant pulmonary edema or JVD and w/ concern for orthostasis. Defer lasix today, longterm --> PO lasix 20mg 3 times weekly p.o., hold this if orthostasis worsens or creatinine jumps. Pleural fluid path pending - Stable for d/c. PT/OT rec rehab. Placement pending. CM consulted. PNA - No hypoxia - Repeat XR with evidence of increasing R basilar PNA - +Leukocytosis on 03/18. No fevers. Cough post thora - Last treated with a Z pack for PNA in November - leukocytosis and XR findings --> started tx with Levo. She has an anaphylactic allergy to penicillin based abx including throat swelling. MRSA nare is negative. Pericardial effusion Anterior, small, without hemodynamic compromise Lyme negative No chest pain, no evidence of pericarditis/myocarditis Chronic stable conditions: #HTN-carvedilol. Losartan held for orthostasis and renal dysfunction #HLDrosuvastatin #GERDfamotidine Disposition:M/T Full code Heart healthy diet VTE PPx: Teds; continue aspirin BID Admission and Anticipated Discharge Date Admission Date: March 16, 2024 Subjective "I am ok now. I don't have any complaints." Review of Systems Constitutional: Negative for antecedent/coincident fevers, chills, diaphoresis, cough, wheeze, sore throat, hemoptysis, chest pains, palpitations, pleurisy, nausea, vomiting, diarrhea, abdominal pain, pelvic pain, hematemesis, hematochezia, melena, hematuria, dysuria, frequency, urgency, headaches, dizziness, lightheadedness, visual changes, hearing changes, weakness, falls, syncope, trauma, travel history, sick contacts, or food/drug ingestions novel or new. All other review of systems are reported as negative by the patient on 03/22/2024. Physical Exam Constitutional: General: comfortable, coherent, cooperative. Wide awake and alert. Not confused, lethargic, or obtunded. Patient speaks in complete, fluent, and articulate sentences without pause, interruption, cough, or wheeze. HEENT: NC/AT. EOMI, PERRL. No nystagmus, gaze paresis, anisocoria, miosis, mydriasis, hyphema, chemosis, scleral icterus, conjunctivitis, or pterygium. No otorrhea, no rhinorrhea. No pharyngeal discharge or erythema. Neck: Supple, no stridor, bruit, goiter, or hepatojugular reflux. Jugular venous pressure is estimated to be 8 cm above the sternal angle of Eulogio, which is typically 5 cm above the level of the right atrium. Hence, there is no jugular venous distention noted on 03/22/2024. Lymphatics: No pre-post auricular, anterior/posterior cervical, supraclavicular /infraclavicular, axillary, epitrochlear, or inguinal adenopathy. Chest: Symmetric rise and fall with respirations. Non-tender to palpation. Heart: RRR, S1 and S2 noted. No S3 or S4 summation gallop noted. No tripartite friction rub. Grade II/ early systolic murmur @ LLSB without radiation to the carotids, axilla, or back, and which remains invariant in regards to the respiratory cycle. Lungs: Clear to auscultation and percussion. No audible expiratory wheeze, egophony, pectoriloquy, increase in tactile fremitus, or flatness/dullness to percussion at the bases. Abdomen: Soft, non-tender, non-distended. No rebound, guarding, Corrales's sign, or organomegaly. Bowel sounds auscultated in all 4 quadrants. Extremities: No clubbing, cyanosis, or edema. 2+ pedal pulses bilaterally. Skin: No exanthem or enanthem or decubitus ulcer. Neurology: Alert and oriented in regards to person, place, time, and situation. DTR+ and symmetric. 5/5 motor strength in all 4 extremities, both proximally and distally. No myoclonus, tremors, or tics. Urology: No melissa catheter. No urethral discharge. Psychiatry: Appropriate affect. Smiles occasionally. No homicidal/suicidal ideation. Results & Data Results & Data Vital Signs (Past 12 Hours) Vital Signs Temp Pulse Pulse Resp BP Pulse Ox O2 Del Method 03/22/24 19:07 36.6 C 66 17 150/68 H 96 Room Air 03/22/24 16:16 36.3 C L 70 18 145/62 H 95 Room Air 03/22/24 14:30 65 03/22/24 11:32 36.7 C 71 20 134/63 97 Room Air Laboratory Results cf., creatinine 2.39 mg/dL (03/16/2024, 2:53pm). cf., creatinine 2.48 mg/dL (03/17/2024, 6:20am). cf., creatinine 2.59 mg/dL (03/18/2024, 5:57am). cf., creatinine 2.64 mg/dL (03/19/2024, 7:15am). cf., creatinine 2.91 mg/dL (03/20/2024, 5:26am). cf., creatinine 2.74 mg/dL (03/22/2024, 8:42am). cf., total protein 5.9, LDH 139, glucose 177 (03/17/2024, 6:20am). Diagnostic Findings Right-sided thoracentesis (03/17/2024): pH 7.50, WBC 150, N6 L48 M46, RBC < 2000, total protein 3.3, LDH 61, glucose 193, amylase 25, cholesterol PG Care Time/CCT Total # of Minutes Spent Total Time Spent with Patient: Total time spent is greater than 50% in coordination of care (as documented) at patient's floor/unit and/or counseling patient: Coding Level of Care Code 01761 SUB INP/OBS CARE 2/35MIN Diagnoses Pleural effusion J90 Edema of right lower extremity R60.0
[2024-03-23 09:16] LABS: Basophils # (auto) 0.02 K/uL (0.00-0.20); Basophils % (auto) 0.2 %; Eosinophils # (auto) 0.37 K/uL (0.00-0.50); Eosinophils % (auto) 3.9 %; Hemoglobin 11.8 g/dl (12.0-16.0); Immature Granulocytes # (auto) 0.05 K/uL (0.01-0.20); Immature Granulocytes % (auto) 0.5 %; Lymphocytes # (auto) 2.12 K/uL (1.20-3.40); Lymphocytes % (auto) 22.1 %; Mean Corpuscular Hemoglobin 28.8 pg (25.0-34.0); Mean Corpuscular Hgb Conc 32.8 g/dL (32.0-36.0); Mean Corpuscular Volume 87.8 fL (80.0-100.0); Mean Platelet Volume 9.6 fL (9.4-12.4); Monocytes % (auto) 7.3 %; Neutrophils # (auto) 6.34 K/uL (1.40-6.50); Platelet Count 222 K/uL (130-400); RDW Coefficient of Variation 15.7 % (11.5-14.5); RDW Standard Deviation 50.1 fL (36.4-46.3)
[2024-03-23 09:59] LABS: BUN Creatinine Ratio 17.1 (10-20); Potassium 3.9 mmol/L (3.5-5.1)
--- NOTE | 2024-03-23 16:42 | Discharge Summary ---
Discharge Summary Date of Service March 23, 2024 Principal Dx & Hospital Course #1 = Principal Diagnosis (1) Pleural effusion: (2) Edema of right lower extremity: Plan 88-years old right-hand predominant female with PMH of FULL CODE @ home, lupus, former tobacco use with no subsequent diagnosis of COPD, not on home O2 or home steroids, CVD s/p TIA, paroxysmal AFIB, chronic diastolic CHF with preserved LV EF > 70% and grade I LV diastolic dysfunction (as noted on 03/17/2024, 7:28am TTE, CARDS Dr. Miguel Angel Britton), HTN, and CKD stage IV with baseline creatinine range, 1.91 - 2.45 (07/11/2020 - 02/10/2024), who presented to [facility] ER on 03/16/2024 at the behest of her PCP Dr. Eden Cummins ([place], [place]) for progressive worsening of SOB/dyspnea. Patient believes that her symptoms originally started in December 2023; subsequently, patient first came to [facility] ER on 02/10/2024, and had a workup done, but it was unremarkable. Since that time, patient's SOB with exertion has worsened, and occasionally, patient feels SOB at rest. Patient also endorsed wheezing, productive cough (clear sputum production), and orthopnea. The following medical issues were addressed while the patient remained in [facility] from 03/16/2024 to 03/23/2024: Exertional Dyspnea, RESOLVED. R>L Pleural Effusions. - BIofire negative Has had some right greater than left leg swelling, orthopnea, shortness of tutu ath all consistent with CHF however BNP is normal and is relatively minimal pulmonary edema component. Chronic effusions for which pulm has been consulted for diagnostic/therapeutic thoracentesis - CXR R>L pleural effusions, relatively minimal 1+ bilateral DEDRA CTchest: No focal consolidation. Compressive atelectasis. Moderate to large bilateral pleural effusion. No pneumothorax. No suspicious lymphadenopathy. No focal lesions are seen. - S/p thoracentesis with lung reexpansion and clinical improvement in breathing. Cloudy/yellow fluid. Pleural fluid protein/serum protein ratio suggestive of exudative effusion. LDH does not meet Light's criteria. Analysis pending. ? Chylothorax versus malignant exudative - Right lower extremity edema, Relatively minimal left-sided edema. Doppler without evidence of DVT - TTE 03/17/2024: Hyperdynamic. EF 70%. Grade 1 diastolic dysfunction. Small noncircumferential pericardial effusion without hemodynamic compromise. - Remain w/ concern for maligancy, cytology pending. Suspect some chronic diastolic CHF, although currently compensated and without pulm edema. ECHO hyperdynamic.While she does have some total body fluid overload she was not with significant pulmonary edema or JVD and w/ concern for orthostasis. 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 Pleural fluid path pending - Stable for d/c. PT/OT rec rehab. Patient was subsequently discharged to [facility] for short-term rehab on 03/23/2024. PNA - No hypoxia - Repeat XR with evidence of increasing R basilar PNA - +Leukocytosis on 03/18. No fevers. Cough post thora - Last treated with a Z pack for PNA in November - leukocytosis and XR findings --> started tx with Levo. She has an anaphylactic allergy to penicillin based abx including throat swelling. MRSA nares was negative (03/18/2024, 7:40pm). Pericardial effusion Anterior, small, without hemodynamic compromise Lyme negative No chest pain, no evidence of pericarditis/myocarditis - Observe. Chronic stable conditions: #HTN- well-controlled with discharge BP 112/61 (03/23/2024, 3:33pm) on home- scheduled carvedilol 25mg PO bid. Of note, patient did not receive her home- scheduled losartan 50mg PO bid due to orthostasis and due to acute kidney injury with creatinine level increasing from 2.39 mg/dL (03/16/2024, 2:53pm) to 2.48 mg/dL (03/17/2024, 6:20am), and that developed on 03/17/2024, 6:20am, AFTER patient was admitted to [facility] on 03/16/2024. Subsequently, patient was NOT orthostatic by BP or HR measurements taken while patient went from [id number], or from [id number] positions on 03/21/2024. In addition, patient's acute kidney injury appears to be resolving, having peaked with a creatinine of 2.91 mg/dL (03/20/2024, 5:26am), which then declined to 2.74 mg/dL (03/22/2024, 8:42am) to 2.57 mg/dL (03/23/2024, 8:36am). Hence, patient may resume her home-scheduled losartan 50mg PO bid after patient arrives at [facility] on 03/23/2024 pm. #HLD asymptomatic on home-scheduled rosuvastatin 20mg PO qhs while in [facility] from 03/16/2024 to 03/23/2024. Patient will continue this home-scheduled medication after patient arrives at [facility] on 03/23/2024 pm. #GERD asymptomatic on home-scheduled famotidine 20mg PO daily while in [facility] from 03/16/2024 to 03/23/2024. Patient will continue this home-scheduled medication after patient arrives at [facility] on 03/23/2024 pm. Discharge time, 35 minutes. Of this time period, 18 minutes were spent in coordinating patient's discharge. Admission HPI Per Admitting Provider Vero is an 88-year-old female with PMH of lupus, tobacco use, TIAs, paroxysmal atrial fibrillation, HTN, and CKD stage IV. She presented on 03/16 at the behest of her PCP for progressive worsening of SOB/dyspnea. Patient believes that her symptoms originally started in December. She came to the ED on February 09, and had a workup done, but it was unremarkable. Since that time, her SOB with exertion has worsened, and she does occasionally feel SOB at rest. She also endorses wheezing, productive cough (clear sputum production), and orthopnea. Patient sleeps in the recliner. Patient lives by herself, and ambulates with a walker at baseline. No sick contacts. She manages her own medicine at home. She reports she took her regular morning medicine today, and her only recent change is that she was taken off of amlodipine recently. No recent change in diet. She reports that she watches her salt intake at home. Additionally, her right leg is increasingly swollen today, but she thinks it might have been from the way she was sitting. No prior history of DVT/PE. She does not have a prior history of heart failure, and is not currently on diuretics. Patient reports that her SpO2 has been dropping to 87% with activity. Patient is a former tobacco cigarette smoker, but quit in October 2023. She denies any recent alcohol use. Patient is hypertensive at 172/70 at time of admission; vitals otherwise stable. ED course: DuoNeb 3 mL Solu-Medrol 125 mg IV Furosemide 20 mg IV ROS: Patient endorses lightheadedness when walking, progressive SOB at rest and with exertion, productive cough (clear sputum production), orthopnea, intermittent wheezing, conversational dyspnea, BELTRAN, "stitch" under the right breast, Patient denies fever, chills, night-sweats, syncope, recent falls, chest pain, chest palpitations, pleuritic CP, hemoptysis, or abdominal pain. Discharge Exam Constitutional General: comfortable, coherent, cooperative. Wide awake and alert. Not confused, lethargic, or obtunded. Patient speaks in complete, fluent, and articulate sentences without pause, interruption, cough, or wheeze. HEENT: NC/AT. EOMI, PERRL. No nystagmus, gaze paresis, anisocoria, miosis, mydriasis, hyphema, chemosis, scleral icterus, conjunctivitis, or pterygium. No otorrhea, no rhinorrhea. No pharyngeal discharge or erythema. Neck: Supple, no stridor, bruit, goiter, or hepatojugular reflux. Jugular venous pressure is estimated to be 8 cm above the sternal angle of Eulogio, which is typically 5 cm above the level of the right atrium. Hence, there is no jugular venous distention noted on discharge date 03/23/2024. Lymphatics: No pre-post auricular, anterior/posterior cervical, supraclavicular/infraclavicular, axillary, epitrochlear, or inguinal adenopathy. Chest: Symmetric rise and fall with respirations. Non-tender to palpation. Heart: RRR, S1 and S2 noted. No S3 or S4 summation gallop noted. No tripartite friction rub. Grade II/ early systolic murmur @ LLSB without radiation to the carotids, axilla, or back, and which remains invariant in regards to the respiratory cycle. Lungs: Clear to auscultation and percussion. No audible expiratory wheeze, egophony, pectoriloquy, increase in tactile fremitus, or flatness/dullness to percussion at the bases. Abdomen: Soft, non-tender, non-distended. No rebound, guarding, Corrales's sign, or organomegaly. Bowel sounds auscultated in all 4 quadrants. Extremities: No clubbing, cyanosis, or edema. 2+ pedal pulses bilaterally. Skin: No exanthem or enanthem or decubitus ulcer. Neurology: Alert and oriented in regards to person, place, time, and situation. DTR+ and symmetric. 5/5 motor strength in all 4 extremities, both proximally and distally. No myoclonus, tremors, or tics. Urology: No melissa catheter. No urethral discharge. Psychiatry: Appropriate affect. Smiles occasionally. No homicidal/suicidal ideation. Discharge Plan Discharge Items Patient Disposition: Transfer [facility] Reason For Visit: PLEURAL EFFUSIONS Discharge Diagnosis: Bilateral pleural effusions Activity: Resume your previous activity Non-emergency contact: Primary Care Provider Call non-emergency contact if: you have any medication questions and your symptoms worsen Follow-up/Referrals: Eden Cummins MD [Primary Care Provider] - Diet: Heart Healthy, Low Fat and Low Sodium (2gm) Addtl Attending Provider Instructions: You were seen in the hospital for shortness of breath. You underwent a thoracentesis, a procedure which drained fluid from your lung. You felt improved following this. Fluid analysis was suspicious for a thick type of fluid called exudative effusion, with further studies including cytology and lipid levels pending but which will not be available for several days. It is recommended you follow-up with both your PCP and pulmonology. A CAT scan of your chest did not show evidence of pulmonary edema (a type of fluid usually related to heart failure in the lung tissue itself), but you did have some fluid accumulation in your legs and abdomen. You have been prescribed a low-dose of Lasix as noted below however if this makes you lightheaded dizzy or lowers your blood pressure below 110 please stop taking this medication and discuss this medicine further with your primary care physician. A CAT scan of your chest did not show any evidence of cancer however malignancy can cause accumulation of this type of fluid in some patients. Please follow-up with your primary care doctor, Dr. Eden Cummins ([place]) or oil prospecting observer for the final results of the fluid analysis at your follow-up appointment. You are seen by physical therapy after drainage of fluid from your lung. Your oxygenation and exertional tolerance was improved, but it was recommended you undergo additional strengthening at acute rehab. If you develop any new or worsening symptoms including fever, chills, sweats, chest pain, chest pressure, difficulty breathing, uncontrolled nausea/vomiting, rash, wheezing, passing out or nearly passing out, bleeding, black/bloody bowel movements, or other new or concerning symptoms please call your primary care physician, or call 911 for re-evaluation in the emergency department if you are very concerned. Pending Studies at Discharge: No Stand-Alone Forms: My [facility] Skilled Items Patient informed of condition?: Yes DNR: No Discharge Level of Care: Acute rehab Communicable Disease: No Discharge Prognosis: Stable Lines: None Urinary Catheter: No Medications and DC Order Prescriptions: Continued famotidine 20 mg tablet 20 mg PO DAILY aflibercept [Eylea HD] intravitreal Q5W tramadol 50 mg tablet 50 mg PO DAILY PRN (Reason: Pain) losartan 50 mg tablet 50 mg PO BID psyllium [Metamucil (sugar)] PO DAILY bupropion HCl 100 mg tablet sustained-release 12 hr 100 mg PO BID rosuvastatin 20 mg tablet 20 mg PO HS carvedilol 12.5 mg tablet 25 mg PO BID aspirin 81 mg tablet,delayed release (DR/EC) 81 mg PO BID Discharge Orders: Discharge Order (Routine); Ordered 03/23/24 Ordered By: Sunny Kimbrough Discharge Order- CHF (Routine); Ordered 03/23/24 Ordered By: Sunny Kimbrough Admission Data Admit Date/Time: 03/16/24 17:41 Attending Provider: Sunny Kimbrough Admit Provider: Joel Navarro Primary Care Provider: Eden Cummins Other Providers: Joel Navarro; Emma Levi; [facility] Hospital Stay Data Consultations 03/16/24 16:24 ED Decision to Admit Stat 03/16/24 19:17 Consult Pulmonology Routine Diagnostic Imagining Performed 03/16/24 16:22 US venous doppler LE RT Stat 03/16/24 16:55 CT chest diagnostic wo con Stat 03/17/24 08:21 US point of care ultrasound Urgent Pending Results Patient Have Any Pending Studies at Discharge: No Discharge Instructions Given to Patient (Per Discharging Provider) You were seen in the hospital for shortness of breath. You underwent a thoracentesis, a procedure which drained fluid from your lung. You felt improved following this. Fluid analysis was suspicious for a thick type of fluid called exudative effusion, with further studies including cytology and lipid levels pending but which will not be available for several days. It is recommended you follow-up with both your PCP and pulmonology. A CAT scan of your chest did not show evidence of pulmonary edema (a type of fluid usually related to heart failure in the lung tissue itself), but you did have some fluid accumulation in your legs and abdomen. You have been prescribed a low-dose of Lasix as noted below however if this makes you lightheaded dizzy or lowers your blood pressure below 110 please stop taking this medication and discuss this medicine further with your primary care physician. A CAT scan of your chest did not show any evidence of cancer however malignancy can cause accumulation of this type of fluid in some patients. Please follow-up with your primary care doctor, Dr. Eden Cummins ([place], [place]) or oil prospecting observer for the final results of the fluid analysis at your follow-up appointment. You are seen by physical therapy after drainage of fluid from your lung. Your oxygenation and exertional tolerance was improved, but it was recommended you undergo additional strengthening at acute rehab. If you develop any new or worsening symptoms including fever, chills, sweats, chest pain, chest pressure, difficulty breathing, uncontrolled nausea/vomiting, rash, wheezing, passing out or nearly passing out, bleeding, black/bloody bowel movements, or other new or concerning symptoms please call your primary care physician, or call 911 for re-evaluation in the emergency department if you are very concerned. Total Time Total Time Spent Total Time Spent (In Minutes): 35 minutes Coding Level of Care Code 90197 INP/OBS DISCH >30 MIN Diagnoses Pleural effusion J90 Edema of right lower extremity R60.0
[2024-03-24 09:03] LABS: BUN Creatinine Ratio 17.2 (10-20); Creatinine Clr Calc Pharmacy 13.7 ml/min; Potassium 4.6 mmol/L (3.5-5.1)
[2024-03-24] MEDS: ACETAMINOPHEN 325 MG TAB PO PRN (18:05)
--- NOTE | 2024-03-24 18:10 | Discharge Summary ---
Discharge Summary Date of Service March 24, 2024 Principal Dx & Hospital Course #1 = Principal Diagnosis (1) Pleural effusion: (2) Edema of right lower extremity: Plan 88-years old right-hand predominant female with PMH of FULL CODE @ home, lupus, former tobacco use with no subsequent diagnosis of COPD, not on home O2 or home steroids, CVD s/p TIA, paroxysmal AFIB, chronic diastolic CHF with preserved LV EF > 70% and grade I LV diastolic dysfunction (as noted on 03/17/2024, 7:28am TTE, CARDS Dr. Miguel Angel Britton), HTN, and CKD stage IV with baseline creatinine range, 1.91 - 2.45 (07/11/2020 - 02/10/2024), who presented to [facility] ER on 03/16/2024 at the behest of her PCP Dr. Eden Cummins ([place], [place]) for progressive worsening of SOB/dyspnea. Patient believes that her symptoms originally started in December 2023; subsequently, patient first came to [facility] ER on 02/10/2024, and had a workup done, but it was unremarkable. Since that time, patient's SOB with exertion has worsened, and occasionally, patient feels SOB at rest. Patient also endorsed wheezing, productive cough (clear sputum production), and orthopnea. The following medical issues were addressed while the patient remained in [facility] from 03/16/2024 to 03/24/2024: Exertional Dyspnea, RESOLVED. R>L Pleural Effusions. - BIofire negative Has had some right greater than left leg swelling, orthopnea, shortness of breath all consistent with CHF however BNP is normal and is relatively minimal pulmonary edema component. Chronic effusions for which pulm has been consulted for diagnostic/therapeutic thoracentesis - CXR R>L pleural effusions, relatively minimal 1+ bilateral DEDRA CTchest: No focal consolidation. Compressive atelectasis. Moderate to large bilateral pleural effusion. No pneumothorax. No suspicious lymphadenopathy. No focal lesions are seen. - S/p thoracentesis with lung reexpansion and clinical improvement in breathing. Cloudy/yellow fluid. Pleural fluid protein/serum protein ratio suggestive of exudative effusion. LDH does not meet Light's criteria. Analysis pending. ? Chylothorax versus malignant exudative - Right lower extremity edema, Relatively minimal left-sided edema. Doppler without evidence of DVT - TTE 03/17/2024: Hyperdynamic. EF 70%. Grade 1 diastolic dysfunction. Small noncircumferential pericardial effusion without hemodynamic compromise. - Remain w/ concern for maligancy, cytology pending. Suspect some chronic diastolic CHF, although currently compensated and without pulm edema. ECHO hyperdynamic.While she does have some total body fluid overload she was not with significant pulmonary edema or JVD and w/ concern for orthostasis. Defer lasix today, alf --> PO lasix 20mg 3 times weekly p.o., hold this if orthostasis worsens or creatinine jumps. Pleural fluid path pending - Stable for D/C to either [facility] ([place], [place]) or to [facility] ([place], [place]) on 03/25/2024 or on 03/26/2024. PNA - No hypoxia - Repeat XR with evidence of increasing R basilar PNA - +Leukocytosis on 03/18. No fevers. Cough post thora - Last treated with a Z pack for PNA in November - leukocytosis and XR findings --> started tx with Levo. She has an anaphylactic allergy to penicillin based abx including throat swelling. MRSA nares was negative (03/18/2024, 7:40pm). Pericardial effusion Anterior, small, without hemodynamic compromise Lyme negative No chest pain, no evidence of pericarditis/myocarditis - Observe. Chronic stable conditions: #HTN- well-controlled with discharge BP 112/61 (03/23/2024, 3:33pm) on home- scheduled carvedilol 25mg PO bid. Of note, patient did not receive her home- scheduled losartan 50mg PO bid due to orthostasis and due to acute kidney injury with creatinine level increasing from 2.39 mg/dL (03/16/2024, 2:53pm) to 2.48 mg/dL (03/17/2024, 6:20am), and that developed on 03/17/2024, 6:20am, AFTER patient was admitted to [facility] on 03/16/2024. Subsequently, patient was NOT orthostatic by BP or HR measurements taken while patient went from [id number], or from [id number] positions on 03/21/2024. In addition, patient's acute kidney injury appears to be resolving, having peaked with a creatinine of 2.91 mg/dL (03/20/2024, 5:26am), which then declined progresively to: cf., creatinine 2.74 mg/dL (03/22/2024, 8:42am). cf., creatinine 2.57 mg/dL (03/23/2024, 8:36am) cf., creatinine 2.44 mg/dL (03/24/2024, 8:18am). Hence, patient may resume her home-scheduled losartan 50mg PO bid after patient arrives at either [facility] ([place], [place]) or to [facility] ([place], [place]) on 03/25/2024 or on 03/26/2024. #HLD asymptomatic on home-scheduled rosuvastatin 20mg PO qhs while in [facility] from 03/16/2024 to 03/24/2024. Patient will continue this home-scheduled medication after patient arrives at either [facility] ([place]) or to [facility] ([place]) on 03/25/2024 or on 03/26/2024. #GERD asymptomatic on home-scheduled famotidine 20mg PO daily while in [facility] from 03/16/2024 to 03/24/2024. Patient will continue this home-scheduled medi cation after patient arrives at either [facility] ([place], [place]) or to [facility] ([place]) on 03/25/2024 or on 03/26/2024. Discharge time, 35 minutes. Of this time period, 18 minutes were spent in coordinating patient's discharge. Admission HPI Per Admitting Provider Vero is an 88-year-old female with PMH of lupus, tobacco use, TIAs, paroxysmal atrial fibrillation, HTN, and CKD stage IV. She presented on 03/16 at the behest of her PCP for progressive worsening of SOB/dyspnea. Patient believes that her symptoms originally started in December. She came to the ED on February 09, and had a workup done, but it was unremarkable. Since that time, her SOB with exertion has worsened, and she does occasionally feel SOB at rest. She also endorses wheezing, productive cough (clear sputum production), and orthopnea. Patient sleeps in the recliner. Patient lives by herself, and ambulates with a walker at baseline. No sick contacts. She manages her own medicine at home. She reports she took her regular morning medicine today, and her only recent change is that she was taken off of amlodipine recently. No recent change in diet. She reports that she watches her salt intake at home. Additionally, her right leg is increasingly swollen today, but she thinks it might have been from the way she was sitting. No prior history of DVT/PE. She does not have a prior history of heart failure, and is not currently on diuretics. Patient reports that her SpO2 has been dropping to 87% with activity. Patient is a former tobacco cigarette smoker, but quit in October 2023. She denies any recent alcohol use. Patient is hypertensive at 172/70 at time of admission; vitals otherwise stable. ED course: DuoNeb 3 mL Solu-Medrol 125 mg IV Furosemide 20 mg IV ROS: Patient endorses lightheadedness when walking, progressive SOB at rest and with exertion, productive cough (clear sputum production), orthopnea, intermittent wheezing, conversational dyspnea, BELTRAN, "stitch" under the right breast, Patient denies fever, chills, night-sweats, syncope, recent falls, chest pain, chest palpitations, pleuritic CP, hemoptysis, or abdominal pain. Discharge Exam Constitutional General: comfortable, coherent, cooperative. Wide awake and alert. Not confused, lethargic, or obtunded. Patient speaks in complete, fluent, and articulate sentences without pause, interruption, cough, or wheeze. HEENT: NC/AT. EOMI, PERRL. No nystagmus, gaze paresis, anisocoria, miosis, mydriasis, hyphema, chemosis, scleral icterus, conjunctivitis, or pterygium. No otorrhea, no rhinorrhea. No pharyngeal discharge or erythema. Neck: Supple, no stridor, bruit, goiter, or hepatojugular reflux. Jugular venous pressure is estimated to be 8 cm above the sternal angle of Eulogio, which is typically 5 cm above the level of the right atrium. Hence, there is no jugular venous distention noted on discharge date 03/24/2024. Lymphatics: No pre-post auricular, anterior/posterior cervical, chamberlain praclavicular/infraclavicular, axillary, epitrochlear, or inguinal adenopathy. Chest: Symmetric rise and fall with respirations. Non-tender to palpation. Heart: RRR, S1 and S2 noted. No S3 or S4 summation gallop noted. No tripartite friction rub. Grade II/ early systolic murmur @ LLSB without radiation to the carotids, axilla, or back, and which remains invariant in regards to the respiratory cycle. Lungs: Clear to auscultation and percussion. No audible expiratory wheeze, egophony, pectoriloquy, increase in tactile fremitus, or flatness/dullness to percussion at the bases. Abdomen: Soft, non-tender, non-distended. No rebound, guarding, Corrales's sign, or organomegaly. Bowel sounds auscultated in all 4 quadrants. Extremities: No clubbing, cyanosis, or edema. 2+ pedal pulses bilaterally. Skin: No exanthem or enanthem or decubitus ulcer. Neurology: Alert and oriented in regards to person, place, time, and situation. DTR+ and symmetric. 5/5 motor strength in all 4 extremities, both proximally and distally. No myoclonus, tremors, or tics. Urology: No melissa catheter. No urethral discharge. Psychiatry: Appropriate affect. Smiles occasionally. No homicidal/suicidal ideation. Discharge Plan Discharge Items Patient Disposition: Transfer [facility] Fac Reason For Visit: PLEURAL EFFUSIONS Discharge Diagnosis: Bilateral pleural effusions Activity: Resume your previous activity Non-emergency contact: Primary Care Provider Call non-emergency contact if: you have any medication questions and your symptoms worsen Follow-up/Referrals: Eden Cummins MD [Primary Care Provider] - Diet: Heart Healthy, Low Fat and Low Sodium (2gm) Addtl Attending Provider Instructions: You were seen in the hospital for shortness of breath. You underwent a thoracentesis, a procedure which drained fluid from your lung. You felt improved following this. Fluid analysis was suspicious for a thick type of fluid called exudative effusion, with further studies including cytology and lipid levels pending but which will not be available for several days. It is recommended you follow-up with both your PCP and pulmonology. A CAT scan of your chest did not show evidence of pulmonary edema (a type of fluid usually related to heart failure in the lung tissue itself), but you did have some fluid accumulation in your legs and abdomen. You have been prescribed a low-dose of Lasix as noted below however if this makes you lightheaded dizzy or lowers your blood pressure below 110 please stop taking this medication and discuss this medicine further with your primary care physician. A CAT scan of your chest did not show any evidence of cancer however malignancy can cause accumulation of this type of fluid in some patients. Please follow-up with your primary care doctor, Dr. Eden Cummins ([place]) or machine adjuster leader case trim for the final results of the fluid analysis at your follow-up appointment. You are seen by physical therapy after drainage of fluid from your lung. Your oxygenation and exertional tolerance was improved, but it was recommended you undergo additional strengthening at acute rehab. If you develop any new or worsening symptoms including fever, chills, sweats, chest pain, chest pressure, difficulty breathing, uncontrolled nausea/vomiting, rash, wheezing, passing out or nearly passing out, bleeding, black/bloody bowel movements, or other new or concerning symptoms please call your primary care physician, or call 911 for re-evaluation in the emergency department if you are very concerned. Pending Studies at Discharge: No Stand-Alone Forms: My [facility] Skilled Items Patient informed of condition?: Yes DNR: No Discharge Level of Care: Acute rehab Communicable Disease: No Discharge Prognosis: Stable Lines: None Urinary Catheter: No Medications and DC Order Prescriptions: Continued famotidine 20 mg tablet 20 mg PO DAILY aflibercept [Eylea HD] intravitreal Q5W tramadol 50 mg tablet 50 mg PO DAILY PRN (Reason: Pain) losartan 50 mg tablet 50 mg PO BID psyllium [Metamucil (sugar)] PO DAILY bupropion HCl 100 mg tablet sustained-release 12 hr 100 mg PO BID rosuvastatin 20 mg tablet 20 mg PO HS carvedilol 12.5 mg tablet 25 mg PO BID aspirin 81 mg tablet,delayed release (DR/EC) 81 mg PO BID Admission Data Admit Date/Time: 03/16/24 17:41 Attending Provider: Sunny Kimbrough Admit Provider: Joel Navarro Primary Care Provider: Eden Cummins Other Providers: Joel Navarro; Emma Levi; [facility] Hospital Stay Data Consultations 03/16/24 16:24 ED Decision to Admit Stat 03/16/24 19:17 Consult Pulmonology Routine Diagnostic Imagining Performed 03/16/24 16:22 US venous doppler LE RT Stat 03/16/24 16:55 CT chest diagnostic wo con Stat 03/17/24 08:21 US point of care ultrasound Urgent Pending Results Patient Have Any Pending Studies at Discharge: No Discharge Instructions Given to Patient (Per Discharging Provider) You were seen in the hospital for shortness of breath. You underwent a thoracentesis, a procedure which drained fluid from your lung. You felt improved following this. Fluid analysis was suspicious for a thick type of fluid called exudative effusion, with further studies including cytology and lipid levels pending but which will not be available for several days. It is recommended you follow-up with both your PCP and pulmonology. A CAT scan of your chest did not show evidence of pulmonary edema (a type of fluid usually related to heart failure in the lung tissue itself), but you did have some fluid accumulation in your legs and abdomen. You have been prescribed a low-dose of Lasix as noted below however if this makes you lightheaded dizzy or lowers your blood pressure below 110 please stop taking this medication and discuss this medicine further with your primary care physician. A CAT scan of your chest did not show any evidence of cancer however malignancy can cause accumulation of this type of fluid in some patients. Please follow-up with your primary care doctor, Dr. Eden Cummins ([place], [place]) or machine adjuster leader case trim for the final results of the fluid analysis at your follow-up appointment. You are seen by physical therapy after drainage of fluid from your lung. Your oxygenation and exertional tolerance was improved, but it was recommended you undergo additional strengthening at acute rehab. If you develop any new or worsening symptoms including fever, chills, sweats, chest pain, chest pressure, difficulty breathing, uncontrolled nausea/vomiting, rash, wheezing, passing out or nearly passing out, bleeding, black/bloody bowel movements, or other new or concerning symptoms please call your primary care physician, or call 911 for re-evaluation in the emergency department if you are very concerned. Total Time Total Time Spent Total Time Spent (In Minutes): 35 minutes Coding Level of Care Code 60657 INP/OBS DISCH >30 MIN Diagnoses Pleural effusion J90 Edema of right lower extremity R60.0
[2024-03-25 08:57] LABS: BUN Creatinine Ratio 16.5 (10-20); Calcium 9.2 mg/dl (8.6-10.3); Creatinine Clr Calc Pharmacy 14.2 ml/min; Potassium 4.5 mmol/L (3.5-5.1)
--- NOTE | 2024-03-25 13:34 | Discharge Summary ---
Discharge Summary Date of Service March 25, 2024 Principal Dx & Hospital Course #1 = Principal Diagnosis (1) Pleural effusion: (2) Edema of right lower extremity: Plan 88-years old right-hand predominant female with PMH of FULL CODE @ home, lupus, former tobacco use with no subsequent diagnosis of COPD, not on home O2 or home steroids, CVD s/p TIA, paroxysmal AFIB, chronic diastolic CHF with preserved LV EF > 70% and grade I LV diastolic dysfunction (as noted on 03/17/2024, 7:28am TTE, CARDS Dr. Miguel Angel Britton), HTN, and CKD stage IV with baseline creatinine range, 1.91 - 2.45 (07/11/2020 - 02/10/2024), who presented to [facility] ER on 03/16/2024 at the behest of her PCP Dr. Eden Cummins ([place], [place]) for progressive worsening of SOB/dyspnea. Patient believes that her symptoms originally started in December 2023; subsequently, patient first came to [facility] ER on 02/10/2024, and had a workup done, but it was unremarkable. Since that time, patient's SOB with exertion has worsened, and occasionally, patient feels SOB at rest. Patient also endorsed wheezing, productive cough (clear sputum production), and orthopnea. The following medical issues were addressed while the patient remained in [facility] from 03/16/2024 to 03/24/2024: 1. Exertional Dyspnea, RESOLVED. R>L Pleural Effusions. - BIofire negative Has had some right greater than left leg swelling, orthopnea, shortness of breath all consistent with CHF however BNP is normal and is relatively minimal pulmonary edema component. Chronic effusions for which pulm has been consulted for diagnostic/therapeutic thoracentesis - CXR R>L pleural effusions, relatively minimal 1+ bilateral DEDRA CTchest: No focal consolidation. Compressive atelectasis. Moderate to large bilateral pleural effusion. No pneumothorax. No suspicious lymphadenopathy. No focal lesions are seen. - S/p thoracentesis with lung reexpansion and clinical improvement in breathing. Cloudy/yellow fluid. Pleural fluid protein/serum protein ratio suggestive of exudative effusion. LDH does not meet Light's criteria. Analysis pending. ? Chylothorax versus malignant exudative - Right lower extremity edema, Relatively minimal left-sided edema. Doppler without evidence of DVT - TTE 03/17/2024: Hyperdynamic. EF 70%. Grade 1 diastolic dysfunction. Small noncircumferential pericardial effusion without hemodynamic compromise. - Remain w/ concern for maligancy, cytology pending. Suspect some chronic diastolic CHF, although currently compensated and without pulm edema. ECHO hyperdynamic.While she does have some total body fluid overload she was not with significant pulmonary edema or JVD and w/ concern for orthostasis. Defer lasix today, mcfp --> PO lasix 20mg 3 times weekly p.o., hold this if orthostasis worsens or creatinine jumps. Pleural fluid path pending - Stable for D/C to either [facility] ([place], [place]) or to [facility] ([place], [place]) on 03/25/2024 or on 03/26/2024. 2. Acute RLL CAP, RESOLVED. - Breathing comfortably with RR 16, O2 sat 96% on room air (03/25/2024, 11:55am). - MRSA nares negative (03/18/2024, 7:40pm). - s/p levofloxacin 750mg PO x 1 dose (, 6:50pm), doxycycline 100mg IV q12 x 4 doses (03/18/2024, 9:00pm; 03/19/2024, 9:00am, 9:00pm; 03/20/2024, 9:00am), levofloxacin 500mg PO q48 x 1 dose (03/20/2024, 7:00pm). - Observe OFF antibiotics. 3. Pericardial effusion, ASYMPTOMATIC. Anterior, small, without hemodynamic compromise Lyme negative No chest pain, no evidence of pericarditis/myocarditis - Observe. Other chronic stable medical conditions include: 4. HTN - well-controlled with discharge BP 131/63 (03/25/2024, 11:55am) on home-scheduled carvedilol 25mg PO bid. Of note, patient did not receive her home-scheduled losartan 50mg PO bid due to orthostasis and due to acute kidney injury with creatinine level increasing from 2.39 mg/dL (03/16/2024, 2:53pm) to 2.48 mg/dL (03/17/2024, 6:20am), and that developed on 03/17/2024, 6:20am, AFTER patient was admitted to [facility] on 03/16/2024. Subsequently, patient was NOT orthostatic by BP or HR measurements taken while patient went from [id number], or from cjvqxnf-[id number] positions on 03/21/2024. In addition, patient's acute kidney injury appears to be resolving, having peaked with a creatinine of 2.91 mg/dL (03/20/2024, 5:26am), which then declined progresively to: cf., creatinine 2.74 mg/dL (03/22/2024, 8:42am). cf., creatinine 2.57 mg/dL (03/23/2024, 8:36am) cf., creatinine 2.44 mg/dL (03/24/2024, 8:18am). cf., creatinine 2.36 mg/dL (03/25/2024, 8:18am). Hence, patient may resume her home-scheduled losartan 50mg PO bid after patient arrives at either [facility] ([place], [place]) or to [facility] ([place], [place]) on 03/25/2024 or on 03/26/2024. 5. HLD asymptomatic on home-scheduled rosuvastatin 20mg PO qhs while in [facility] from 03/16/2024 to 03/24/2024. Patient will continue this home-scheduled medication after patient arrives at either [facility] ([place]) or to [facility] ([place], [place]) on 03/25/2024 or on 03/26/2024. 6. GERD asymptomatic on home-scheduled famotidine 20mg PO daily while in [facility] from 03/16/2024 to 03/24/2024. Patient will continue this home-scheduled medication after patient arrives at either [facility] ([place]) or to [facility] ([place], [place]) on 03/25/2024 or on 03/26/2024. Discharge time, 35 minutes. Of this time period, 18 minutes were spent in coordinating patient's discharge. Admission HPI Per Admitting Provider Vero is an 88-year-old female with PMH of lupus, tobacco use, TIAs, paroxysmal atrial fibrillation, HTN, and CKD stage IV. She presented on 03/16 at the behest of her PCP for progressive worsening of SOB/dyspnea. Patient believes that her symptoms originally started in December. She came to the ED on February 09, and had a workup done, but it was unremarkable. Since that time, her SOB with exertion has worsened, and she does occasionally feel SOB at rest. She also endorses wheezing, productive cough (clear sputum production), and orthopnea. Patient sleeps in the recliner. Patient lives by herself, and ambulates with a walker at baseline. No sick contacts. She manages her own medicine at home. She reports she took her regular morning medicine today, and her only recent change is that she was taken off of amlodipine recently. No recent change in diet. She reports that she watches her salt intake at home. Additionally, her right leg is increasingly swollen today, but she thinks it might have been from the way she was sitting. No prior history of DVT/PE. She does not have a prior history of heart failure, and is not currently on diuret ics. Patient reports that her SpO2 has been dropping to 87% with activity. Patient is a former tobacco cigarette smoker, but quit in October 2023. She denies any recent alcohol use. Patient is hypertensive at 172/70 at time of admission; vitals otherwise stable. ED course: DuoNeb 3 mL Solu-Medrol 125 mg IV Furosemide 20 mg IV ROS: Patient endorses lightheadedness when walking, progressive SOB at rest and with exertion, productive cough (clear sputum production), orthopnea, intermittent wheezing, conversational dyspnea, BELTRAN, "stitch" under the right breast, Patient denies fever, chills, night-sweats, syncope, recent falls, chest pain, chest palpitations, pleuritic CP, hemoptysis, or abdominal pain. Discharge Exam Constitutional General: comfortable, coherent, cooperative. Wide awake and alert. Not confused, lethargic, or obtunded. Patient speaks in complete, fluent, and articulate sentences without pause, interruption, cough, or wheeze. HEENT: NC/AT. EOMI, PERRL. No nystagmus, gaze paresis, anisocoria, miosis, mydriasis, hyphema, chemosis, scleral icterus, conjunctivitis, or pterygium. No otorrhea, no rhinorrhea. No pharyngeal discharge or erythema. Neck: Supple, no stridor, bruit, goiter, or hepatojugular reflux. Jugular venous pressure is estimated to be 8 cm above the sternal angle of Eulogio, which is typically 5 cm above the level of the right atrium. Hence, there is no jugular venous distention noted on discharge date 03/25/2024. Lymphatics: No pre-post auricular, anterior/posterior cervical, supraclavicular/infraclavicular, axillary, epitrochlear, or inguinal adenopathy. Chest: Symmetric rise and fall with respirations. Non-tender to palpation. Heart: RRR, S1 and S2 noted. No S3 or S4 summation gallop noted. No tripartite friction rub. Grade II/ early systolic murmur @ LLSB without radiation to the carotids, axilla, or back, and which remains invariant in regards to the respiratory cycle. Lungs: Clear to auscultation and percussion. No audible expiratory wheeze, egophony, pectoriloquy, increase in tactile fremitus, or flatness/dullness to percussion at the bases. Abdomen: Soft, non-tender, non-distended. No rebound, guarding, Corrales's sign, or organomegaly. Bowel sounds auscultated in all 4 quadrants. Extremities: No clubbing, cyanosis, or edema. 2+ pedal pulses bilaterally. Skin: No exanthem or enanthem or decubitus ulcer. Neurology: Alert and oriented in regards to person, place, time, and situation. DTR+ and symmetric. 5/5 motor strength in all 4 extremities, both proximally and distally. No myoclonus, tremors, or tics. Urology: No melissa catheter. No urethral discharge. Psychiatry: Appropriate affect. Smiles occasionally. No homicidal/suicidal ideation. Discharge Plan Discharge Items Patient Disposition: Transfer Custodial Fac Reason For Visit: PLEURAL EFFUSIONS Discharge Diagnosis: Bilateral pleural effusions Activity: Resume your previous activity Non-emergency contact: Primary Care Provider Call non-emergency contact if: you have any medication questions and your symptoms worsen Follow-up/Referrals: Eden Cummins MD [Primary Care Provider] - Diet: Heart Healthy, Low Fat and Low Sodium (2gm) Addtl Attending Provider Instructions: You were seen in the hospital for shortness of breath. You underwent a thoracentesis, a procedure which drained fluid from your lung. You felt improved following this. Fluid analysis was suspicious for a thick type of fluid called exudative effusion, with further studies including cytology and lipid levels pending but which will not be available for several days. It is recommended you follow-up with both your PCP and pulmonology. A CAT scan of your chest did not show evidence of pulmonary edema (a type of fluid usually related to heart failure in the lung tissue itself), but you did have some fluid accumulation in your legs and abdomen. You have been prescribed a low-dose of Lasix as noted below however if this makes you lightheaded dizzy or lowers your blood pressure below 110 please stop taking this medication and discuss this medicine further with your primary care physician. A CAT scan of your chest did not show any evidence of cancer however malignancy can cause accumulation of this type of fluid in some patients. Please follow-up with your primary care doctor, Dr. Eden Cummins ([place]) or farm equipment assembler for the final results of the fluid analysis at your follow-up appointment. You are seen by physical therapy after drainage of fluid from your lung. Your oxygenation and exertional tolerance was improved, but it was recommended you undergo additional strengthening at acute rehab. If you develop any new or worsening symptoms including fever, chills, sweats, chest pain, chest pressure, difficulty breathing, uncontrolled nausea/vomiting, rash, wheezing, passing out or nearly passing out, bleeding, black/bloody bowel movements, or other new or concerning symptoms please call your primary care physician, or call 911 for re-evaluation in the emergency department if you are very concerned. Pending Studies at Discharge: No Stand-Alone Forms: My [facility] Skilled Items Patient informed of condition?: Yes DNR: No Discharge Level of Care: Acute rehab Communicable Disease: No Discharge Prognosis: Stable Lines: None Urinary Catheter: No Medications and DC Order Prescriptions: Continued famotidine 20 mg tablet 20 mg PO DAILY aflibercept [Eylea HD] intravitreal Q5W tramadol 50 mg tablet 50 mg PO DAILY PRN (Reason: Pain) losartan 50 mg tablet 50 mg PO BID psyllium [Metamucil (sugar)] PO DAILY bupropion HCl 100 mg tablet sustained-release 12 hr 100 mg PO BID rosuvastatin 20 mg tablet 20 mg PO HS carvedilol 12.5 mg tablet 25 mg PO BID aspirin 81 mg tablet,delayed release (DR/EC) 81 mg PO BID Admission Data Admit Date/Time: 03/16/24 17:41 Attending Provider: Sunny Kimbrough Admit Provider: Joel Navarro Primary Care Provider: Eden Cummins Other Providers: Joel Navarro; Emma Levi; [facility] Hospital Stay Data Consultations 03/16/24 16:24 ED Decision to Admit Stat 03/16/24 19:17 Consult Pulmonology Routine Diagnostic Imagining Performed 03/16/24 16:22 US venous doppler LE RT Stat 03/16/24 16:55 CT chest diagnostic wo con Stat 03/17/24 08:21 US point of care ultrasound Urgent Pending Results Patient Have Any Pending Studies at Discharge: No Discharge Instructions Given to Patient (Per Discharging Provider) You were seen in the hospital for shortness of breath. You underwent a thoracentesis, a procedure which drained fluid from your lung. You felt improved following this. Fluid analysis was suspicious for a thick type of fluid called exudative effusion, with further studies including cytology and lipid levels pending but which will not be available for several days. It is recommended you follow-up with both your PCP and pulmonology. A CAT scan of your chest did not show evidence of pulmonary edema (a type of fluid usually related to heart failure in the lung tissue itself), but you did have some fluid accumulation in your legs and abdomen. You have been prescribed a low-dose of Lasix as noted below however if this makes you lightheaded dizzy or lowers your blood pressure below 110 please stop taking this medication and discuss this medicine further with your primary care physician. A CAT scan of your chest did not show any evidence of cancer however malignancy can cause accumulation of this type of fluid in some patients. Please follow-up with your primary care doctor, Dr. Eden Cummins ([place], [place]) or farm equipment assembler for the final results of the fluid analysis at your follow-up appointment. You are seen by physical therapy after drainage of fluid from your lung. Your oxygenation and exertional tolerance was improved, but it was recommended you undergo additional strengthening at acute rehab. If you develop any new or worsening symptoms including fever, chills, sweats, chest pain, chest pressure, difficulty breathing, uncontrolled nausea/vomiting, rash, wheezing, passing out or nearly passing out, bleeding, black/bloody bowel movements, or other new or concerning symptoms please call your primary care physician, or call 911 for re-evaluation in the emergency department if you are very concerned. Total Time Total Time Spent Total Time Spent (In Minutes): 35 minutes Coding Level of Care Code 74632 INP/OBS DISCH >30 MIN Diagnoses Pleural effusion J90 Edema of right lower extremity R60.0
--- NOTE | 2024-03-26 15:25 | Hospitalist Progress Note ---
Date of Service March 26, 2024 Assessment & Plan (1) Pleural effusion: (2) Edema of right lower extremity: Plan 88-years old right-hand predominant female with PMH of FULL CODE @ home, lupus, former tobacco use with no subsequent diagnosis of COPD, not on home O2 or home steroids, CVD s/p TIA, paroxysmal AFIB, chronic diastolic CHF with preserved LV EF > 70% and grade I LV diastolic dysfunction (as noted on 03/17/2024, 7:28am TTE, CARDS Dr. Miguel Angel Britton), HTN, and CKD stage IV with baseline creatinine range, 1.91 - 2.45 (07/11/2020 - 02/10/2024), who presented to [facility] ER on 03/16/2024 at the behest of her PCP Dr. Eden Cummins ([place]) for progressive worsening of SOB/dyspnea. Patient believes that her symptoms originally started in December 2023; subsequently, patient first came to [facility] ER on 02/10/2024, and had a workup done, but it was unremarkable. Since that time, patient's SOB with exertion has worsened, and occasionally, patient feels SOB at rest. Patient also endorsed wheezing, productive cough (clear sputum production), and orthopnea. 1. Exertional Dyspnea, RESOLVED. R>L Pleural Effusions. - BIofire negative Has had some right greater than left leg swelling, orthopnea, shortness of breath all consistent with CHF however BNP is normal and is relatively minimal pulmonary edema component. Chronic effusions for which pulm has been consulted for diagnostic/therapeutic thoracentesis - CXR R>L pleural effusions, relatively minimal 1+ bilateral DEDRA CTchest: No focal consolidation. Compressive atelectasis. Moderate to large bilateral pleural effusion. No pneumothorax. No suspicious lymphadenopathy. No focal lesions are seen. - S/p thoracentesis with lung reexpansion and clinical improvement in breathing. Cloudy/yellow fluid. Pleural fluid protein/serum protein ratio suggestive of exudative effusion. LDH does not meet Light's criteria. Analysis pending. ? Chylothorax versus malignant exudative - Right lower extremity edema, Relatively minimal left-sided edema. Doppler without evidence of DVT - TTE 03/17/2024: Hyperdynamic. EF 70%. Grade 1 diastolic dysfunction. Small noncircumferential pericardial effusion without hemodynamic compromise. - Remain w/ concern for maligancy, cytology pending. Suspect some chronic diastolic CHF, although currently compensated and without pulm edema. ECHO hyperdynamic.While she does have some total body fluid overload she was not with significant pulmonary edema or JVD and w/ concern for orthostasis. 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 Pleural fluid path pending 2. Acute RLL CAP, RESOLVED. - Breathing comfortably with RR 16, O2 sat 96% on room air - MRSA nares negative - s/p levofloxacin 750mg PO x 1 dose ( - Observe OFF antibiotics. 3. Pericardial effusion, ASYMPTOMATIC. Anterior, small, without hemodynamic compromise Lyme negative No chest pain, no evidence of pericarditis/myocarditis - Observe. Other chronic stable medical conditions include: 4. HTN - well-controlled . 5. HLD asymptomatic on home-scheduled rosuvastatin 20mg PO 6. GERD asymptomatic on home-scheduled famotidine 20mg PO daily while in [facility] from 03/16/2024 to 03/24/2024. Patient will continue this home-scheduled medication after patient arrives at either [facility] ([place], [place]) or to [facility] ([place], [place]) on 03/25/2024 or on 03/26/2024. Patient is agreeable to discharge to SNF, pending authorization Admission and Anticipated Discharge Date Admission Date: March 16, 2024 Subjective Patient seen and examined today, no new complaints, for SNF authorization Review of Systems Review of Systems: All systems reviewed are negative, apart from the ones contained in the history. Physical Exam Physical Exam: The patient is awake, alert and oriented 3, well developed and well nourished, normocephalic and atraumatic, lying in bed and in no acute distress. HEENT--PERRL, EOMI, mucous membranes and oropharynx mildly dry Neck--supple. No JVD. No bruits. Thyroid normal, trachea midline, no adenopathy. Heart--normal S1 and S2. No murmurs, rubs or gallops. Lungs--clear bilaterally, no respiratory distress, no accessory muscle use. Abdomen--normal bowel sounds and soft. Extremities--no cyanosis or clubbing. No edema. Dermatologic--normal skin turgor, normal color, no abnormal lymph nodes, no rash. Neurologic--cranial nerves II through XII grossly intact. Rheumatologic--normal range of motion. Psychiatric--normal affect. Results & Data Results & Data Vital Signs (Past 12 Hours) Vital Signs Temp Pulse Pulse Resp BP BP Pulse Ox 03/26/24 14:01 59 L 03/26/24 11:36 97.2 F L 63 16 139/65 96 03/26/24 07:56 62 165/69 H 177/70 H 03/26/24 07:34 97.3 F L 67 16 174/82 H 95 03/26/24 07:00 03/26/24 06:45 68 03/26/24 03:40 97.3 F L 71 18 149/70 H 94 Pulse Ox O2 Del Method O2 Del Method 03/26/24 14:01 03/26/24 11:36 Room Air 03/26/24 07:56 03/26/24 07:34 Room Air 03/26/24 07:00 95 Room Air 03/26/24 06:45 03/26/24 03:40 Room Air PG Care Time/CCT Total # of Minutes Spent Total Time Spent with Patient: Total time spent is greater than 50% in coordination of care (as documented) at patient's floor/unit and/or counseling patient: Coding Level of Care Code 08317 SUB INP/OBS CARE 2/35MIN Diagnoses Pleural effusion J90 Edema of right lower extremity R60.0 Time Spent (min) 35
[2024-03-27 10:55] VITALS: BP 155/67; RESP 22; TEMP 98.1; O2SAT 97
--- NOTE | 2024-03-27 12:56 | Discharge Summary ---
Date of Service March 27, 2024 Admission HPI Per Admitting Provider Vero is an 88-year-old female with PMH of lupus, tobacco use, TIAs, paroxysmal atrial fibrillation, HTN, and CKD stage IV. She presented on 03/16 at the behest of her PCP for progressive worsening of SOB/dyspnea. Patient believes that her symptoms originally started in December. She came to the ED on February 09, and had a workup done, but it was unremarkable. Since that time, her SOB with exertion has worsened, and she does occasionally feel SOB at rest. She also endorses wheezing, productive cough (clear sputum production), and orthopnea. Patient sleeps in the recliner. Patient lives by herself, and ambulates with a walker at baseline. No sick contacts. She manages her own medicine at home. She reports she took her regular morning medicine today, and her only recent change is that she was taken off of amlodipine recently. No recent change in diet. She reports that she watches her salt intake at home. Additionally, her right leg is increasingly swollen today, but she thinks it might have been from the way she was sitting. No prior history of DVT/PE. She does not have a prior history of heart failure, and is not currently on diuretics. Patient reports that her SpO2 has been dropping to 87% with activity. Patient is a former tobacco cigarette smoker, but quit in October 2023. She denies any recent alcohol use. Patient is hypertensive at 172/70 at time of admission; vitals otherwise stable. ED course: DuoNeb 3 mL Solu-Medrol 125 mg IV Furosemide 20 mg IV ROS: Patient endorses lightheadedness when walking, progressive SOB at rest and with exertion, productive cough (clear sputum production), orthopnea, intermittent wheezing, conversational dyspnea, BELTRAN, "stitch" under the right breast, Patient denies fever, chills, night-sweats, syncope, recent falls, chest pain, c hest palpitations, pleuritic CP, hemoptysis, or abdominal pain. Admission Exam (Per Admitting) Constitutional The patient is awake, alert and oriented 3, well developed and well nourished, normocephalic and atraumatic, lying in bed and in no acute distress. HEENT--PERRL, EOMI, mucous membranes and oropharynx mildly dry Neck--supple. No JVD. No bruits. Thyroid normal, trachea midline, no adenopathy. Heart--normal S1 and S2. No murmurs, rubs or gallops. Lungs--clear bilaterally, no respiratory distress, no accessory muscle use. Abdomen--normal bowel sounds and soft. Extremities--no cyanosis or clubbing.mild edema. Dermatologic--normal skin turgor, normal color, no abnormal lymph nodes, no rash. Neurologic--cranial nerves II through XII grossly intact. Rheumatologic--normal range of motion. Psychiatric--normal affect. Discharge Data Consultations 03/16/24 16:24 ED Decision to Admit Stat 03/16/24 19:17 Consult Pulmonology Routine Hospital Course (1) Pleural effusion: (2) Edema of right lower extremity: Plan 88-years old right-hand predominant female with PMH of FULL CODE @ home, lupus, former tobacco use with no subsequent diagnosis of COPD, not on home O2 or home steroids, CVD s/p TIA, paroxysmal AFIB, chronic diastolic CHF with preserved LV EF > 70% and grade I LV diastolic dysfunction (as noted on 03/17/2024, 7:28am TTE, CARDS Dr. Miguel Angel Britton), HTN, and CKD stage IV with baseline creatinine range, 1.91 - 2.45 (07/11/2020 - 02/10/2024), who presented to [facility] on 03/16/2024 at the behest of her PCP Dr. Eden Cummins ([place]) for progressive worsening of SOB/dyspnea. Patient believes that her symptoms originally started in December 2023; subsequently, patient first came t o [facility] on 02/10/2024, and had a workup done, but it was unremarkable. Since that time, patient's SOB with exertion has worsened, and occasionally, patient feels SOB at rest. Patient also endorsed wheezing, productive cough (clear sputum production), and orthopnea. 1. Exertional Dyspnea, RESOLVED. R>L Pleural Effusions. - BIofire negative Has had some right greater than left leg swelling, orthopnea, shortness of breath all consistent with CHF however BNP is normal and is relatively minimal pulmonary edema component. Chronic effusions for which pulm has been consulted for diagnostic/therapeutic thoracentesis - CXR R>L pleural effusions, relatively minimal 1+ bilateral DEDRA CTchest: No focal consolidation. Compressive atelectasis. Moderate to large bilateral pleural effusion. No pneumothorax. No suspicious lymphadenopathy. No focal lesions are seen. - S/p thoracentesis with lung reexpansion and clinical improvement in breathing. Cloudy/yellow fluid. Pleural fluid protein/serum protein ratio suggestive of exudative effusion. LDH does not meet Light's criteria. Analysis pending. ? Chylothorax versus malignant exudative - Right lower extremity edema, Relatively minimal left-sided edema. Doppler without evidence of DVT - TTE 03/17/2024: Hyperdynamic. EF 70%. Grade 1 diastolic dysfunction. Small noncircumferential pericardial effusion without hemodynamic compromise. - Remain w/ concern for maligancy, cytology pending. Suspect some chronic diastolic CHF, although currently compensated and without pulm edema. ECHO hyperdynamic.While she does have some total body fluid overload she was not with significant pulmonary edema or JVD and w/ concern for orthostasis. Defer lasix today, intermediate --> PO lasix 20mg 3 times weekly p.o., hold this if orthostasis worsens or creatinine jumps. Pleural fluid path pending 2. Acute RLL CAP, RESOLVED. - Breathing comfortably with RR 16, O2 sat 96% on room air - MRSA nares negative - s/p levofloxacin 750mg PO x 1 dose ( - Observe OFF antibiotics. 3. Pericardial effusion, ASYMPTOMATIC. Anterior, small, without hemodynamic compromise Lyme negative No chest pain, no evidence of pericarditis/myocarditis - Observe. Other chronic stable medical conditions include: 4. HTN - well-controlled . 5. HLD asymptomatic on home-scheduled rosuvastatin 20mg PO 6. GERD asymptomatic on home-scheduled famotidine 20mg PO daily while in [facility] from 03/16/2024 to 03/24/2024. Patient will continue this home-scheduled medication after patient arrives at either [facility] ([place]) or to [facility] ([place]) on 03/25/2024 or on 03/26/2024. 7 Mild edema On the hand, mostly dependent edema patient refuses low dose diuretic, citing her poor kidney function Patient is agreeable to discharge to home with home health. SNF auth was denied Coding Level of Care Code 69132 INP/OBS DISCH >30 MIN Diagnoses Pleural effusion J90 Edema of right lower extremity R60.0 Time Spent (min) 35
[2024-03-27 14:45] VITALS: PULSE 70
== END 2024-03-27 17:14 | disposition home health service (06) | DRG 186 ==
LOC: SUATTDRO → ED 13:21 → 2N 17:41 → SUATTDRO 17:41 → 2N 20:42

== ENCOUNTER 2024-06-05 13:04 | Inpatient (IN) ==
--- NOTE | 2024-06-05 13:13 | Emergency Department Note ---
Impression & Plan Pleural effusion, Acute pericardial effusion, Abdominal pain, Abdominal ascites ED Provider Note CHIEF COMPLAINT: Swelling HISTORY OF PRESENTING ILLNESS: The patient is an 88-year-old female who arrives to the emergency department for evaluation of abdominal swelling. She reports the swelling extends into her groin, and has been ongoing since March. She states she takes a diuretic every other day. She reports she does have a history of congestive heart failure, and stage IV CKD. She states she does feel slightly short of breath, however denies chest pain. REVIEW OF SYSTEMS: See HPI for pertinent positives and pertinent negatives. ALLERGIES: See below MEDICATIONS: See below PAST MEDICAL HISTORY: See below PHYSICAL EXAM: VITALS: Vitals are noted on the nurse's note and reviewed by myself. Vital signs stable. GENERAL: 88-year-old female, in no acute distress, nondiaphoretic. SKIN: The skin was without rashes, erythema, edema, or bruising. HEAD: Normocephalic atraumatic. NECK: Supple without nuchal rigidity. No JVD. HEART: Regular rate and rhythm without murmurs gallops or rubs. LUNGS: Coarse lung sounds bilateral bases, no retractions or accessory muscle use. ABDOMEN: Positive bowel sounds x 4. Soft, diffusely tender to palpation lower abdomen. No rebound tenderness or guarding. MUSCULOSKELETAL: No muscle atrophy, erythema, or edema noted. Strength 5/5 throughout. NEURO: Patient was alert and oriented to person place and time. No focal neurological deficits. DIFFERENTIAL DIAGNOSIS: ED COURSE AND MEDICAL DECISION MAKING: MONITOR: Continuous nuclear monitoring technician: Order was placed for continuous nuclear monitoring technician. Patient was placed on the nuclear monitoring technician and continuous pulse ox. Patient was noted to be in normal sinus rhythm at an initial rate of 81 bpm per my interpretation. EKG: EKG was interpreted by myself as sinus rhythm, rate of 67 bpm, no ST elevation, depression, or ectopy. Previous for comparison from March 2024 shows no concerning changes. INTERPRETATION OF LABS: I interpreted the labs with full lab results as below in the lab section of this note. Pertinent lab results discussed in the MDM section below. INTERPRETATION OF IMAGING: Imaging studies were interpreted by myself and read by radiology as per the imaging section of this note. CHRONIC MEDICAL/SOCIAL CONDITIONS AFFECTING CARE: CKD stage IV, paroxysmal A- fib, congestive heart failure MDM SUMMARY: The patient is a pleasant 88-year-old female who arrives to the emergency department for evaluation of the above-stated complaint. A saline lock was established, CBC, CMP, troponin, PT/INR, PTT, BNP were obtained. Lab work shows no leukocytosis, no anemia. CMP shows elevated BUN at 44, creatinine 2.7, consistent with patient's baseline. Troponin 3.4, BNP 168. Urinalysis not concerning for infection. EKG interpreted as above. One-view chest x-ray shows bilateral pulmonary effusions. CT imaging of the abdomen and pelvis was obtained without IV contrast due to the patient's history of CKD, and elevated kidney function. CT imaging shows moderate to large right and moderate left pleural effusions, with small pericardial effusion present. Anasarca is noted with small amount of ascites within the abdomen and pelvis. There is also finding of a 3 cm abdominal aortic aneurysm, marked right renal atrophy, with no hydronephrosis. I spoke with the patient regarding the findings, she will require admission. Case management was contacted regarding the need for admission. The patient will be admitted to the [facility], Dr. Grace. Please refer to Dr. Grace's documentation for further patient workup and care. DIAGNOSIS: Abdominal pain, ascites, pleural effusion, pericardial effusion The patient's case was discussed with Dr. Flores, who agreed with my evaluation and treatment plan. The chart was completed utilizing [employer] Speech voice recognition software. Grammatical errors, random word insertions, pronoun errors, and incomplete sentences are an occasional consequence of this system due to software limitations, ambient noise, and hardware issues. Any formal questions or concerns about the content, text, or information contained within the body of this dictation should be directly addressed to the provider for clarification. TREATMENT PLAN/DISCHARGE INSTRUCTIONS: Admit to [facility]. Past Med/Surg History Problem List (Updated 06/05/24 @ 21:36 by SAMIR Thurston) Abdominal ascites (Acute) Abdominal pain (Acute) Acute pericardial effusion (Acute) Pleural effusion (Acute) Acute on chronic diastolic heart failure Ex-smoker Short of breath on exertion Vitamin D deficiency Chronic kidney disease, stage 4 (severe) Peripheral vascular disease Accelerated hypertension Hypertensive urgency Paroxysmal A-fib Hypertension (Acute) Headache (Acute) Visual changes (Acute) Asymptomatic carotid artery stenosis Sacroiliac dysfunction Tobacco smoker, 20 cigarettes or fewer per day (Acute) Chronic interstitial lung disease Microscopic hematuria Memory impairment (Acute) Medical History Paige's cyst Bilateral pleural effusion JAVED (dyspnea on exertion) Edema of right lower extremity Pleural effusion Atrial fibrillation Lupus (systemic lupus erythematosus) Acute exacerbation of chronic obstructive pulmonary disease Hypoxia CKD (chronic kidney disease) stage 4, GFR 15-29 ml/min Depression TIA (transient ischemic attack) Hyperlipidemia Hypertension Surgical History H/O sinus surgery H/O excision of lamina of cervical vertebra for decompression of spinal cord Social History Smoking Status: Former smoker Tobacco Type: Cigarettes Cigarettes Per Day: 5-8; Do You Dip or Chew Tobacco: No; Hx Alcohol Use: Yes Hx Substance Use: No Preferred Language: Burkinan Communication Ability: Effective 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 Beliefs That Will Affect Care: None marital status: / Current Living Situation: Alone Current Living Situation Comment: elderly apartment complex current occupational status: retired Feels Safe at Home: Yes Safety Concerns: Feels Safe At This Time Assistive Devices: Glasses and Walker Allergies Allergies Allergy/AdvReac Type Severity Reaction Status Date / Time Penicillins Allergy Severe Anaphylaxis, Unverified 05/23/24 11:03 throat swelling, hives Iodinated Contrast Media Allergy Unknown Causes Unverified 06/05/24 16:03 issues with kidneys hydralazine Allergy Unknown Verified 05/23/24 11:03 latex AdvReac Intermediate Rash Verified 05/23/24 11:03 codeine AdvReac Unknown Unknown Unverified 05/23/24 11:03 Tetanus Vaccines and Toxoid AdvReac Unknown Unknown Unverified 05/23/24 11:03 Home Meds Home Medications Medication Instructions Recorded Confirmed rosuvastatin 20 mg tablet 20 mg PO HS 07/11/20 06/05/24 aspirin 81 mg tablet,delayed 81 mg PO DAILY 08/22/23 06/05/24 release bupropion HCl 150 mg tablet,12 hr 150 mg PO BID 06/05/24 06/05/24 sustained-release carvedilol 25 mg tablet 25 mg PO BID 06/05/24 06/05/24 furosemide 40 mg tablet 40 mg PO Q OTHER DAY 06/05/24 06/05/24 losartan 50 mg tablet 50 mg PO DAILY 06/05/24 06/05/24 Results & Data (ED) Vital Signs Vital Signs - 24 hr 06/05/24 13:07 06/05/24 13:36 06/05/24 14:04 Temperature 36.7 C Temperature Source Temporal Artery Scan Pulse Rate 81 67 Pulse Rate [Apical] 58 L Respiratory Rate 18 22 Respiratory Effort / Characteristics Non-Labored Spontaneous Non-Labored Spontaneous Respiratory Depth Normal Normal Respiratory Pattern Regular Regular Blood Pressure 187/77 H Blood Pressure [Right Arm] 180/79 H Blood Pressure Mean 113 Blood Pressure Mean [Right Arm] 112 Pulse Oximetry 96 97 Oxygen Delivery Method Room Air Room Air Sepsis Recent Fever Within 48 Hours No Sepsis New/Unexplained Change in Mental Status N/A Sepsis Action Taken by Nursing No Action Required 06/05/24 15:59 06/05/24 17:28 06/05/24 18:00 Temperature Temperature Source Pulse Rate Pulse Rate [Apical] 57 L 61 Respiratory Rate 24 20 Respiratory Effort / Characteristics Respiratory Depth Respiratory Pattern Blood Pressure Blood Pressure [Right Arm] 203/89 H 227/89 H Blood Pressure Mean Blood Pressure Mean [Right Arm] 127 135 Pulse Oximetry 98 97 Oxygen Delivery Method Room Air Room Air Room Air Sepsis Recent Fever Within 48 Hours Sepsis New/Unexplained Change in Mental Status Sepsis Action Taken by Nursing 06/05/24 18:10 Temperature Temperature Source Pulse Rate 61 Pulse Rate [Apical] Respiratory Rate Respiratory Effort / Characteristics Respiratory Depth Respiratory Pattern Blood Pressure Blood Pressure [Right Arm] Blood Pressure Mean Blood Pressure Mean [Right Arm] Pulse Oximetry Oxygen Delivery Method Sepsis Recent Fever Within 48 Hours Sepsis New/Unexplained Change in Mental Status Sepsis Action Taken by Jail Medications Current Medication List: was personally reviewed by me Laboratory Data Attestation: I reviewed the patient's lab results. 06/05/24 13:50 06/05/24 13:50 Lab Results 06/05/24 06/05/24 06/05/24 Range/Units 13:50 15:56 16:47 WBC 8.12 (4.8-10.8) K/ul RBC 4.37 (4.20-5.40) M/uL Hgb 12.5 (12.0-16.0) g/dl Hct 39.3 (37.0-47.0) % MCV 89.9 (80.0-100.0) fL MCH 28.6 (25.0-34.0) pg MCHC 31.8 L (32.0-36.0) g/dL RDW Std Deviation 47.4 H (36.4-46.3) fL RDW Coeff of Gabriela 14.4 (11.5-14.5) % Plt Count 228 (130-400) K/uL MPV 10.2 (9.4-12.4) fL Immature Gran % (Auto) 0.2 % Neut % (Auto) 63.0 % Lymph % (Auto) 23.4 % [place] % (Auto) 8.3 % Eos % (Auto) 4.6 % Baso % (Auto) 0.5 % Neut # (Auto) 5.12 (1.40-6.50) K/uL Lymph # (Auto) 1.90 (1.20-3.40) K/uL [place] # (Auto) 0.67 H (0.11-0.59) K/uL Eos # (Auto) 0.37 (0.00-0.50) K/uL Baso # (Auto) 0.04 (0.00-0.20) K/uL Immature Gran # (Auto) 0.02 (0.01-0.20) K/uL PT Cancelled 11.6 INR Cancelled 1.1 APTT Cancelled 27 PTT Ratio Cancelled 1.0 Sodium 140 (136-145) mmol/L Potassium 4.1 (3.5-5.1) mmol/L Chloride 107 (98-107) mmol/L Carbon Dioxide 27 (21-32) mmol/L Anion Gap 6 (3-11) BUN 44 H (6-23) mg/dl Creatinine 2.70 H (0.6-1.2) mg/dl Est Cr Clr Drug Dosing 12.4 ml/min eGFR 16.66 BUN/Creatinine Ratio 16.3 (10-20) Glucose 98 (70-99(Fasting)) mg/dl Calcium 8.7 (8.6-10.3) mg/dl Total Bilirubin 0.6 (0.2-1.0) mg/dl AST 17 (13-39) U/L ALT 14 (7-52) U/L Alkaline Phosphatase 54 (34-104) U/L Troponin I High Sens 3.4 (0-14) pg/ml Total Protein 6.1 (6.0-8.3) gm/dl Albumin 3.5 (3.4-5.0) gm/dl Globulin 2.6 (2.5-4.0) gm/dl Albumin/Globulin Ratio 1.3 (0.9-2) Urine Color Yellow Urine Appearance Clear (Clear) Urine pH 5.5 (4.5-7.5) Ur Specific [place] 1.016 (1.000-1.030) Urine Protein Trace H (Negative) Urine Glucose (UA) Negative (Negative) Urine Ketones Negative (Negative) Urine Blood Negative (Negative) Urine Nitrite Negative (Negative) Urine Bilirubin Negative (Negative) Urine Urobilinogen Negative (Negative) Ur Leukocyte Esterase Negative (Negative) Urine WBC (Auto) 0-5 (0-5) /hpf Urine RBC (Auto) 3-5 H (0-2) /hpf U Hyaline Cast (Auto) 3-5 H (0-2) /lpf U Epithel Cells (Auto) 6-10 H (0-2) /hpf Urine Bacteria (Auto) None Seen (None Seen) Administered Medications Discontinued Medications Furosemide (Furosemide 40 Mg/4 Ml Vial) 40 mg IV ONE ONE Stop: 06/05/24 18:16 Last Admin: 06/05/24 18:15 Dose: 40 mg Documented By: AuspherixAlfredo Imaging Data Attestation: I personally reviewed and interpreted this imaging study as follows: Radiologist's Impression: Chest X-Ray 06/05/24 13:17 XR chest 1V portable CLINICAL HISTORY: Dyspnea COMPARISON STUDY: 05/09/2024 FINDINGS: There is mild cardiomegaly with mild pulmonary vascular congestion. There are bilateral pleural effusions and associated lung base consolidation, right greater than left. No pneumothorax. IMPRESSION: CHF with bilateral pleural effusions and associated lung base consolidation. ACT 112: Negative or not required by law. Electronically signed by: Ward Ellison M.D. 06/05/2024 2:39 PM Abdomen/Pelvis CT 06/05/24 14:52 CT OF THE ABDOMEN AND PELVIS WITHOUT CONTRAST CLINICAL HISTORY: TTP diffuse low abdomen COMPARISON STUDY: CT of the abdomen and pelvis September 26, 2018. TECHNIQUE: Axial images of the abdomen and pelvis were obtained without IV contrast. Images were reviewed in the axial, sagittal, and coronal planes. Automated exposure control was utilized for the study. A dose lowering technique was utilized adhering to the principles of ALARA. FINDINGS: Moderate to large and moderate left pleural effusions are partially imaged. Associated opacities favor atelectasis. There is a small pericardial effusion. Body wall edema is present. There is no pneumatosis, free air or portal venous gas. Evaluation of the abdomen and pelvis is suboptimal on this unenhanced examination. A small amount of ascites within the abdomen and pelvis is present. Unenhanced images of the liver, spleen, adrenal glands and pancreas are unremarkable. There is marked right renal atrophy. There is mild left renal cortical thinning. There is no hydronephrosis. There is no evidence for a bowel obstruction. Colonic diverticulosis is noted without evidence for acute diverticulitis. No abdominal or pelvic lymphadenopathy is present. There are no fluid collections within the abdomen or pelvis. 3 cm abdominal aortic aneurysm is noted. Aneurysmal dilatation begins just inferior to the takeoff of the renal arteries. There is extensive aortoiliac atherosclerotic plaque. No acute fractures within the lumbar spine, pelvis or hips are identified. Proximal right femoral internal fixation is noted. 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 IMPRESSION: 1. Moderate to large right and moderate left pleural effusions, partially imaged. Small pericardial effusion. 2. Anasarca. Small amount of ascites within the abdomen and pelvis. 3. No bowel obstruction. No bowel wall thickening on unenhanced exam. Colonic diverticulosis without evidence for acute diverticulitis. 4. 3 cm abdominal aortic aneurysm. 5. Marked right renal atrophy. No hydronephrosis. ACT 112: Negative or not required by law. Electronically signed by: Donn Santiago M.D. 06/05/2024 3:30 PM Discharge Plan Visit Data Chief Complaint: Swelling/Edema to Extremity Stated Complaint: SWELLING OF LOWER ABDOMEN ED Provider: Chuck Flores ED Midlevel Provider: Giulia Luque Discharge Problem: Pleural effusion, Acute pericardial effusion, Abdominal pain, Abdominal ascites Patient Disposition: Admitted As Inpatient Discharge Instructions Interventions: ED Discharge Assessment Last Done: 06/05/24 20:30
[2024-06-05 14:40] LABS: Albumin Level 3.5 gm/dl (3.4-5.0); Bilirubin,Total 0.6 mg/dl (0.2-1.0); Calcium 8.7 mg/dl (8.6-10.3); Potassium 4.1 mmol/L (3.5-5.1)
--- NOTE | 2024-06-05 14:41 | XRay Report ---
XR chest 1V portable CLINICAL HISTORY: Dyspnea COMPARISON STUDY: 05/09/2024 FINDINGS: There is mild cardiomegaly with mild pulmonary vascular congestion. There are bilateral ple ural effusions and associated lung base consolidation, right greater than left. No pneumothorax. IMPRESSION: CHF with bilateral pleural effusions and associated lung base consolidation. ACT 112: Negative or not required by law. Electronically signed by: Ward Ellison M.D. 06/05/2024 2:39 PM
[2024-06-05 14:46] LABS: Albumin Globulin Ratio 1.3 (0.9-2); BUN Creatinine Ratio 16.3 (10-20); Creatinine Clr Calc Pharmacy 12.4 ml/min; Globulin 2.6 gm/dl (2.5-4.0); Total Protein 6.1 gm/dl (6.0-8.3)
[2024-06-05 14:48] LABS: Troponin I High Sensitivity 3.4 pg/ml (0-14)
[2024-06-05 14:50] LABS: Basophils # (auto) 0.04 K/uL (0.00-0.20); Basophils % (auto) 0.5 %; Eosinophils # (auto) 0.37 K/uL (0.00-0.50); Eosinophils % (auto) 4.6 %; Hematocrit (blood only) 39.3 % (37.0-47.0); Hemoglobin 12.5 g/dl (12.0-16.0); Immature Granulocytes # (auto) 0.02 K/uL (0.01-0.20); Immature Granulocytes % (auto) 0.2 %; Lymphocytes % (auto) 23.4 %; Mean Corpuscular Hemoglobin 28.6 pg (25.0-34.0); Mean Corpuscular Hgb Conc 31.8 g/dL (32.0-36.0); Mean Corpuscular Volume 89.9 fL (80.0-100.0); Mean Platelet Volume 10.2 fL (9.4-12.4); Monocytes # (auto) 0.67 K/uL (0.11-0.59); Monocytes % (auto) 8.3 %; Neutrophils # (auto) 5.12 K/uL (1.40-6.50); Platelet Count 228 K/uL (130-400); RDW Coefficient of Variation 14.4 % (11.5-14.5); RDW Standard Deviation 47.4 fL (36.4-46.3); Red Blood Count 4.37 M/uL (4.20-5.40); White Blood Count 8.12 K/ul (4.8-10.8)
--- NOTE | 2024-06-05 15:18 | Electrocardiogram Report ---
Test Reason : Blood Pressure : */* mmHG Vent. Rate : 67 BPM Atrial Rate : * BPM P-R Int : * ms QRS Dur : 76 ms QT Int : 430 ms P-R-T Axes : * -18 45 degrees QTcB Int : 454 ms Sinus rhythm Low voltage QRS Septal infarct (cited on or before 11-Jul-2020) Abnormal ECG When compared with ECG of 18-Mar-2024 11:14, No significant change Confirmed by Leif Peters ([id number]) on 06/05/2024 3:17:27 PM Referred By: REFERRED SELF Confirmed By: Leif Peters
--- NOTE | 2024-06-05 15:32 | CT Scan Report ---
CT OF THE ABDOMEN AND PELVIS WITHOUT CONTRAST CLINICAL HISTORY: TTP diffuse low abdomen COMPARISON STUDY: CT of the abdomen and pelvis September 26, 2018. TECHNIQUE: Axial images of the abdomen and pelvis were obtained without IV contrast. Images were revi ewed in the axial, sagittal, and coronal planes. Automated exposure control was utilized for the kalyn dy. A dose lowering technique was utilized adhering to the principles of ALARA. FINDINGS: Moderate to large and moderate left pleural effusions are partially imaged. Associated opac ities favor atelectasis. There is a small pericardial effusion. Body wall edema is present. There is no pneumatosis, free air or portal venous gas. Evaluation of the abdomen and pelvis is suboptimal on this unenhanced examination. A small amount of ascites within the abdomen and pelvis is present. Unen hanced images of the liver, spleen, adrenal glands and pancreas are unremarkable. There is marked rig ht renal atrophy. There is mild left renal cortical thinning. There is no hydronephrosis. There is no evidence for a bowel obstruction. Colonic diverticulosis is noted without evidence for acute diverti culitis. No abdominal or pelvic lymphadenopathy is present. There are no fluid collections within the abdomen or pelvis. 3 cm abdominal aortic aneurysm is noted. Aneurysmal dilatation begins just inferi or to the takeoff of the renal arteries. There is extensive aortoiliac atherosclerotic plaque. No acu te fractures within the lumbar spine, pelvis or hips are identified. Proximal right femoral internal fixation is noted. 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 IMPRESSION: 1. Moderate to large right and moderate left pleural effusions, partially imaged. Small pericardial e ffusion. 2. Anasarca. Small amount of ascites within the abdomen and pelvis. 3. No bowel obstruction. No bowel wall thickening on unenhanced exam. Colonic diverticulosis without evidence for acute diverticulitis. 4. 3 cm abdominal aortic aneurysm. 5. Marked right renal atrophy. No hydronephrosis. ACT 112: Negative or not required by law. Electronically signed by: Donn Santiago M.D. 06/05/2024 3:30 PM
[2024-06-05 16:16] LABS: Appearance Urine Clear (Clear); Bacteria Urine Automated None Seen (None Seen); Bilirubin Urine Negative (Negative); Blood Urine Negative (Negative); Color Urine Yellow; Glucose Urine UA Negative (Negative); Ketones Urine Negative (Negative); Leukocyte Esterase Urine Negative (Negative); Nitrite Urine Negative (Negative); Protein Urine Trace (Negative); Specific Gravity Urine 1.016 (1.000-1.030); Urobilinogen Urine Negative (Negative); WBC Urine Automated 0-5 /hpf (0-5); pH Urine 5.5 (4.5-7.5)
--- NOTE | 2024-06-05 17:31 | History & Physical Report ---
Date of Service June 05, 2024 Assessment & Plan (1) Acute on chronic diastolic heart failure: (2) Chronic kidney disease, stage 4 (severe): (3) Bilateral pleural effusion: (4) Peripheral vascular disease: (5) Chronic interstitial lung disease: (6) Memory impairment: Plan Vero is an 88-year-old woman with CKD stage IV, HFpEF, chronic bilateral pleural effusions and chronic dyspnea. She presented with increasing lower abdominal swelling and tenderness as well as increased dyspnea. She is found to have mild acute on chronic HFpEF with total body volume overload: moderate right pleural effusion, small amount of ascites, anasarca She will need diuresis with IV medications and right-sided thoracentesis for comfort/dyspnea, Dr. Levi has considered Pleurx for palliation of her symptoms in the past She is followed by cardiology Dr. Rondon recent echocardiogram this year showed normal LVEF no regional wall motion abnormalities grade 1 diastolic dysfunction and moderate tricuspid regurgitation. 05/03/2024 she had an abnormal stress echo concerning for LAD territory ischemia. She underwent R&L coronary angiography 05/[address] Boyer it was not concerning for coronary disease, her right heart cath with a normal pulmonary artery pressure and no evidence of constrictive disease. right heart failure/pulmonary hypertension does not seem to be playing a role. Albumin is 3.5 low normal. No evidence of liver disease # mild acute on chronic HFpEF, gross total body volume overload with anasarca pleural effusions and small ascites - all related to advanced kidney disease and component of HFpEF this small pericardial effusion is nonconcerning and has been noted on echocardiogram since 2008 -I doubt she has much intravascular volume overload and may not respond very well to diuresis diuresis with IV Lasix 40 mg IV twice daily to start, monitor weight ins and outs and urine output, a.m. BMP mag while on IV diuretics -would be helpful to discuss diuretic dosing with Dr. Carpenter, especially at discharge # bilateral pleural effusions, right moderate and left small plan for thoracentesis tomorrow with IR for comfort- ordered, ordered pleural fluid labs including cytology. She is not anticoagulated # CKD stage IV Maintaining volume balance can be exceedingly difficult at this stage diuretics as above, monitor BMP daily, currently her renal function is at baseline # ASCVDshe is known to have bilateral carotid stenosis, CT abdomen and pelvis notes extensive vascular calcifications continue aspirin carvedilol losartan and rosuvastatin she has a 3 cm AAA which should be followed as an outpatient but is unlikely to be symptomatic in her life span # former tobacco user scheduled quit October 2023 DVT prophylaxis low-dose enoxaparin PT OT evaluation Lives alone in apartment with 6 steps down then 6 steps up to enter, has managing partner [employer] [place] caregiver, tends to not leave her apt without assistance Prefers full code but no prolonged life support. We discussed expected prognosis with CPR in her age group and with respect to chronic conditions. History of Present Illness Chief Complaint: shortness of breath, lower abdominal swelling and tenderness Primary Care Provider: Eden Cummins MD 88 y/o with chronic diastolic heart failure and CKD stage IV, chronic bilateral pleural effusions who came in with progressive lower abdominal swelling and tenderness as well as dyspnea. She has had chronic bilateral pleural effusions which have been treated in the hospital at [facility] and followed by Dr. Levi. She had a right sided thoracentesis 03/17/2024 which was exudative, repeat thoracentesis 04/11/2024 was transudative. cytology was negative both times. Despite that she continued to have moderate to large pleural effusion especially in the right which seems to be causing her dyspnea. Dr. Levi Thinks the pleural effusions are related to her heart failure and chronic kidney disease, started 40 mg of Lasix and she is taking it every other day at this point. he discussed the consideration of Pleurx if diuresis is ineffective. She says her last thora was apx three weeks ago. For the last few days she has noticed lower abdominal swelling and a feeling of heaviness or discomfort but not pain. She has thigh and buttock edema. Her ankles swell at times but not right now. She had ham for Easter. No fevers, N/V/D, dysuria. She is feeling more short of breath than usual, but her dyspnea progressively worsens after every thora. No history of liver disease. Her patient registration manager is Dr. Carpenter. She thinks her kidney function got worse on daily lasix. A dose doesn't make her pee much more than usual. Her weight fluctuates a lot. ED evaluation was notable for CT abdomen pelvis which was remarkable for diverticulosis a 3 cm AAA, anasarca, small ascites, marked right renal atrophy, bilateral pleural effusions pericardial effusion Allergies Allergy/AdvReac Type Severity Reaction Status Date / Time Penicillins Allergy Severe Anaphylaxis, Unverified 05/23/24 11:03 throat swelling, hives Iodinated Contrast Media Allergy Unknown Causes Unverified 06/05/24 16:03 issues with kidneys hydralazine Allergy Unknown Verified 05/23/24 11:03 latex AdvReac Intermediate Rash Verified 05/23/24 11:03 codeine AdvReac Unknown Unknown Unverified 05/23/24 11:03 Tetanus Vaccines and Toxoid AdvReac Unknown Unknown Unverified 05/23/24 11:03 Home Medications Medication Instructions Recorded Confirmed Type rosuvastatin 20 mg tablet 20 mg PO HS 07/11/20 06/05/24 History aspirin 81 mg tablet,delayed 81 mg PO DAILY 08/22/23 06/05/24 History release bupropion HCl 150 mg tablet,12 hr 150 mg PO BID 06/05/24 06/05/24 History sustained-release carvedilol 25 mg tablet 25 mg PO BID 06/05/24 06/05/24 History furosemide 40 mg tablet 40 mg PO Q OTHER DAY 06/05/24 06/05/24 History losartan 50 mg tablet 50 mg PO DAILY 06/05/24 06/05/24 History Past Med/Surg History Problem List Acute on chronic diastolic heart failure Ex-smoker Short of breath on exertion Vitamin D deficiency Chronic kidney disease, stage 4 (severe) Peripheral vascular disease Accelerated hypertension Hypertensive urgency Paroxysmal A-fib Hypertension (Acute) Headache (Acute) Visual changes (Acute) Asymptomatic carotid artery stenosis Sacroiliac dysfunction Tobacco smoker, 20 cigarettes or fewer per day (Acute) Chronic interstitial lung disease Microscopic hematuria Memory impairment (Acute) Medical History Paige's cyst Bilateral pleural effusion JAVED (dyspnea on exertion) Edema of right lower extremity Pleural effusion Atrial fibrillation Lupus (systemic lupus erythematosus) Acute exacerbation of chronic obstructive pulmonary disease Hypoxia CKD (chronic kidney disease) stage 4, GFR 15-29 ml/min Depression TIA (transient ischemic attack) Hyperlipidemia Hypertension Surgical History H/O sinus surgery H/O excision of lamina of cervical vertebra for decompression of spinal cord Social History Smoking Status: Former smoker Tobacco Type: Cigarettes Cigarettes Per Day: 5-8; Do You Dip or Chew Tobacco: No; Hx Alcohol Use: Yes Hx Substance Use: No Preferred Language: Estonian Communication Ability: Effective Statement Clerk Required: No Beliefs That Will Affect Care: None marital status: / Current Living Situation: Alone Current Living Situation Comment: elderly apartment complex current occupational status: retired Feels Safe at Home: Yes Assistive Devices: Walker Review of Systems Review of Systems: All systems reviewed & are unremarkable except as noted in HPI & below Physical Exam Physical Exam: PHYSICAL EXAMINATION Last 24h vital signs reviewed, see documentation in flowsheet General: comfortable appearing, no distress, frail/thin appearing HEENT: Normocephalic, atraumatic, pupils round and equal, sclerae anicteric, no conjunctival injection, moist mucus membranes Lungs: Normal respiratory effort. Some mild basilar crackles. DTP 1/3 way up on right and 1/4 way up on left Heart: Regular rate and rhythm, no murmurs. Neck vv only mildly elevated Abdomen: Soft, nontender, mildly distended, mild abdominal wall edema. Significant thigh/hip/buttock pitting edema. Bowel sounds present. Extremities: Warm, dry, well-perfused. No foot/ankle edema Neuro: Alert and oriented x 4, face symmetric, moves 4 extremities well Psych: Normal affect and behavior Results & Data Results & Data Vital Signs (Past 12 Hours) Vital Signs Temp Pulse Pulse Resp BP BP Pulse Ox 06/05/24 15:59 06/05/24 14:04 58 L 22 180/79 H 97 06/05/24 13:36 67 06/05/24 13:07 36.7 C 81 18 187/77 H 96 O2 Del Method 06/05/24 15:59 Room Air 06/05/24 14:04 Room Air 06/05/24 13:36 06/05/24 13:07 Room Air Laboratory Results white blood count is normal at 8, not anemic hemoglobin 12.5 creatinine is 2.70 with a BUN of 44 potassium is 4.1 estimated GFR is 16 LFTs are normal, troponin is 3.4 BNP is pending Diagnostic Findings noncontrast spaceCT abdomen and pelvis see below I personally reviewed the chest x-ray film which shows a moderate right and a small left pleural effusion ECG Additional Comments: I personally reviewed the EKG tracing shows sinus rhythm Q's in aVR and V1V3, no change since previous EKG in March PG Care Time/CCT Total # of Minutes Spent Total Time Spent with Patient: Total time spent is greater than 50% in coordination of care (as documented) at patient's floor/unit and/or counseling patient: Coding Level of Care Code 81742 INT INP/OBS CARE 3/75MIN Diagnoses Acute on chronic diastolic heart failure I50.33 Chronic kidney disease, stage 4 (severe) N18.4 Bilateral pleural effusion J90 Peripheral vascular disease I73.9 Chronic interstitial lung disease J84.9 Memory impairment R41.3
[2024-06-05 17:39] LABS: INR 1.1 (0.9-1.1); Partial Thromboplastin Time 27 Seconds (21-31); Prothrombin Time 11.6 Seconds (9.0-12.0)
[2024-06-05] MEDS: FUROSEMIDE 40 MG/4 ML VIAL IV ONE (18:15)
[2024-06-05] MEDS ORDERED: MAGNESIUM HYDROXIDE SUSP 30 ML UDC PO PRN (20:46)
[2024-06-05] MEDS ORDERED: MELATONIN 3 MG TAB PO PRN (20:46)
[2024-06-05] MEDS ORDERED: ALUMINUM/MAGNESIUM SUSP 30 ML UDC PO PRN (20:46)
[2024-06-05] MEDS ORDERED: ONDANSETRON INJ 2 MG/ML 2 ML VIAL IV PRN (20:46)
[2024-06-05] MEDS: ROSUVASTATIN CALCIUM 20 MG TAB PO SCH (21:34)
[2024-06-05] MEDS: buPROPion SR 150 MG TABCR PO SCH (21:34)
[2024-06-05] MEDS: carvediloL 25 MG TAB PO SCH (21:34)
[2024-06-05] MEDS: NITROGLYCERIN 2% OINTMENT 30GM TUBE EXT PRN (22:32)
[2024-06-05] MEDS: NITROGLYCERIN 2% OINTMENT 30GM TUBE EXT SCH (23:20)
[2024-06-05] MEDS: ACETAMINOPHEN 325 MG TAB PO PRN (23:40)
[2024-06-05] MEDS: LABETALOL HCL IV 5 MG/ML 20ML IV STA (23:53)
--- NOTE | 2024-06-06 00:13 | Communication Note ---
Date of Service: June 06, 2024 Notified by nursing patient complaining of chest tightness. Vitals: BP 197/87 HR: 70. Pain is 4/10. No SOB or palpitations EKG: Normal sinus, No ST changes. Troponin 9.7 (from 3.4). Nitropaste placed On re eval, after an HR BP: 220/90. Patient complaining of headaches. No neuro deficits. Denied visual disturbances. Chest pain improving. IV Labetalol 5mg given Repeat troponin ordered after 6 hr Will continue to monitor Exchange Consultant Attestation (Dr Benjamin Goldman): I independently reviewed the H&P, labs, EKG, imaging, problem list, medication list, past medical history. I verified all moreno points and agree with resident physician Dr Cristobal Sagastume MD and agree with the above plan.
[2024-06-06] MEDS ORDERED: NITROGLYCERIN 2% OINTMENT 30GM TUBE EXT PRN (06:15)
[2024-06-06 06:26] LABS: BUN Creatinine Ratio 15.8 (10-20); Calcium 8.3 mg/dl (8.6-10.3); Creatinine Clr Calc Pharmacy 11.8 ml/min
[2024-06-06] MEDS: LOSARTAN POTASSIUM 50 MG TAB PO SCH (07:42)
[2024-06-06] MEDS: ASPIRIN 81 MG ECTAB PO SCH (07:42)
[2024-06-06] MEDS: FUROSEMIDE 40 MG/4 ML VIAL IV SCH (08:39)
--- NOTE | 2024-06-06 13:57 | Ultrasound Report ---
ULTRASOUND-GUIDED RIGHT THORACENTESIS CLINICAL HISTORY: Large right pleural effusion PROCEDURE: Procedure and risks were explained. Informed consent was obtained. A final timeout was com pleted. The right posterior thorax was prepped and draped in sterile fashion. 1% lidocaine was utiliz ed for skin anesthesia. Utilizing ultrasound guidance, a 5 [place] safety centesis catheter was advanced into the right pleura l effusion. Ultrasound images were obtained. A total of 1100mL of cloudy yellow pleural fluid was rem kelvin and sent to the lab. The catheter was removed and Band-Aid applied. The patient tolerated the pr ocedure well. A chest x-ray will be obtained post procedure. Vital signs will be monitored on the madhavi or. IMPRESSION: Ultrasound-guided right thoracentesis as above. Performed, dictated, and signed by Nnamdi Calvo PA-C; to be co-signed by Dr. Nelson Yang. Electronically signed by: Nelson Yang M.D. 06/06/2024 2:34 PM
--- NOTE | 2024-06-06 14:11 | XRay Report ---
XR chest 1V not portable CLINICAL HISTORY: s/p rt thora COMPARISON STUDY: 06/05/2024 FINDINGS: Heart size and pulmonary vasculature are normal. Stable lucency at the upper lungs, possibl e emphysema. There are small bilateral pleural effusions and adjacent lung base consolidation, stable on the left and improved on the right. No pneumothorax. IMPRESSION: No pneumothorax seen. ACT 112: Negative or not required by law. Electronically signed by: Ward Ellison M.D. 06/06/2024 2:09 PM
[2024-06-06 15:33] LABS: Appearance Pleural Fluid Turbid; Color Pleural Fluid Straw; RBC Pleural Fluid Auto < 2000 /uL; Source Pleural Fluid Right Lung; Total Protein Pleural Fluid 3.1 gm/dl; WBC Pleural Fluid Auto 154 /uL
[2024-06-06 16:34] LABS: Creatinine Clr Calc Pharmacy 11.7 ml/min
[2024-06-06 16:41] LABS: Troponin I High Sensitivity 6.2 pg/ml (0-14)
[2024-06-06] MEDS: FUROSEMIDE 40 MG/4 ML VIAL IV ONE (17:50)
--- NOTE | 2024-06-06 18:24 | Hospitalist Progress Note ---
Date of Service June 06, 2024 Assessment & Plan (1) Cardiorenal syndrome: (2) Chronic kidney disease, stage 4 (severe): (3) Bilateral pleural effusion: (4) Peripheral vascular disease: (5) Memory impairment: Plan 88yo female with CKD stage 4/borderline stage 5, HFpEF, chronic bilateral pleural effusions and chronic dyspnea. She presented with increasing lower abdominal swelling as well as increased dyspnea & recurrent right-sided pleural effusion. #cardiorenal syndrome in setting of chronic kidney disease stage 4 / borderline stage 5 - * s/p IV lasix in the ER yesterday and again this am * s/p right-sided thoracentesis with 1100cc of fluid removed * dyspnea much improved * recent L/R heart cath by Dr Boyer on 05/23/24 with normal right heart pressures, normal CO/CI, etc. * thus, volume overload is likely on the basis of her advanced CKD as opposed to HFpEF * give another dose of IV lasix this afternoon then plan to recheck BMP in am 06/07 #accelerated HTN / hypertensive emergency - * severely elevated BPs overnight with systolics >200 * associated chest pain * chest pain/dyspnea improved s/p diuresis and s/p IV labetalol * BPs improved today * no recurrent chest symptoms * troponin this am negative; repeat troponin this afternoon again negative * with 1 hour of chest pain symptoms, if ischemic, troponin elevation should have occurred * can't rule out CAD fully but unlikely * cont coreg 25mg BID; cont losartan 50mg daily # bilateral pleural effusions, right moderate and left small - * recurrent, with need for multiple thoracentesis procedures over the last 2 months * cytology x 2 negative * pleural fluid on 1 occasion was exudative; since then all transudative including today's based on Light's criteria * follows with Dr Levi * there had been some discussion about possible pleurX placement but most recent recommendation is pleuroscopy at a tertiary care center * this could allow pleural biopsy and pleurodesis if felt necessary # CKD stage IV / borderline stage 5 - * s/p IV lasix yesterday pm and this am * will give another dose of IV lasix this afternoon * then BMP tomorrow for stability of creatinine * consider discussing diuretic management with nephrology given the complexities of her cardiopulmonary / nephro status #ASCVD * has known bilateral carotid stenosis * continue aspirin, carvedilol, losartan and rosuvastatin * has 3 cm AAA which should be followed as an outpatient # former tobacco user - * quit October 2023 #DVT prophylaxis - * start heparin 5000 BID tomorrow if no signs/symptoms of bleeding from her thoracentesis PT/OT judy Admission and Anticipated Discharge Date Admission Date: June 05, 2024 Subjective patient underwent thoracentesis today by IR 1000+cc of fluid obtained on the right side this is her 4th time needing thoracentesis for recurrent pleural effusion breathing is improved relative to admission overnight had episode of severe HTN with SBP >200 during that episode she experienced about 1 hour of chest pain across the entire chest she had mild shortness of breath and mild nausea in addition to the chest pain symptoms resolved when her BP improved by report got a dose of labetalol for the severely elevated BP with improvement she had a cath by Dr Boyer within the last month - L & R heart cath done to check CO, pulmonary pressures, etc. hemodynamics were all essentially normal coronary angiogram was not performed due to her chronic CKD Review of Systems Review of Systems: pulm - minimal cough GI - no vomiting cv - no recurrent chest pain or tightness since last night Physical Exam Physical Exam: gen - resting comfortably in bed, NAD neck - no JVD heart - RRR, s1 s2, no murmur lungs - mildly decreased BS both bases, mild rales R base, no wheeze, no increased work of breathing abd - soft NT BS+; mild ascites and/or body wall edema ext - no peripheral edema, pulses b/l feet 2+ vascular - radial pulses 2+ b/l psych - a/o x 3 Results & Data Results & Data Vital Signs (Past 12 Hours) Vital Signs Temp Pulse Pulse Pulse Resp BP BP 06/06/24 17:50 121/52 L 06/06/24 17:01 06/06/24 15:51 36.4 C L 66 17 118/48 L 06/06/24 15:06 66 06/06/24 14:31 36.6 C 68 16 135/66 06/06/24 11:08 36.6 C 63 17 113/53 L 06/06/24 08:31 06/06/24 07:58 36.8 C 76 18 145/79 H 06/06/24 07:32 64 Pulse Ox O2 Del Method 06/06/24 17:50 04/23/25 17:01 Room Air 06/06/24 15:51 97 Room Air 06/06/24 15:06 06/06/24 14:31 95 Room Air 06/06/24 11:08 94 Room Air 06/06/24 08:31 Room Air 06/06/24 07:58 97 Room Air 06/06/24 07:32 Laboratory Results Laboratory Results - last 24 hr 06/06/24 06/06/24 06/06/24 05:25 14:00 15:56 Sodium 140 Potassium 4.0 Chloride 105 Carbon Dioxide 31 Anion Gap 4 BUN 45 H Creatinine 2.84 H 2.86 H Est Cr Clr Drug Dosing 11.8 11.7 eGFR 15.68 15.55 BUN/Creatinine Ratio 15.8 Glucose 124 H Calcium 8.3 L Magnesium 2.0 Lactate Dehydrogenase 120 Troponin I High Sens 6.7 6.2 Fluid Neutrophils % Pending Fluid Comment Pleural Fluid Source Right Lung Pleural Color Straw Pleural Appearance Turbid Pleural WBC (Auto) 154 Pleural RBC (Auto) < 2000 Pleural Total Protein 3.1 Pleural LDH 63 Pleural Glucose 128 Diagnostic Findings Thoracentesis/Paracentesis US 06/06/24 08:00 ULTRASOUND-GUIDED RIGHT THORACENTESIS CLINICAL HISTORY: Large right pleural effusion PROCEDURE: Procedure and risks were explained. Informed consent was obtained. A final timeout was completed. The right posterior thorax was prepped and draped in sterile fashion. 1% lidocaine was utilized for skin anesthesia. Utilizing ultrasound guidance, a 5 [place] safety centesis catheter was advanced into the right pleural effusion. Ultrasound images were obtained. A total of 1100mL of cloudy yellow pleural fluid was removed and sent to the lab. The catheter was removed and Band-Aid applied. The patient tolerated the procedure well. A chest x-ray will be obtained post procedure. Vital signs will be monitored on the floor. IMPRESSION: Ultrasound-guided right thoracentesis as above. Performed, dictated, and signed by Nnamdi Calvo PA-C; to be co-signed by Dr. Nelson Yang. Electronically signed by: Nelson Yang M.D. 06/06/2024 2:34 PM Chest X-Ray 06/06/24 13:46 XR chest 1V not portable CLINICAL HISTORY: s/p rt thora COMPARISON STUDY: 06/05/2024 FINDINGS: Heart size and pulmonary vasculature are normal. Stable lucency at the upper lungs, possible emphysema. There are small bilateral pleural effusions and adjacent lung base consolidation, stable on the left and improved on the right. No pneumothorax. IMPRESSION: No pneumothorax seen. ACT 112: Negative or not required by law. Electronically signed by: Ward Ellison M.D. 06/06/2024 2:09 PM PG Care Time/CCT Total # of Minutes Spent Total Time Spent with Patient: Total time spent is greater than 50% in coordination of care (as documented) at patient's floor/unit and/or counseling patient: Coding Level of Care Code 86841 SUB INP/OBS CARE 2/35MIN Diagnoses Cardiorenal syndrome I13.10 Chronic kidney disease, stage 4 (severe) N18.4 Bilateral pleural effusion J90 Peripheral vascular disease I73.9 Memory impairment R41.3
[2024-06-07 06:17] LABS: Hematocrit (blood only) 33.5 % (37.0-47.0); Hemoglobin 10.8 g/dl (12.0-16.0); Mean Corpuscular Hemoglobin 28.7 pg (25.0-34.0); Mean Corpuscular Hgb Conc 32.2 g/dL (32.0-36.0); Mean Corpuscular Volume 89.1 fL (80.0-100.0); Mean Platelet Volume 10.4 fL (9.4-12.4); Platelet Count 204 K/uL (130-400); RDW Coefficient of Variation 14.1 % (11.5-14.5); RDW Standard Deviation 46.1 fL (36.4-46.3); Red Blood Count 3.76 M/uL (4.20-5.40); White Blood Count 6.86 K/ul (4.8-10.8)
[2024-06-07 06:24] LABS: Creatinine Clr Calc Pharmacy 10.6 ml/min; Potassium 3.8 mmol/L (3.5-5.1)
[2024-06-07 07:02] LABS: Eosinophils, Fluid 1 %; Lymphocytes, Fluid 47 %; Mono,Macrophage,Mesothelial 45 %; Neutrophils, Fluid 7 %
--- NOTE | 2024-06-07 10:48 | Electrocardiogram Report ---
Test Reason : Blood Pressure : */* mmHG Vent. Rate : 67 BPM Atrial Rate : * BPM P-R Int : * ms QRS Dur : 74 ms QT Int : 430 ms P-R-T Axes : * -10 28 degrees QTcB Int : 454 ms Normal sinus rhythm Septal infarct (cited on or before 11-Jul-2020) Abnormal ECG When compared with ECG of 05-Jun-2024 13:25, No significant change was found Confirmed by Leif Peters ([id number]) on 06/07/2024 10:48:18 AM Referred By: REFERRED SELF Confirmed By: Leif Peters
--- NOTE | 2024-06-07 20:09 | Hospitalist Progress Note ---
Date of Service June 07, 2024 Assessment & Plan (1) Cardiorenal syndrome: (2) Chronic kidney disease, stage 4 (severe): (3) Bilateral pleural effusion: (4) Peripheral vascular disease: (5) Memory impairment: Plan 88yo female with CKD stage 4/borderline stage 5, HFpEF, chronic bilateral pleural effusions and chronic dyspnea. She presented with increasing lower abdominal swelling as well as increased dyspnea & recurrent right-sided pleural effusion. #cardiorenal syndrome in setting of chronic kidney disease stage 4 / borderline stage 5 - * s/p multiple doses of IV lasix (3 doses in total) * s/p right-sided thoracentesis with 1100cc of fluid removed * dyspnea much improved/resolved * recent L/R heart cath by Dr Boyer on 05/23/24 with normal right heart pressures, normal CO/CI, etc. * thus, volume overload is likely on the basis of her advanced CKD as opposed to HFpEF * creatinine has risen with lasix thus no lasix today (and she appears euvolemic) #accelerated HTN / hypertensive emergency - * severely elevated BPs with systolics >200 the evening of admission * associated chest pain * chest pain/dyspnea improved s/p diuresis and s/p IV labetalol * BPs improved, and she is actually orthostatic * no recurrent chest symptoms * troponins negative this admission * with 1 hour of chest pain symptoms, if ischemic, troponin elevation should have occurred * can't rule out CAD fully but unlikely #lightheadedness 2nd to orthostasis - * orthostatics checked today and she has systolic BP of 90 with standing * she was lightheaded with this drop * ideally we don't give IVF due to volume overload at admission * will need to cut back coreg, and hold ARB * recheck orthostatics tomorrow AM * repeat BMP am # bilateral pleural effusions, right moderate and left small - * recurrent, with need for multiple thoracentesis procedures over the last 2 months * cytology x 3 negative including cytology this admission * pleural fluid on 1 occasion was exudative; since then all transudative including today's based on Light's criteria * follows with Dr Levi * there had been some discussion about possible pleurX placement but most recent recommendation is pleuroscopy at a tertiary care center * this could allow pleural biopsy and pleurodesis if felt necessary * our nurse navigator will contact pulmonary office to ensure referral gets made # CKD stage IV / borderline stage 5 - * creatinine aracelis mildly with diuresis; Cr now 2.9 * no lasix today * hold ARB * repeat BMP am #ASCVD * has known bilateral carotid stenosis * continue aspirin, carvedilol, and rosuvastatin * has 3 cm AAA which should be followed as an outpatient # former tobacco user - * quit October 2023 #DVT prophylaxis - * start heparin 5000 BID PT/OT evals appreciated Admission and Anticipated Discharge Date Admission Date: June 05, 2024 Subjective no events overnight she is hoping to go home today she continues to have lightheadedness with standing lasts for 1-2 minutes then resolves hasn't done much walking since hospital admission lightheadedness has been present for about 1-2 months no syncope otherwise feeling ok tele stable overnight eating fine Review of Systems Review of Systems: cv - no cp, no orthopnea, no edema pulm - breathing near normal, no dyspnea GI - no abd pain or N/V Physical Exam Physical Exam: gen - resting comfortably in bed, NAD, looks well today neck - no JVD heart - RRR, s1 s2, no murmur lungs - mildly decreased BS both bases, minimal rales R base abd - soft NT BS+ND ext - scant peripheral edema mainly in thighs; no ankle edema; pulses b/l feet 2+ psych - a/o x 3 Results & Data Results & Data Vital Signs (Past 12 Hours) Vital Signs Temp Pulse Pulse Resp BP Pulse Ox O2 Del Method 06/07/24 16:33 Room Air 06/07/24 15:59 36.6 C 70 17 115/52 L 96 Room Air 06/07/24 13:01 73 06/07/24 12:22 36.2 C L 70 17 105/61 94 Room Air 06/07/24 08:12 Room Air Laboratory Results Laboratory Results - last 24 hr 06/07/24 05:18 WBC 6.86 RBC 3.76 L Hgb 10.8 L Hct 33.5 L MCV 89.1 MCH 28.7 MCHC 32.2 RDW Std Deviation 46.1 RDW Coeff of Gabriela 14.1 Plt Count 204 MPV 10.4 Sodium 140 Potassium 3.8 Chloride 105 Carbon Dioxide 29 Anion Gap 6 BUN 44 H Creatinine 2.94 H Est Cr Clr Drug Dosing 10.6 eGFR 15.04 BUN/Creatinine Ratio 15.0 Glucose 95 Calcium 8.0 L Magnesium 2.0 PG Care Time/CCT Total # of Minutes Spent Total Time Spent with Patient: Total time spent is greater than 50% in coordination of care (as documented) at patient's floor/unit and/or counseling patient: Coding Level of Care Code 30333 SUB INP/OBS CARE 2/35MIN Diagnoses Cardiorenal syndrome I13.10 Chronic kidney disease, stage 4 (severe) N18.4 Bilateral pleural effusion J90 Peripheral vascular disease I73.9 Memory impairment R41.3
[2024-06-07] MEDS: carvediloL 12.5 MG TAB PO SCH (20:28)
[2024-06-08 06:58] LABS: BUN Creatinine Ratio 15.2 (10-20); Calcium 8.3 mg/dl (8.6-10.3); Potassium 4.3 mmol/L (3.5-5.1)
[2024-06-08] MEDS: HEPARIN SOD 5,000 UNIT/0.5 ML VIAL SQ SCH (08:28)
[2024-06-08] MEDS: POLYETHYLENE (MIRALAX) 17 GM PACK PO PRN (08:28)
[2024-06-08 10:40] VITALS: BP 107/48; PULSE 67; RESP 20; TEMP 98.6; O2SAT 96
--- NOTE | 2024-06-08 11:47 | Discharge Summary ---
Discharge Summary Date of Service June 08, 2024 Principal Dx & Hospital Course #1 = Principal Diagnosis (1) Cardiorenal syndrome: (2) Chronic kidney disease, stage 4 (severe): (3) Bilateral pleural effusion: (4) Peripheral vascular disease: (5) Memory impairment: Plan 88yo female with CKD stage 4/borderline stage 5, HFpEF, chronic bilateral pleural effusions and chronic dyspnea. She presented with increasing lower abdominal swelling as well as increased dyspnea & recurrent right-sided pleural effusion. #cardiorenal syndrome in setting of chronic kidney disease stage 4 / borderline stage 5 - * s/p multiple doses of IV lasix (3 doses in total) * s/p right-sided thoracentesis with 1100cc of fluid removed * dyspnea much improved/resolved * recent L/R heart cath by Dr Boyer on 05/23/24 with normal right heart pressures, normal CO/CI, etc. * thus, volume overload is likely on the basis of her advanced CKD as opposed to HFpEF * creatinine has risen with lasix thus no lasix today (and she appears euvolemic) #accelerated HTN / hypertensive emergency - * severely elevated BPs with systolics >200 the evening of admission * associated chest pain * chest pain/dyspnea improved s/p diuresis and s/p IV labetalol * BPs improved, and she is actually orthostatic * no recurrent chest symptoms * troponins negative this admission * with 1 hour of chest pain symptoms, if ischemic, troponin elevation should have occurred * can't rule out CAD fully but unlikely #lightheadedness 2nd to orthostasis - * orthostatics checked today and she has systolic BP of 90 with standing * she was lightheaded with this drop * ideally we don't give IVF due to volume overload at admission * will need to cut back coreg, and hold ARB * recheck orthostatics tomorrow AM * repeat BMP am # bilateral pleural effusions, right moderate and left small - * recurrent, with need for multiple thoracentesis procedures over the last 2 months * cytology x 3 negative including cytology this admission * pleural fluid on 1 occasion was exudative; since then all transudative including today's based on Light's criteria * follows with Dr Levi * there had been some discussion about possible pleurX placement but most recent recommendation is pleuroscopy at a tertiary care center * this could allow pleural biopsy and pleurodesis if felt necessary * our nurse navigator will contact pulmonary office to ensure referral gets made # CKD stage IV / borderline stage 5 - * creatinine aracelis mildly with diuresis; Cr now 2.9 * no lasix today * hold ARB * repeat BMP am #ASCVD * has known bilateral carotid stenosis * continue aspirin, carvedilol, and rosuvastatin * has 3 cm AAA which should be followed as an outpatient # former tobacco user - * quit October 2023 #DVT prophylaxis - * start heparin 5000 BID PT/OT evals appreciated Admission HPI Per Admitting Provider 88 y/o with chronic diastolic heart failure and CKD stage IV, chronic bilateral pleural effusions who came in with progressive lower abdominal swelling and tenderness as well as dyspnea. She has had chronic bilateral pleural effusions which have been treated in the hospital at [facility] and followed by Dr. Levi. She had a right sided thoracentesis 03/17/2024 which was exudative, repeat thoracentesis 04/11/2024 was transudative. cytology was negative both times. Despite that she continued to have moderate to large pleural effusion especially in the right which seems to be causing her dyspnea. Dr. Levi Thinks the pleural effusions are related to her heart failure and chronic kidney disease, started 40 mg of Lasix and she is taking it every other day at this point. he discussed the consideration of Pleurx if diuresis is ineffective. She says her last thora was apx three weeks ago. For the last few days she has noticed lower abdominal swelling and a feeling of heaviness or discomfort but not pain. She has thigh and buttock edema. Her ankles swell at times but not right now. She had ham for Easter. No fevers, N/V/D, dysuria. She is feeling more short of breath than usual, but her dyspnea progressively worsens after every thora. No history of liver disease. Her driving teacher is Dr. Carpenter. She thinks her kidney function got worse on daily lasix. A dose doesn't make her pee much more than usual. Her weight fluctuates a lot. ED evaluation was notable for CT abdomen pelvis which was remarkable for diverticulosis a 3 cm AAA, anasarca, small ascites, marked right renal atrophy, bilateral pleural effusions pericardial effusion Discharge Exam gen - resting comfortably in bed, NAD, looks well today neck - no JVD heart - RRR, s1 s2, no murmur lungs - mildly decreased BS both bases, minimal rales R base abd - soft NT BS+ND ext - scant peripheral edema mainly in thighs; no ankle edema; pulses b/l feet 2+ psych - a/o x 3 Discharge Plan Discharge Items Patient Disposition: Home - Self-Care Reason For Visit: Fluid overload, pleural effusions Discharge Diagnosis: 1. Fluid overload due to advanced kidney disease 2. Recurrent right-sided pleural effusion with thoracentesis procedure to remove the fluid 3. Shortness of breath - due to #1, #2 - improved 4. Orthostatic hypotension - cause of your lightheadedness (drop in blood pressure with standing) 5. Severe chronic kidney disease 6. Left chest wall discomfort - likely muscle strain 7. Left foot numbness - recommend follow-up with neurology for EMG study to determine etiology of numbness (spine issue, pinched nerve in ankle, etc) Activity: Resume your previous activity Activity Comment: as tolerated Non-emergency contact: Primary Care Provider and Specialist Call non-emergency contact if: you have any medication questions, your symptoms worsen and you have a fever Follow-up/Referrals: Johnny Carpenter MD [Physician] - 06/12/24 11:30 am () Emma Levi MD, [facility] [Physician] - 06/18/24 (keep previously scheduled visit with pulmonary - Dr Levi ) Elise Shafer CRNP [Nurse Practitioner] - (Ms Shafer's cardiology office will contact you with an appointment date/time) Eden Cummins MD [Primary Care Provider] - (1-2 weeks ) Diet: Low Sodium (2gm) Fluids: 1500ml (6 cups) Addtl Attending Provider Instructions: Mrs Patterson, You were hospitalized due to fluid overload (too much water/fluid in your body including the lungs, abdomen, legs, etc) as well as shortness of breath. At time of admission your chest x-ray showed the right-sided pleural effusion had returned. This was the primary reason for your shortness of breath. You underwent thoracentesis procedure to remove the effusion from the right lung. Over 1000ml of fluid was removed. You also received IV furosemide to remove water from other areas of the body (abdomen, lungs, etc). The fluid studies did not show evidence of cancer. We did not find infection in the fluid either. During your stay you reported ongoing lightheadedness. You have had this problem for some time. It is caused by a drop in your blood pressure with standing. This is called orthostatic hypotension. This condition can be challenging to treat. To improve the orthostatic hypotension we stopped the losartan and reduced the dose of your carvedilol from 25mg twice daily to 12.5mg twice daily. You also mentioned numbness in your feet and a discomfort over the left armpit/chest wall area. I would recommend a visit with [facility] for the numbness. They can run tests (EMG study) to determine if it is a pinched nerve in your spine causing the numbness or a pinched nerve in the lower portion of the leg. They may also recommend medicine for the numbness. One example of medicine to treat nerve pain/numbness is gabapentin. Finally, we corresponded with Dr Levi from pulmonary and he is referring you to [facility] for consideration of a procedure called pleuroscopy. The referral process has been started and hopefully you will hear about an appointment date/time over the next few weeks. Recommendations - 1. stop your losartan. 2. HOLD your furosemide water pill today and tomorrow. Resume Tuesday morning, 06/10/24. 3. have a repeat blood draw next week before your appointment with Dr Carpenter. This is to recheck your creatinine (kidney level). 4. REDUCE your carvedilol from 25mg twice daily to 12.5mg twice daily. New prescription sent to your pharmacy for you. 5. for the left armpit discomfort/chest wall discomfort - xxyb-bor-lmepcog tylenol 1000mg every 8 hours as needed, maximum 3000mg in 24 hours. Also consider a heating pad. 6. please check your blood pressure regularly at home. If you are consistently getting systolic blood pressures (top number) greater than 180 then take 2.5mg of amlodipine x 1. This was previously prescribed by your outpatient providers. 7. please continue to check your weight every morning on the same scale and keep a log of your weights. If you gain more than 2-3 pounds over a 1-2 day period please let Ms Shafer from [facility] know or Dr Carpenter. This could be a sign of worsening water retention and they may adjust your furosemide in response to the weight gain. Follow-up - see separate section Return to [facility] or any hospital if - * you have fevers over 100 degrees * you have worsening shortness of breath * you have chest pains * you have severe lightheadedness or feel like you could pass out * any other concerns It was our pleasure to care for you! -Dr Contreras Pending Studies at Discharge: No Stand-Alone Forms: [facility], Smoking Cessation Medications and DC Order Prescriptions: New amlodipine 2.5 mg tablet 2.5 mg PO DAILY PRN (Reason: high blood pressure) Qty: 30 0RF Rx Instructions: only take if your systolic blood pressure (top number) is 180 or higher consistently Continued rosuvastatin 20 mg tablet 20 mg PO HS aspirin 81 mg tablet,delayed release (DR/EC) 81 mg PO DAILY bupropion HCl 150 mg tablet sustained-release 12 hr 150 mg PO BID Changed carvedilol 12.5 mg tablet 12.5 mg PO BID Qty: 60 2RF Rx Instructions: must administer with a meal/food Held furosemide 40 mg tablet 40 mg PO Q OTHER DAY Hold Instructions: Resume on 06/10/24. Discontinued losartan 50 mg tablet 50 mg PO DAILY Discharge Orders: Discharge Order (Routine); Ordered 06/08/24 Ordered By: Benjamin Fermin/Other Patient Handouts: Understanding Pleural Effusion, Orthostatic Hypotension Admission Data Admit Date/Time: 06/05/24 18:13 Attending Provider: Benjamin Contreras Admit Provider: Elise Grace Primary Care Provider: Eden Cummins Other Providers: Elise Grace; [facility] Hospital Stay Data Consultations 06/05/24 17:17 ED Decision to Admit Stat Diagnostic Imagining Performed 06/05/24 14:52 CT Abd and Pelvis [CT abd pelvis wo con] Stat 06/06/24 08:00 IR thoracentesis wo tube US Routine Pending Results Patient Have Any Pending Studies at Discharge: No Discharge Instructions Given to Patient (Per Discharging Provider) Mrs Patterson, You were hospitalized due to fluid overload (too much water/fluid in your body including the lungs, abdomen, legs, etc) as well as shortness of breath. At time of admission your chest x-ray showed the right-sided pleural effusion had returned. This was the primary reason for your shortness of breath. You underwent thoracentesis procedure to remove the effusion from the right lung. Over 1000ml of fluid was removed. You also received IV furosemide to remove water from other areas of the body (abdomen, lungs, etc). The fluid studies did not show evidence of cancer. We did not find infection in the fluid either. During your stay you reported ongoing lightheadedness. You have had this problem for some time. It is caused by a drop in your blood pressure with standing. This is called orthostatic hypotension. This condition can be challenging to treat. To improve the orthostatic hypotension we stopped the losartan and reduced the dose of your carvedilol from 25mg twice daily to 12.5mg twice daily. You also mentioned numbness in your feet and a discomfort over the left armpit/chest wall area. I would recommend a visit with [facility] for the numbness. They can run tests (EMG study) to determine if it is a pinched nerve in your spine causing the numbness or a pinched nerve in the lower portion of the leg. They may also recommend medicine for the numbness. One example of medicine to treat nerve pain/numbness is gabapentin. Finally, we corresponded with Dr Levi from pulmonary and he is referring you to [facility] for consideration of a procedure called pleuroscopy. The referral process has been started and hopefully you will hear about an appointment date/time over the next few weeks. Recommendations - 1. stop your losartan. 2. HOLD your furosemide water pill today and tomorrow. Resume Tuesday morning, 06/10/24. 3. have a repeat blood draw next week before your appointment with Dr Carpenter. This is to recheck your creatinine (kidney level). 4. REDUCE your carvedilol from 25mg twice daily to 12.5mg twice daily. New prescription sent to your pharmacy for you. 5. for the left armpit discomfort/chest wall discomfort - qzio-fah-dyfkcdr tylenol 1000mg every 8 hours as needed, maximum 3000mg in 24 hours. Also consider a heating pad. 6. please check your blood pressure regularly at home. If you are consistently getting systolic blood pressures (top number) greater than 180 then take 2.5mg of amlodipine x 1. This was previously prescribed by your outpatient providers. 7. please continue to check your weight every morning on the same scale and keep a log of your weights. If you gain more than 2-3 pounds over a 1-2 day period please let Ms Shafer from [facility] know or Dr Carpenter. This could be a sign of worsening water retention and they may adjust your furosemide in response to the weight gain. Follow-up - see separate section Return to [facility] or any hospital if - * you have fevers over 100 degrees * you have worsening shortness of breath * you have chest pains * you have severe lightheadedness or feel like you could pass out * any other concerns It was our pleasure to care for you! -Dr Cnotreras Coding Diagnoses Cardiorenal syndrome I13.10 Chronic kidney disease, stage 4 (severe) N18.4 Bilateral pleural effusion J90 Peripheral vascular disease I73.9 Memory impairment R41.3
== END 2024-06-08 14:49 | disposition home or self-care (01) | DRG 291 ==
LOC: ED 13:04 → 2E 18:13 → SUATTDRO 18:13 → 2E 20:30
DX: Z79.82 Long term (current) use of aspirin; I13.0 Hypertensive heart and chronic kidney disease with heart failure and stage 1 through stage 4 chronic kidney disease, or unspecified chronic kidney disease; I16.1 Hypertensive emergency; Z79.899 Other long term (current) drug therapy; Z88.5 Allergy status to narcotic agent; Z88.7 Allergy status to serum and vaccine; Z91.040 Latex allergy status; Z91.041 Radiographic dye allergy status; I50.33 Acute on chronic diastolic (congestive) heart failure; J84.9 Interstitial pulmonary disease, unspecified; R41.3 Other amnesia; J91.8 Pleural effusion in other conditions classified elsewhere; N18.4 Chronic kidney disease, stage 4 (severe); I95.1 Orthostatic hypotension; I73.9 Peripheral vascular disease, unspecified; Z87.891 Personal history of nicotine dependence; R18.8 Other ascites; Z86.73 Personal history of transient ischemic attack (TIA), and cerebral infarction without residual deficits; I25.10 Atherosclerotic heart disease of native coronary artery without angina pectoris; I30.9 Acute pericarditis, unspecified; Z88.0 Allergy status to penicillin